=== PATIENT | female | born 1990 | race Caucasian/White ===

== ENCOUNTER 2024-02-17 19:01 | Outpatient (REF) | payer BC, SELFPAY ==
[2024-02-24 13:08] LABS: Age Gdln ACOG Testing Note (.); HPV Aptima Negative (Negative); IGP, Aptima HPV, rfx 16/18,45 Note (.)
== END 2024-02-17 19:02 | disposition home or self-care (01) ==
LOC: LAB 19:01
PROVIDERS: Visit Provider Physician Assistant
DX: Z01.419 Encounter for gynecological examination (general) (routine) without abnormal findings (principal)
CPT/HCPCS: 87624; 88175

== ENCOUNTER 2025-05-14 21:44 | Outpatient (REF) | payer BC, SELFPAY ==
--- OUTSIDE RECORDS SUMMARY | 2025-05-02 11:30 | XMS_ITS | Encounter Summary ---
Author Organization [facility] Address [address] [place] [address] Care Team Providers Care Graves Registration Specialist Name Role Phone Perico Pope Primary Care Provider [phone] Encounter Details DateTypeDepartmentCare Team (Latest Contact Info)Ujudpboldvy51/17/2025 11:30 AM ESTClinical Support [facility] [address] [facility] [address] [place] [address] Lesli Cain, [facility] [address] [facility] [address] [place] [address] ESTEFANY (generalized anxiety disorder) ; Moderate episode of recurrent major depressive disorder (HCC) Social History Tobacco UseTypesPacks/DayYears UsedDateSmoking Tobacco: Some DaysCigarettes0.310 Smokeless Tobacco: NeverAlcohol UseStandard Drinks/WeekCommentsNever0 (1 standard drink = 0.6 oz pure alcohol)B1300 Health LiteracyAnswerDate RecordedHow often do you need to have someone help you when you read instructions, pamphlets, or other written material from your doctor or pharmacy?Never 02/02/2024Social Connection and Isolation PanelAnswerDate RecordedIn a typical week, how many times do you talk on the phone with family, friends, or neighbors?Once a week02/02/2024How often do you get together with friends or relatives?Once a week02/02/2024How often do you attend caodaism or pentecostal services?Never4Do you belong to any clubs or organizations such as caodaism groups, unions, fraternal or athletic groups, or school groups?No 02/02/2024How often do you attend meetings of the clubs or organizations you belong to?Never02/02/2024re you , , , , never , or living with a partner?Jdlepwm3702/02/2024UDIT-CAnswerDate RecordedQ1: How often do you have a drink containing alcohol?Monthly or less02/02/2024Q2: How many drinks containing alcohol do you have on a typical day when you are drinking?1 or Q3: How often do you have six or more drinks on one occasion?Never02/02/2024Overall Financial Resource Strain (CARDIA)AnswerDate RecordedHow hard is it for you to pay for the very basics like food, housing, medical care, and heating?Somewhat hard02/02/2024HQ-2AnswerDate RecordedPatient Health Questionnaire-2 Eiiyb990[facility] [place] of [facility] - Occupational Stress QuestionnaireAnswerDate RecordedDo you feel stress - tense, restless, nervous, or anxious, or unable to sleep at night because your mind is troubled all the time - these days?Not at all02/02/2024Exercise Vital SignAnswerDate RecordedOn average, how many days per week do you engage in moderate to strenuous exercise (like a brisk walk)?7 days02/02/2024On average, how many minutes do you engage in exercise at this level?60 min02/02/2024Hunger Vital SignAnswerDate RecordedWithin the past 12 months, you worried that your food would run out before you got the money to buymore.Never true02/02/2024 Within the past 12 months, the food you bought just didn't last and you didn't have money to get more.Never true02/02/2024RAPARE - TransportationAnswerDate RecordedIn the past 12 months, has lack of transportation kept you from medical appointments or from getting medications?No02/02/2024In the past 12 months, has lack of transportation kept you from meetings, work, or from getting things needed for daily living?No02/02/2024Housing Stability Vital SignAnswerDate RecordedIn the last 12 months, was there a time when you were not able to pay the mortgage or rent on time?No02/02/2024In the past 12 months, how many times have you moved where you were living?t any time in the past 12 months, were you homeless or living in a chcf (including now)?No02/02/2024 CommentsUnknownSex and Gender InformationValueDate RecordedSex Assigned at UhrpgGkcduz17/18/2024 9:56 AM EDTLegal AauMyotpm67/15/2023 8:27 PM EDTGender TpwlivzuUllkur37/18/2024 9:56 AM EDTSexual OrientationNot on filedocumented as of this encounter Plan of Treatment DateTypeDepartmentCare Team (Latest Contact Info)Gtldpxgoihc98/07/2026 11:30 AM ESTClinical Support [facility] [place] [facility] [address] [place] [phone] Lesli Cain [facility] [address] [place] [address] 05/29/2025 9:30 AM ESTAncillary Procedure [facility] [address] [place] [address] [place] [phone] 05/30/2025 9:30 AM ESTClinical Support [facility] [place] [facility] [address] [place] [address] Lesli Cain [facility] [address] [place] [address] 06/06/2025 12:30 PM ESTClinical Support [facility] [place] [facility] [address] [place] [address] Lesli Cain [facility] [address] [place] [address] 06/11/2025 8:30 AM ESTOffice Visit [facility] [place] [facility] [address] [place] [phone] Sonya Valencia PA [address] [facility] [place] [address] 07/18/2025 10:20 AM ESTOffice Visit [facility] [place] [facility] [address] [facility] [address] [place] [address] Perico Pope DO [address] [facility] [address] [place] [address] documented as of this encounter Visit Diagnoses Diagnosis ESTEFANY (generalized anxiety disorder) Generalized anxiety disorder Moderate episode of recurrent major depressive disorder (HCC) documented in this encounter Care Teams Team MemberRelationshipSpecialtyStart DateEnd Date Perico Pope DO [address] [facility] [address] [place] [address] PCP - General02/02/24documented as of this encounter
--- OUTSIDE RECORDS SUMMARY | 2025-05-14 11:00 | XMS_ITS | Encounter Summary ---
Author Organization [facility] Address [address] [place] [address] Care Team Providers Care Prosthetic Aides Teacher Name Role Phone Perico Pope Primary Care Provider + [phone] Reason for Visit * ReasonCommentsWell Women Visit Encounter Details DateTypeDepartmentCare Team (Latest Contact Info)Dfarklrnugw68/29/2025 11:00 AM ESTProcedure Visit [facility] [place] [facility] [address] [facility] [place] [address] Radha Linder, ABI [address] [facility] [place] [address] PCOS (polycystic ovarian syndrome) (Primary Dx); Well woman exam with routine gynecological exam; Acne, unspecified acne type Social History Tobacco UseTypesPacks/DayYears UsedDateSmoking Tobacco: Some [...] relatives?Once a week02/02/2024How often do you attend evangelical or restoration services?Never02/02/2024o you belong to any clubs or organizations such as evangelical groups, unions, fraternal or athletic groups, or school groups?No 02/02/2024How often do you attend meetings of the clubs or organizations you belong to?Never02/02/2024re you , , , , never , or living with a partner?Aiojzox9502/02/2024UDIT-CAnswerDate RecordedQ1: How often do you have a [...] care, and heating?Somewhat hard02/02/2024HQ-2AnswerDate RecordedPatient Health Questionnaire-2 Fviww071[facility] [place] of Occupational Health - Occupational Stress QuestionnaireAnswerDate [...] or from getting things needed for daily living?02/02/2024Housing Stability Vital SignAnswerDate RecordedIn the last 12 months, was there a time when you were not able to pay the mortgage or rent on time?02/02/2024In the past 12 months, how many times have you moved where you were living?t any time in the past 12 months, were you homeless or living in a fpc (including now)?02/02/2024 CommentsUnknownSex and Gender InformationValueDate RecordedSex Assigned at CnskpRcvtbq11/18/2024 9:56 AM EDTLegal NrdKpfcfl32/15/2023 8:27 PM EDTGender NbwgifoyPkdwkj48/18/2024 9:56 AM EDTSexual OrientationNot on filedocumented as of this encounter Last Filed Vital Signs Vital SignReadingTime TakenCommentsBlood Lctjtbbn889/6405/14/2025 11:13 AM EST Pulse--Temperature--Respiratory Rate--Oxygen Saturation--Inhaled Oxygen Concentration--Xnhzkr737 kg (241 lb 12.8 oz)05/14/2025 11:13 AM ESTHeight--Body Mass Index39.0309 10:44 AM EDTdocumented in this encounter Progress Notes * Radha Linder NP - 05/14/2025 11:00 AM EST Reason for Appointment: Patient ID: Karly Andrade is a 35 y.o. female who presents for Well Women Visit Patient presents today for Annual Exam. MEDICATIONS Current Outpatient Medications Medication Instructions Adapalene-Benzoyl Peroxide 0.1-2.5 % gel Apply pea-size amount to T-zone, chin and problem areas nightly. buPROPion SR (WELLBUTRIN SR) 150 mg, Oral, 2 times daily, Do not crush, chew, or split. metFORMIN XR (GLUCOPHAGE-XR) 500 mg, Oral, Daily with evening meal, Do not crush, chew, or split. naltrexone (DEPADE) 50 mg, Oral, Daily ALLERGIES No Known Allergies PROBLEMS Active Ambulatory Problems Diagnosis Date Noted Class 3 severe obesity without serious comorbidity with body mass index (BMI) of 40.0 to 44.9 in adult ([facility]) 05/12/2021 Hidradenitis suppurativa 05/12/2021 Tobacco use 05/12/2021 Nicotine dependence 07/17/2024 Mixed urge and stress incontinence 07/17/2024 Gastroesophageal reflux disease 07/17/2024 Social anxiety disorder 07/17/2024 Migraine 07/17/2024 Dysthymia 07/17/2024 ESTEFANY (generalized anxiety disorder) 07/31/2024 Moderate episode of recurrent major depressive disorder (HCC) 07/31/2024 Resolved Ambulatory Problems Diagnosis Date Noted Chronic tonsillitis 04/28/2017 Stress incontinence of urine 02/09/2024 Past Medical History: Diagnosis Date Headache History of transfusion 12/26/2017 Obesity Ovarian cyst Panic attack HISTORY PAST MEDICAL HISTORY SOCIAL HISTORY Past Medical History: Diagnosis Date Chronic tonsillitis 04/28/2017 Headache History of transfusion 12/26/2017 Obesity Ovarian cyst Panic attack Stress incontinence of urine 02/09/2024 Social History Tobacco Use Smoking status: Some Days Current packs/day: 0.25 Average packs/day: 0.3 packs/day for 10.0 years (2.5 ttl pk-yrs) Types: Cigarettes Smokeless tobacco: Never Substance Use Topics Alcohol use: Never Drug use: Never FAMILY HISTORY Family History Problem Relation Name Age of Onset Cancer Mother Jana boat dispatcher Diabetes Mother Jana boat dispatcher 40 Ovarian cancer Mother Jana boat dispatcher Parkinsonism Mother Jana boat dispatcher Cancer Maternal Grandmother Carlota sánchez lymphoma, lung cancer Diabetes Maternal Grandfather Osmar mallory Parkinsonism Maternal Grandfather Osmar mallory ADD / ADHD Other Sincere Maya (Son) ADD / ADHD Other Sincere Maya (Son) ADD / ADHD Other Sincere Maya (Son) ADD / ADHD Other Sincere Maya (Son) SURGICAL HISTORY Past Surgical History: Procedure Laterality Date TUBAL LIGATION REVIEW OF SYSTEMS Review of Systems: Review of Systems Constitutional: Negative. HENT: Negative. Eyes: Negative. Respiratory: Negative. Cardiovascular: Negative. Gastrointestinal: Negative. Genitourinary: Positive for menstrual problem. Musculoskeletal: Negative. Skin: Negative. Facial acne, hirsutism and history of hidradenitis suppurativa. Neurological: Negative. All other systems reviewed and are negative. Hematological: Negative. Endocrine: Negative. Allergic/Immunologic: Negative. OBJECTIVE Objective: Physical Exam Constitutional: Appearance: Normal appearance. She is well-developed. Genitourinary: Vulva normal. Breasts: Breasts are soft. Right: Normal. Left: Normal. Cardiovascular: Rate and Rhythm: Normal rate and regular rhythm. Pulmonary: Effort: Pulmonary effort is normal. Breath sounds: Normal breath sounds. Abdominal: General: Bowel sounds are normal. There is no distension. Palpations: Abdomen is soft. Tenderness: There is no abdominal tenderness. There is no guarding or rebound. Musculoskeletal: General: No swelling. Normal range of motion. Right lower leg: No edema. Left lower leg: No edema. Neurological: Mental Status: She is alert and oriented to person, place, and time. Skin: General: Skin is warm and dry. Psychiatric: Mood and Affect: Mood normal. Behavior: Behavior normal. Vitals and nursing note reviewed. Exam conducted with a visual display associate present. Vitals: Estimated body mass index is 39.03 kg/m?? as calculated from the following: Height as of 01/18/25: 5' 6 . Weight as of this encounter: 241 lb 12.8 oz. BP: 110/64 Patient's last menstrual period was 03/29/2025. Assessment/Plan ICD-10-CM 1. PCOS (polycystic ovarian syndrome) E28.2 hCG, quantitative, TSH T4, free CBC and differential Follicle stimulating hormone Luteinizing hormone Hemoglobin A1c DHEA-sulfate DHEA US Pelvis w/ TV DHEA metFORMIN XR (Glucophage-XR) 500 MG 24 hr tablet 2. Well woman exam with routine gynecological exam Z01.419 Pap Smear HPV DNA probe, amplified 3. Acne, unspecified acne type L70.9 Adapalene-Benzoyl Peroxide 0.1-2.5 % gel Assessment/Plan Annual Exam: Patient presents today for an annual exam. Patient states she is doing well and has complaints of acne break out over the last several months. She reports a 20 lb weight gain in the last 4 months after she discontinued the use of Adipex that was prescribed by her PCP. She also reports dysfunctionaluterine bleeding. With a heavy cycle this month and really light shortened cycle the previous month. She reports a history of ovarian cysts and surgical history of a tubal ligation. Prescription for Epiduo was sent to her pharmacy for cystic acne and will trial metformin. PCOS labs to be obtained as well as a pelvic ultrasound and patient will follow up after diagnostic testing in approximately four weeks. Pap was obtained without difficulty. Follow Up: Patient is to return in one year for annual unless needed otherwise. Documented by Yelitza Dias LPN on behalf of: Radha Linder NP documented in this encounter Plan of Treatment DateTypeDepartmentCare Team (Latest Contact Info)Hlwpamzymjw53/07/2026 11:30 AM ESTClinical Support [facility] [place] [facility] [address] [place] [address] Lesli Cain, [facility] [address] [place] [address] 05/29/2025 9:30 AM ESTAncillary Procedure [facility] [address] [facility] [place] [id number] 05/30/2025 9:30 AM ESTClinical Support [facility] [place] [facility] [address] [place] [address] Lesli Cain, [facility] [address] [place] [address] 06/06/2025 12:30 PM ESTClinical Support [facility] [place] [facility] [address] [place] [address] Lesli Cain, [facility] [address] [place] [address] 06/11/2025 8:30 AM ESTOffice Visit [facility] [address] [facility] [place] [phone] Sonya Valencia PA [address] [facility] [place] [address] 07/18/2025 10:20 AM ESTOffice Visit [facility] [address] [place] [address] Perico Pope DO [address] [facility] [address] [place] [address] NameTypePriorityAssociated DiagnosesOrder SchedulePap SmearPathology and CytologyRoutine Well woman exam with routine gynecological exam Ordered: 05/14/2025HPV DNA probe, amplifiedMicrobiologyRoutine Well woman exam with routine gynecological exam Ordered: 05/14/2025hCG, quantitative, pregnancyLabRoutine PCOS (polycystic ovarian syndrome) Ordered: 05/14/2025TSHLabRoutine PCOS (polycystic ovarian syndrome) Ordered: 05/14/2025T4, freeLabRoutine PCOS (polycystic ovarian syndrome) Ordered: 05/14/2025BC and differentialLabRoutine PCOS (polycystic ovarian syndrome) Ordered: 05/14/2025Follicle stimulating hormoneLabRoutine PCOS (polycystic ovarian syndrome) Ordered: 05/14/2025Luteinizing hormoneLabRoutine PCOS (polycystic ovarian syndrome) Ordered: 05/14/2025Hemoglobin V6fZoxSnxouna PCOS (polycystic ovarian syndrome) Ordered: 05/14/2025DHEA-sulfateLabRoutine PCOS (polycystic ovarian syndrome) Ordered: 05/14/2025DHEALabRoutine PCOS (polycystic ovarian syndrome) Expected: 05/14/2025 (Approximate), Expires: 05/14/2026US Pelvis w/ TVImaging Routine PCOS (polycystic ovarian syndrome) Expected: 05/14/2025, Expires: 05/14/2026documented as of this encounter Visit Diagnoses Diagnosis PCOS (polycystic ovarian syndrome)- Primary Polycystic ovaries Well woman exam with routine gynecological exam Routine gynecological examination Acne, unspecified acne type documented in this encounter Care Teams Team MemberRelationshipSpecialtyStart DateEnd Date Perico Pope DO [address] [facility] [address] [place] [address] PCP - General02/02/24documented as of this encounter
--- OUTSIDE RECORDS SUMMARY | 2025-05-14 21:49 | XMS_ITS | CCD ---
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 Name Role Phone PARSONS, VIOLET Unavailable Unavailable MYERHOLTZ, JANA Unavailable Unavailable PARSONS, VIOLET Unavailable Unavailable PARSONS, VIOLET Unavailable Unavailable MYERHOLTZ, JANA Unavailable Unavailable PARSONS, VIOLET Unavailable Unavailable MYERHOLTZ, JANA Unavailable Unavailable PARSONS, VIOLET Unavailable Unavailable MYERHOLTZ, JANA Unavailable Unavailable PARAM SUBRAMANIAN Attending Unavailable Daphnie Andrade Unavailable ARMEN Aleman Attending Provider Liliam Lim Unavailable Dottie Aleman Unavailable MARKER ., DR CHRISTIANSON Admitting Unavailable MARKER ., DR CHRISTIANSON Attending Unavailable [facility] Primary Care Unava ilable MARKER ., DR CHRISTIANSON Consulting Unavailable KRYS PENALOZA Consulting Unavailable NITA DONALD Consulting Unavailable ARMEN Aleman Attending Provider NON STAFF Primary Care Provider UnavailALEX Campos Attending Provider NO FAMILY, PHYSICIAN Primary Care Unavailable Liliam Lim Admitting Unavailable Liliam Lim Attending Unavailable NON STAFF Primary Care Unavailable Dottie Aleman Admitting Unavailable Dottie Aleman Attending Unavailable Lynn Pope DO Primary Care Provider Lynn Pope DO Unavailable LYNN POPE Attending Unavailable LESLI CAIN Attending UnavailLYNN Alvarez Referring Unavailable LESLI CAIN Attending UnavailLESLI Chan Attending UnavailLESLI Chan Attending LESLI Ramos Attending UnavailLYNN Alvarez Attending Unavailable ANT, LESLI Xavier Attending Unavailabl yuliana CAIN, LESLI Xavier Attending Unavailabl yuliana CAIN, LESLI Xavier Attending Unavailabl yuliana CAIN, LESLI Xavier Attending UnavailLYNN Alvarez Attending Unavailable ANT, LESLI Xavier Attending Unavailtiffanie CAIN, LESLI Xavier Attending Unavailtiffanie CAIN, LESLI Xavier Attending Unavailabl yuliana CAIN, LESLI Xavier Attending Unavailabl yuliana FRITZANT, LESLI Xavier Attending Unavailtiffanie CAIN, LESLI Xavier Attending Unavailtiffanie POPE, LYNN Walker Attending Unavailable Medications Current Medications MedicationDrug Class(es)DatesSig (Normalized)Sig (Original)12 hr buPROPion hydrochloride 150 mg extended release oral tablet (16 sources)AminoketoneStart: 72-86-2309fahl 1 tablet by mouth every twelve hours in the morningbuPROPion SR (Wellbutrin SR) 150 MG 12 hr tablet Indications: Class 2 obesity due to excess calories without serious comorbidity with body mass index (BMI) of 35.0 to 35.9 in adult Take 1 tablet (150mg) by mouth in the morning and 1 tablet (150 mg) before bedtime. Do not crush, chew, or split. 60 tablet 5 01/18/2025 ActiveStart: 01-18-2025 End: 25-09-9187wqco 2 tablets by mouth in the morningbuPROPion (Wellbutrin) 75 MG tablet Indications: Class 2 obesity due to excess calories without serious comorbidity with body mass index (BMI) of 35.0 to 35.9 in adult Take 2 tablets (150 mg) by mouth in the morning and 2 tablets (150 mg) before bedtime. 120 tablet 5 01/18/2025 01/18/2025 Discontinuedcholecalciferol 0.05 mg oral tablet (20 sources)Vitamin DStart: 85-05-1174wckd 1 tablet by mouth once daily cholecalciferol (Vitamin D-3) 50 MCG (1999) tablet Indications: Vitamin D insufficiency Take 1 tablet (50 mcg) by mouth Daily 90 tablet 3 02/16/2024 Activecyclobenzaprine hydrochloride 10 mg oral tablet (2 sources)Muscle RelaxantStart: 03-01-0262tgpv 1 tablet by mouth every eight hoursCyclobenzaprine HCl 10 MG 1 tablet as needed Orally Three times a day for 10 days Apr, ActivemethylPREDNISolone 4 mg oral tablet (4 sources)CorticosteroidStart: 74-22-3457lsjfryFBYZTERtnsjy 4 MG as directed Orally for daily dose take half with breakfast, half with dinner for 6 days Jul, ActiveStart: 02-70-5008wwksxrCJCTKCXkcrvg 4 MG start tomorrow as directed Orally Once a day for 6 days Apr, Activemupirocin 0.02 mg/mg topical ointment (1 source)RNA Synthetase Inhibitor AntibacterialStart: 06-21-3887Mnoznpcoe 2 % 1 application Externally Three times a day for 7 days Aug, Active naltrexone hydrochloride 50 mg oral tablet (15 sources)Opioid AntagonistStart: 01-18-2025 End: 18-56-0348bogl 35-35.9 tablets by mouth once dailynaltrexone (Depade) 50 MG tablet Indications: Class 2 obesity due to excess calories without serious comorbidity with body mass index (BMI) of 35.0 to 35.9 in adult Take 1 tablet (50 mg) by mouth Daily 30 tablet 5 01/18/2025 01/18/2026 ActiveNo Name (No Known Home Meds) (1 source)Start: 92-85-6871Vd Name (No Known Home Meds) Active December 04, 2023 12:00ampredniSONE 20 mg oral tablet (1 source)Start: 09-94-8022jeln 1 tablet by mouth every eight hourspredniSONE 20 MG 1 tablet Orally Three times a day for 5 days Aug, Active Completed/Discontinued Medications MedicationDrug Class(es)DatesSig (Normalized)Sig (Original)amoxicillin 80 mg/ml / clavulanate 11.4 mg/ml oral suspension (1 source)Penicillin-class AntibacterialStart: 07-16-2023 End: 00-76-4366fihg 1 mL by mouth twice dailyAmoxicillin-Pot Clavulanate Discontinued 11 ML PO Twice daily 220 July 16, 2023 1:00am December 04, 2023 11:54amphentermine hydrochloride 37.5 mg oral tablet (20 sources)Sympathomimetic Amine AnorecticStart: 02-16-2024 End: 90-34-0033toid 1 tablet by mouth before mealtimephentermine (Adipex-P) 37.5 MG tablet Indications: Abnormal weight gain Take 1 tablet (37.5 mg) by mouth in the morning. Take before meals. 30 tablet 11/27/2024 01/18/2025 Discontinued topiramate 25 mg oral tablet (20 sources)Start: 04-21-2024 End: 26-27-0265vwxt 1 tablet by mouth in the morningtopiramate (Topamax) 25 MG tablet Indications: Abnormal weight gain Take 1 tablet (25 mg) by mouth in the morning and 1 tablet (25 mg) before bedtime. 60 tablet 11 10/17/2024 01/18/2025 DiscontinuedToradol 30 mg/ml (4 sources)Start: 95-63-1709Zcpxkzc 30 mg/ml Apr, 30 mgtriamcinolone acetonide 40 mg/ml injectable suspension (4 sources)CorticosteroidStart: 05-12-3551Gsvpypw-40 Apr, 40 mg Problems Active Problems Problem ClassificationProblemDateDocumented DateEpisodic/ChronicAbdominal pain (2 sources)Acute abdominal pain; Translations: [Left lower quadrant pain] 16-57-0216WacuweueOrqwz and chronic tonsillitis (20 sources)Chronic tonsillitis; Translations: [Chronic tonsillitis]Onset: 04-28-2017 Resolved: 163521-53-0971BfrzjzmOhyfguyhos disorders (5 sources)Adjustment disorder; Translations: [Adjustment disorder, unspecified] 94-56-7185MteteisTcettwh disorders (20 sources)Generalized anxiety disorder; Translations: [Generalized anxiety disorder]Onset: 628629-60-1471DtkqajwLafydlpvv of lipid metabolism (2 sources)Dyslipidemia; Translations: [Hyperlipidemia, unspecified]02-16-2024 ChronicE Codes: Fall (1 source)Fall (on) (from) unspecified stairs and steps, initial encounter; Translations: [FALL ON FROM UNS STAIRS STEPS INIT]Onset: 24-78-0101Cghnllzc Esophageal disorders (20 sources)Gastroesophageal reflux disease; Translations: [Gastro-esophageal reflux disease without esophagitis]Onset: 482533-06-2303Dhtixfx Genitourinary symptoms and ill-defined conditions (20 sources)Genuine stress incontinence; Translations: [Stress incontinence (female) (male)]Onset: 02-09-2024 Resolved: 822252-87-8801KtnmjeyGglowvvlwrvhf symptoms and ill-defined conditions (5 sources)Dysuria; Translations: [Dysuria]EpisodicHeadache; including migraine (20 sources)Migraine; Translations: [Migraine, unspecified, not intractable, without status migrainosus]Onset: 076065-01-4150BmmazrvSerigwc and fatigue (2 sources)Fatigue; Translations: [Chronic fatigue, unspecified]02-09-2024 ChronicMood disorders (20 sources)Moderate recurrent major depression; Translations: [Major depressive disorder, recurrent, moderate]Onset: 832563-04-3012NpwtwdyKzadan and/or delivery (3 sources)Encounter for full-term uncomplicated delivery; Translations: [Encounter for supervision of normal , unspecified, unspecified trimester]Onset: 00-61-3812LajujslzGoylaqwtnya deficiencies (2 sources)Vitamin D deficiency; Translations: [Vitamin D deficiency, unspecified]19-75-7299TqnrhrpNwrmf female genital disorders (2 sources)History of gynecological disorder; Translations: [Personal history of other diseases of the female genital tract]80-42-1335XgasyximBicky injuries and conditions due to external causes (1 source)Unspecified injury of lower back, initial encounterEpisodicOther nutritional; endocrine; and metabolic disorders (20 sources)Severe obesity; Translations: [Class 3 severe obesity without serious comorbidity with body mass index (BMI) of 40.0 to 44.9 in adult]Onset: 695231-99-1699XztwblmWeieh nutritional; endocrine; and metabolic disorders (2 sources)Insulin resistance; Translations: [Insulin resistance]02-09-2024 ChronicOther nutritional; endocrine; and metabolic disorders (3 sources)Obesity caused by energy imbalance; Translations: [Class 2 obesity due to excess calories without serious comorbidity with body mass index (BMI) of 35.0 to 35.9 in adult]76-61-0436PwvavtwCgvsw nutritional; endocrine; and metabolic disorders (17 sources)Abnormal weight gain; Translations: [Abnormal weight gain]02-16-2024 EpisodicOther screening for suspected conditions (not mental disorders or infectious disease) (4 sources)Patient encounter status; Translations: [Encounter for screening for cardiovascular disorders]66-73-8596ZqpgxsbxIrvzb upper respiratory infections (3 sources)Acute pharyngitis, unspecified; Translations: [Streptococcal tonsillitis ]Onset: 90-72-1888RlrdrzalDpejmbvdtyb; intervertebral disc disorders; other back problems (5 sources)Bilateral inflammation of sacroiliac joint; Translations: [Sacroiliitis, not elsewhere classified]ChronicSubstance-related disorders (20 sources)Nicotine dependence, cigarettes, uncomplicated; Translations: [Nicotine dependence]Onset: 139889-51-1873AcccijzGcppokqpfvk injury; contusion (1 source)Contusion of lower back and pelvis, initial encounter; Translations: [CONTUSION LOWER BACK PELVIS INITIAL]Onset: 20-07-9256GhpyqvsyQhnncworjbxg (1 source)iup / iup()Onset: 57-14-8605Vjkcgrmkcpqq (2 sources)LOW BACK PAIN, UNSPECIFIED; Translations: [LOW BACK PAIN, UNSPECIFIED]Onset: 70-54-1409Imcibovnewec (1 source)Unspecified injury of lower back, initial encounter; Translations: [Unspecified injury of lower back, initial encounter]Onset: 05-12-2022 Past or Other Problems Problem ClassificationProblemDateDocumented DateEpisodic/ChronicOther connective tissue disease (1 source)Other specified soft tissue disordersOnset: 09-12-2021 Resolved: 03-98-9428XpwgdbicOiehr skin disorders (20 sources)Hidradenitis suppurativa; Translations: [Hidradenitis suppurativa] Onset: 447851-17-3755VsasyohgXqogxnsq codes; unclassified (20 sources)Tobacco use and exposure - finding; Translations: [Tobacco use] Onset: 745687-03-9619ZybccbahJjqjrhvsxwbf (1 source)iup; Translations: [iup]Onset: 59-87-5612Aknattekalsz (1 source)LOW BACK PAIN, UNSPECIFIED; Translations: [LOW BACK PAIN, UNSPECIFIED] Onset: 05-10-2022 Results Test NameValueInterpretationReference RangeFacilityIGP,APTIMA HPV,AGE GDLNon 38-14-9639DJU [facility] AC TESTINGNote.NOMS HealthcareComment on above:TESTS RESULT FLAG UNITS REF RANGE LAB Clinician Provided Cytology Information Source.............Cervix;Endocervix Other.............. No. of containers..01 ThinPrep Vial Age Walter ROMERO Barbie... FLAG LEGEND: L-Low Normal,H-High Normal,LL-Alert Low,HH-Alert High <-Panic Low,>-Panic High,A-Abnormal,AA-Critical Abnormal Performed at: 01 =[address] [place] [address] Amrita John MD, HPV APTIMANegativeNegativeNOMS HealthcareComment on above:This nucleic acid amplification test detects fourteen high- risk HPV types (16,18,31,33,35,39,45,51,52,56,58,59,66,68) without differentiation. Performed at: =[address] [id number] Pleater: Amrita John MD, Phone: [phone] Performed at: WB - [facility] [address], [place] [id number] Pleater: Amrita John MD, Phone: [phone] IGP, APTIMA HPV, RFX 16/18,45Note.NOMS HealthcareComment on above:TESTS RESULT FLAG UNITS REF RANGE LAB DIAGNOSIS: 02 NEGATIVE FOR INTRAEPITHELIAL LESION OR MALIGNANCY. Specimen adequacy: 02 Satisfactory for evaluation. Endocervical and/or squamous metaplastic cells (endocervical component) are present. Performed by: 02 Albino Landaverde, Structural Steel Erector ([facility]) . 02 Note: Note 02 The Pap smear is a screening test designed to aid in the detection of premalignant and malignant conditions of the uterine cervix. It is not a diagnostic procedure and should not be used as the sole means of detecting cervical cancer. Both false-positive and false-negative reports do occur. Test Methodology: Note 02 This liquid based ThinPrep(R) pap test was screened with the use of an image guided system. HPV Genotype Reflex Note 02 Criteria not met, HPV Genotype not performed. FLAG LEGEND: L-Low Normal,H-High Normal,LL-Alert Low,HH-Alert High <-Panic Low,>-Panic High,A-Abnormal,AA-Critical Abnormal Performed at: 02 WB [facility] [address] [place] [address] Amrita John MD, BRUSH-SPATULA CERVIX ENDOCERVIX CLINISYNCNOMS HealthcareThroat Cultureon 09-66-4987Layqlq cultureModerate Normal Respiratory Marilyn 2 Days PERFORMED BY: [facility] [address] [id number] PATHOLOGIST NEUROSURGICAL NURSE PRACTITIONER RENA ORNELAS M.D.[facility] SystemComment on above: Performed By: #### CUT #### [facility] [address] [id number] USAXR sacrum coccyx min 2Von 93-92-0709VV sacrum coccyx min 2VSt. [facility] [employer] Other XR sacrum coccyx min 2VDallas [facility] [employer] Other XR sacrum coccyx min [id number] [place] [address] [employer] Other XR sacrum coccyx min 2[place]SE[place], [place] [address]Om[address] [employer] Other XR sacrum coccyx min 2VXRCoral Gables Hospital [employer] Other XR sacrum coccyx min 2VSBates County Memorial Hospital [employer] Other XR sacrum coccyx min 2VPatient: Isaac Thao MR#: [id number] [employer] Other XR sacrum coccyx min [id number] [employer] Other XR sacrum coccyx min 2VDOB: 1990 Acct:[id number] [employer] Other XR sacrum coccyx min 2VAge/Sex: 32 / F ADM Date: 05/12/22[place] [employer] Other XR sacrum coccyx min 2VLoc: XDUCLY Room: Type: [facility] [employer] Other XR sacrum coccyx min 2VAttending Dr: Dottie Aleman 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 Space Other XR sacrum coccyx min 2VCopies to: ASHJACI SHOOKHANIE [facility] CENTERVDI Space Other xr sacrum coccyx min 2VOrdering Provider: DOTTIE ALEMAN [facility] CENTERVDI Space Other XR sacrum coccyx min 2VDate of Service: 05/12/22[facility] HospitalI-DISPO Other XR sacrum coccyx min 2VAccession #: ([id number]) XR/XR sacrum coccyx min 2V: PAIN AFTER [employer] Other XR sacrum coccyx min 2V([id number]) XR/XR hip RT min 2V(w/wo pelvis)*: PAIN AFTER [employer] Other XR sacrum coccyx min 2VRIGHT HIP - 2 views: 1 view pelvis, sacrum/coccyx 6 viewsBarton County Memorial HospitalI-DISPO Other XR sacrum coccyx min 2VCLINICAL HISTORY: Fell 3 days ago on ice. Pain in tailbone area and right hip.[employer] Other xr sacrum coccyx min 2VCOMPARISON: NoneQuividi [employer] Other xr sacrum coccyx min 2VFINDINGS: Right hip/pelvis: No focal soft tissue abnormality. No acute bony process is seen. [employer] Other XR sacrum coccyx min 2Vspaces of the hips appear maintained. Tubal ligation clips.[employer] Other xr sacrum coccyx min 2VSacrum/coccyx: Mild sclerosis involving the SI joints. Sacral foramina appear intact. No acute bonyRedbeacon Other XR sacrum coccyx min 2Vprocess is seen.[employer] Other XR sacrum coccyx min 2VORDER #: [id number] XR/XR hip RT min 2V(w/wo pelvis)*[employer] Other XR sacrum coccyx min 2VIMPRESSION:[employer] Other XR sacrum coccyx min 2VNO ACUTE BONY PROCESS.[employer] Other XR sacrum coccyx min 2VBILATERAL SACROILIITIS..[employer] Other XR sacrum coccyx min 2VImpression dictated by: Baldo Pandya Jr., D.OBirdie05/12/2022 10:34 [facility] [employer] Other xr sacrum coccyx min 2VDictation Location: [place] [address] [employer] Other xr sacrum coccyx min 2VTranscribed By: [facility] 05/12/22 [facility] Other xr sacrum coccyx min 2VDictated By: Baldo Pandya Jr, DO 05/12/22 [facility] Other xr sacrum coccyx min 2VSigned By:[employer] Other xr sacrum coccyx min 2V107/13/21 [facility] Other xr sacrum coccyx min 2VBAR[facility] [place] [address] [place] [address] XRay Report Signed Patient: Isaac Thao MR#: [id number] : 1990 Acct:[id number] Age/Sex: 32 / F ADM Date: 05/12/22 Loc: XDUCLY Room: Type: [facility] Attending Dr: Dottie AYERS Copies to: DOTTIE ALEMAN Ordering Provider: DOTTIE ALEMAN Date of Service: 05/12/22 XR/XR sacrum coccyx min 2V: PAIN AFTER FALL ([id number]) XR/XR hip RT min 2V(w/wo pelvis)*: PAIN AFTER FALL RIGHT HIP - 2 views: 1 view pelvis, sacrum/coccyx 6 views CLINICAL HISTORY: Fell 3 days ago on ice. Pain in tailbone area and right hip. COMPARISON: None FINDINGS: Right hip/pelvis: No focal soft tissue abnormality. No acute bony process is seen. Joint spaces of the hips appear maintained. Tubal ligation clips. Sacrum/coccyx: Mild sclerosis involving the SI joints. Sacral foramina appear intact. No acute bony process is seen. XR/XR hip RT min 2V(w/wo pelvis)* IMPRESSION: NO ACUTE BONY PROCESS. BILATERAL SACROILIITIS.. Impression dictated by: Baldo Pandya Jr., DBirdieOBirdie05/12/2022 10:34 AM Dictation Location: [place] [address] Transcribed By: [facility] 05/12/22 1034 Dictated By: Baldo Pandya Jr, DO 05/12/22 1032 Signed By: 05/12/22 1034[facility] SystemCT LSPINE WO CONon 36-25-1428WI LSPINE WO CONCT LSPINE WO CON INDICATION: 32 years old; Female.DORSALGIA, UNSPECIFIED Symptom/Location/Duration: Fall one day ago. Fell down 4 steps onto tailbone . Pain with movement. TECHNIQUE: CT of the lumbar spine.Contrast None. Sagittal and coronal images as well as axial reconstructions through the disc spaces were produced. 3-D reformats were created and reviewed for better evaluation of the lumbar spine alignment. Ionizing radiation dose reduced via iterative reconstruction/FBP blend and body size kV/mA adjustment. COMPARISON: None. The study includes the sacrum and does not include the distal coccyx. FINDINGS: POSTOPERATIVE CHANGES: None ALIGNMENT AND LORDOSIS: Normal lumbar lordosis. Mild S-shaped scoliosis in the lumbar spine. The upper curve is concave to the left with the lower curve concave to the right. VERTEBRAE: No fracture or vertebral body collapse is noted. As described above, the sacrum is included, however a distal coccygeal fracture cannot be excluded. No lytic or blastic lesions. DISC LEVELS: L1-L2: No disc herniation. No spinal canal or foraminal narrowing. L2-L3: No disc herniation. No spinal canal or foraminal narrowing. L3-L4: No disc herniation. No spinal canal or foraminal narrowing. L4-L5: No disc herniation. No spinal canal or foraminal narrowing. L5-S1: No disc herniation. No spinal canal or foraminal narrowing. LOWER THORACIC DISCS: At T12-L1, no focal disc herniation or bulging is seen. The central canal and neural foramina are patent. The study does not visualize the distal conus. OTHER: Posterior paraspinal muscles and psoas muscles are intact. IMPRESSION: 1. No fracture or vertebral body collapse is seen. The distal coccyx is not included. 2. No focal disc herniation, bulging, or bony stenosis. Electronically authenticated by: KRYS PENALOZA Date: 2022-05-11 00:02[facility] HospitalXR SACRUM_COCCYXon [id number] SACRUM_COCCYXEXAM: XR SACRUM_COCCYX HISTORY: DORSALGIA, UNSPECIFIED. Fall COMPARISON: None. TECHNIQUE: . FINDINGS: 2 views of the sacrum. The bones are intact. The alignment is anatomic. The joints are maintained. The soft tissues are grossly unremarkable. IMPRESSION: No evidence of sacral fracture or dislocation. Electronically authenticated by: NITA DONALD Date: 2022-05-11 01:47[facility] W Auto Differentialon 34-22-6308Smo at specimen collection= [facility] HospitalComment on above:Performed By: #### CBC Auto Diff #### [address] [address] Performed By: #### HCG,QUAL SERUM #### [address] [address] Abs Neut #6.2 10 X 3/mmNormal1.8 - 7.7[facility] Comment on above:Performed By: #### CBC Auto Diff #### [address] [address] Basophils/100 WBC (Bld)1 %Normal0 - 1[facility] Comment on above:Performed By: #### CBC Auto Diff #### [address] [place] [address] Eosinophils (Bld) [#/Vol]0.2 10 X 3/mmNormal0.0 - 0.5[facility] HospitalComment on above:Performed By: #### CBC Auto Diff #### [address] [address] Eosinophils/100 WBC (Bld)2 %Normal0 - 5[facility] Comment on above:Performed By: #### CBC Auto Diff #### [address] [address] Erythrocyte distribution width (RBC) [Ratio]14.9 %High11.5 - 14.[address] [facility] HospitalComment on above:Performed By: #### CBC Auto Diff #### [address] [address] Hematocrit (Bld) [Volume fraction]43.9 %Uddszh57.0 - 47.0WParkview Health Montpelier HospitalComment on above:Performed By: #### CBC Auto Diff #### [address] [address] Hemoglobin (Bld) [Mass/Vol]14.4 g/zFHcugjj16.0 - 16.0[facility] HospitalComment on above:Performed By: #### CBC Auto Diff #### [address] [address] Lymphocytes (Bld) [#/Vol]2.7 10 X 3/mmNormal1.0 - 4.0WParkview Health Montpelier HospitalComment on above:Performed By: #### CBC Auto Diff #### [address] [place] [address] Lymphocytes/100 WBC (Bld)28 %Hrdteg62 - 40[facility] Comment on above:Performed By: #### CBC Auto Diff #### [address] [place] [address] MCH (RBC) [Entitic mass]27.3 kvYkwhlx58.0 - 35.0[facility] HospitalComment on above:Performed By: #### CBC Auto Diff #### [address] [address] MCHC (RBC) [Mass/Vol]32.9 g/cDLumnkk49.0 - 36.0[facility] Anne HospitalComment on above:Performed By: #### CBC Auto Diff #### [address] [address] MCV (RBC) [Entitic vol]83.2 cZMlroau18.0 - 100.0[facility] HospitalComment on above:Performed By: #### CBC Auto Diff #### [address] [address] Monocytes/100 WBC (Bld)6 %Normal1 - 15[facility] Comment on above:Performed By: #### CBC Auto Diff #### [address] [address] Neutrophils/100 WBC (Bld)63 %Hvhhjp26 - 70[facility] Comment on above:Performed By: #### CBC Auto Diff #### [address] [address] Platelet mean volume (Bld) [Entitic vol]10.4 fLNormal7.5 - 11.[address] Anne HospitalComment on above:Performed By: #### CBC Auto Diff #### [address] [address] Platelets (Bld) [#/Vol]234 zOp27Tiaufo705 - 450WParkview Health Montpelier HospitalComment on above:Performed By: #### CBC Auto Diff #### [address] [address] RBC (Bld) [#/Vol]5.28 10 X 6/mmNormal4.20 - 5.40WParkview Health Montpelier HospitalComment on above:Performed By: #### CBC Auto Diff #### [address] [address] WBC (Bld) [#/Vol]9.7 10 X 3/mmNormal3.7 - 11.0WParkview Health Montpelier HospitalComment on above:Performed By: #### CBC Auto Diff #### [address] [address] hCG, Qualitative-Serumon 49-99-1525rTZ, Qualitative-SerumNegative NormalNEGATIVEMercy Health St. Anne HospitalComment on above:Performed By: #### HCG,QUAL SERUM #### [address] [address] Internal ControlACCEPTABLENormalMercy Health St. Anne HospitalComment on above:Performed By: #### HCG,QUAL SERUM #### [address] [address] Gynecology Office/Clinic Noteon [id number] Office/Clinic NoteChief Complaint 28 y/o new patient consult for prolapse, referred by Dr Parsons. Spoke to patient. History of Present Illness Contraception Type: control pill : 4 Para: 4 Last Menstrual Period: 07/13/18 Frequency of Menstruation: 28 days Abnormal vaginal discharge: No Breast lumps/pain: No Clotting with periods: No Heavy periods: Yes Hot flashes: No Irregular periods: No Night sweats: No Painful periods: Yes Painful sex: Yes Pelvic pain: No Spotting: No Vaginal dryness: No Vaginal itch/burning/odor: No Additional HPI details: States periods are very heavy and painful. Has pain with intercourse. Had ultrasound at about 3 months PP and endo BX Had uterine inversion after last delivery which was reduced under general anesthesia, has had issues with vaginal fullness and pain with intercourse since then. History of 4 vaginal deliveries, largest baby was 7 lbs 9 oz. patient does have some urinary incontinence mainly with urgency but does not wear a pad daily. Once she has the urge it just tricklesout referred for Possible robotic surgery Review of Systems Head Migraines: Yes Headaches: No Eyes Corrective lenses: Yes Blurred vision: Yes Ears, Nose, Throat Congestion: No Vertigo: No Sore throat: No Nasal drainage: No Cardio Respiratory Peripheral edema: No Heart Irregularity: No Chest Pain: No Shortness of Breath: No Gastrointestinal Bloating: Yes Reflux/heartburn: Yes Abdominal Pain: No Change in bowel habits: Yes Urinary Urinary Incontinence: Yes Urinary frequency: No Nocturia: No Urgency: No Painful urination: No Musculoskeletal Backpain: Yes Muscle aches: No Joint pain: No Integumentary Lesions: No Moles: No Acne: No Hair changes: No PsychoSocial Sleep Problems: No Anxiety: No Suicidal Ideation: No Homicidal Ideation: No Depression: No Endocrine Abnormal weight gain: Yes Abnormal weight loss: No Fatigue: No Additional Details Additional Details: Occasional migraines. Wears glasses to drive. Avoids triggers for reflux. C/o problems with BM's since last delivery/uterine inversion. C/o mixed stress and urge incontinence. Hasgained weight since last child was born. Pain Present Physical Exam Vitals & Measurements BP: 128/80 HT: 165.5 cm WT: 104.6 kg BMI: 38.19 General: [Alert and oriented, well nourished, no acute distress]. Eye: [PERRL, EOMI, normal conjuctiva]. HEENT: [Normocephalic,, normal hearing, moist oral mucosa, no scleral icterus,]. Neck: [Supple, non-tender, , no lymphadenopathy]. Lungs: [Clear to auscultation non-labored respiration]. Heart: [Normal rate, regular rhythm, no murmur, gallop or edema]. Abdomen: [Soft, non-tender, non-distended,, no masses]. Musculoskeletal: [Normal range of motion and strength, no tenderness or swelling]. Skin: [Skin is warm, dry and pink, no rashes or lesions]. Neurologic: [Awake, alert, and oriented X3, CN II-XII intact grossly]. Psychiatric: [Cooperative, appropriate mood and affect]. External Genitalia: [Normal urethral meatus, no lesions, vulvar skin intact]. Genitourinary: [Normal vaginal mucosa, no lesions or abnormal discharge, cervix intact without lesions or bleeding. POP stage 1 cystocele, rectocele and uterine prolapse. mild rotational decent of the UV seb with neg cough stress test. paravaginal weakness on left Bimanual exam: [Normal sized, non-tender, mobile uterus. No adnexal tenderness or masses]. Additional Vitals No qualifying data available. Assessment/Plan 1. History of uterine inversion 2. Mixed urge and stress incontinence 3. Female dyspareunia 4. Menorrhagia 5. Dysmenorrhea 6. Difficult bowel movements Physician Comments Plan repeat ultrasound since exam for POP not consistent for patients degree of pain then will discuss options including surgical options. Problem List/Past Medical History Ongoing No chronic problems Historical Procedure/Surgical History Uterine inversion repositioning-under general anesthesia Medications No active medications Allergies No Known Allergies Social History Alcohol Substance Abuse Denies All Tobacco 5-9 cigarettes (between 1/4 to 1/2 pack)/day in last 30 days Use:. Cigarettes, 5 per day. Cigarettes Family History Cancer of ovary: Mother. Cervical cancer: Mother. Hysterectomy: Mother. Uterine cancer: Mother. Diagnostic Results No qualifying data available. No qualifying data available. No qualifying data available. No qualifying data available. Electronically signed by Param Subramanian MD 08/12/18 09:[address] [facility] Ambulatory Patient Educationon [id number] Patient EducationPatient Education Materials Name: Isaac Boyle Current Date: 08/10/2018 11:31:15 [place] : 1990 The following sheet(s) are the Patient Education Leaflets for Isaac Boyle Urology Anatomy of the Female Urinary Tract Your urinary tract helps get rid of urine (your body's liquid waste). The kidneys collect chemicalsand water your body doesn't need. This is turned into urine. Urine travels out of the kidneys through the ureters to the bladder. The bladder holds urine until you're ready to release it. The urethracarries urine from the bladder out of the body. The main sphincter muscle circles the mid-urethra. Front view of female urinary tract. ? [id number] [employer]. [address] [place] [address]. All rights reserved. This information is not intended as a substitute for professional medical care. Always follow your healthcare professional's instructions.[facility] SystemDischarge Summaryon 12-28-2017 HIM IP Note OR TranscriptionNormalMercy Hat Creek HospitalProgress Noteon [id number] IP Note OR TranscriptionNormalMercy Hat Creek HospitalCBCon 38-27-8067Nkgvrhkkysu distribution width Auto Ratio (RBC)14.5 %High11.8-14.4 [facility] HospitalComment on above:Performed By: #### PRTYS ####[address] [place] [phone] Auto Volume Fraction (Bld)23.9 %Low36.3-47.1MUniversity Hospitals Parma Medical CenterComment on above:Performed By: #### PRTYS ####[address] [place] [address] Hemoglobin mass conc (Bld)8.2 g/dLLow11.9-15.1MercHartford HospitalComment on above:Performed By: #### PRTYS ####[address] [place] [address] MCH Auto Entitic mass (RBC)30.4 pg Xkteca10.2-33.5[facility] HospitalComment on above:Performed By: #### PRTYS ####[address] , [facility]83 MCHC Auto mass conc (RBC)34.3 g/hSDtztfo50.4-34.8[facility] HospitalComment on above:Performed By: #### PRTYS ####[address] , [place] [address] MCV Auto Entitic volume (RBC)88.5 fLNormal 82.6-102.9[facility] HospitalComment on above:Performed By: #### PRTYS ####[address] , [place] [address] NRBC Automated0.0 per 100 WBCNormal0.0[facility] HospitalComment on above:Performed By: #### PRTYS ####[address] , [place] [address] Platelet mean volume Auto Entitic volume (Bld)12.6 fLNormal 8.1-13.5[facility] HospitalComment on above:Performed By: #### PRTYS ####[address] [place] [id number] Platelets Auto #/vol (Bld)122 10*3/wHTzb240-417Moqyy Tiffin HospitalComment on above:Performed By: #### PRTYS ####[address] , [place] [address] RBC Auto #/vol (Bld)2.70 10*6/uLLow3.95-5.11[facility] HospitalComment on above:Performed By: #### PRTYS ####[address] , [facility]83 WBC Auto #/vol (Bld)10.0 10*3/uL Normal3.5-11.3MUniversity Hospitals Parma Medical CenterComment on above:Performed By: #### PRTYS ####[address] , [facility]83 Erythrocyte distribution width Auto Ratio (RBC)14.0 %Biefnc42.8-14.4[facility] HospitalComment on above:Performed By: #### PRTYS ####[address] [place] [id number] Hematocrit Auto Volume Fraction (Bld)23.5 %Low36.3-47.1MMercy Health St. Anne Hospital HospitalComment on above:Performed By: #### PRTYS ####[address] [place] [address] Hemoglobin mass conc (Bld)8.3 g/dLLow11.9-15.1MMercy Health St. Anne Hospital HospitalComment on above:Performed By: #### PRTYS ####[address] [place] [address] MCH Auto Entitic mass (RBC)30.4 pgNormal 25.2-33.5[facility] HospitalComment on above:Performed By: #### PRTYS ####[address] [place] [address] MCHC Auto mass conc (RBC)35.3 g/mENmpw07.4-34.8[facility] HospitalComment on above: Performed By: #### PRTYS ####[address] [place] [address] MCV Auto Entitic volume (RBC)86.1 fWBzrkcn38.6-102.9[facility] HospitalComment on above:Performed By: #### PRTYS ####[address] [place] [phone] NRBC Automated0.0 per 100 WBCNormal0.0[facility] HospitalComment on above:Performed By: #### PRTYS ####[address] [place] [address] Platelet mean volume Auto Entitic volume (Bld)12.6 fLNormal8.1-13.5[facility] HospitalComment on above:Performed By: #### PRTYS ####[address] [place] [address] Platelets Auto #/vol (Bld)115 10*3/nQVcm997-709Nemry Tiffin HospitalComment on above:Performed By: #### PRTYS ####[address] [place] [address] RBC Auto #/vol (Bld)2.73 10*6/uLLow3.95-5.11[facility] HospitalComment on above: Performed By: #### PRTYS ####[address] [place] [address] WBC Auto #/vol (Bld)11.3 10*3/uLNormal3.5-11.3[facility] HospitalComment on above:Performed By: #### PRTYS ####[address] [place] [address] Hgb/Hcton 83-96-7900Sdbyhfcjby Auto Volume Fraction (Bld)26.0 %Low36.3-47.1MercHolzer Health System HospitalComment on above: Performed By: #### HH ####[address] [place] [address] Hemoglobin mass conc (Bld)8.8 g/dLLow11.9-15.1[facility] HospitalComment on above:Performed By: #### HH ####[address] [place] [phone] Plan of Careon 18-91-9715ZSB IP Note OR TranscriptionNormalMercer County Community HospitalHI IP Note OR TranscriptionNormalMercy Hat Creek HospitalProgress Noteon 81-29-7156CNP IP Note OR TranscriptionNormalMercy Hat Creek HospitalHIM IP Note OR TranscriptionNormalMercy Hat Creek HospitalHIM IP Note OR TranscriptionNormalMercy Hat Creek HospitalHIM IP Note OR Technology Methodology Consultant NormalMercy Hat Creek HospitalHIM IP Note OR TranscriptionNormalMercy Hat Creek HospitalHIM IP Note OR TranscriptionNormalMercy Hat Creek HospitalHIM IP Note OR TranscriptionNormalMercy Hat Creek HospitalCBCon 60-41-2555Phmmcfqwznp distribution width Auto Ratio (RBC)13.7 %Kxphgo96.8-14.4[facility] HospitalComment on above:Performed By: #### FT4, TSH ####[address] [place] [address] #### PRENAT ####[address] [phone] [place], [place] [phone] Auto Volume Fraction (Bld)27.2 %Low36.3-47.1 [facility] HospitalComment on above:Performed By: #### FT4, TSH ####[address] [place] [address] #### PRENAT ####[address] [phone] [address] [place], [place] [phone] mass conc (Bld)9.3 g/dLLow11.9-15.1MUniversity Hospitals Parma Medical CenterComment on above:Performed By: #### FT4, TSH ####[address] [place] [phone] #### PRENAT ####[address] [phone] [place] [address] MCH Auto Entitic mass (RBC)29.9 cjJpppec93.2-33.5[facility] HospitalComment on above:Performed By: #### FT4, TSH ####[address] [place] [address] #### PRENAT ####[address] [phone] [place] [address] MC Auto mass conc (RBC)34.2 g/dL Glfhnq31.4-34.8[facility] HospitalComment on above:Performed By: #### FT4, TSH ####[address] [place] [address] #### PRENAT ####[address] [phone] [place] [address] MCV Auto Entitic volume (RBC)87.5 xYMvyvxn01.6-102.9[facility] HospitalComment on above: Performed By: #### FT4, TSH ####[address] [place] [address] #### PRENAT ####[address] [phone] [place] [address] NRBC Automated0.0 per 100 WBCNormal0.0[facility] Comment on above:Performed By: #### FT4, TSH ####[address] [place] [address] #### PRENAT ####[address] [phone] [place] [address] Platelets Auto #/vol (Bld)See Reflexed IPF YuxvjeNfmufa015-489Vyaym Tiffin HospitalComment on above:Performed By: #### FT4, TSH ####[address] [place] [phone]#### PRENAT ####[address] [phone] [place] [address] RBC Auto #/vol (Bld)3.11 10*6/uLLow3.95-5.11[facility] HospitalComment on above: Performed By: #### FT4, TSH ####[address] [place] [address] #### PRENAT ####[address] [phone] [place] [address] WBC Auto #/vol (Bld)16.7 10*3/uLHigh3.5-11.3[facility] Backus HospitalComment on above:Performed By: #### FT4, TSH ####[address] [place] [address] #### PRENAT ####[address] [phone] [place] [address] Platelet mean volume Auto Entitic volume (Bld)NOT REPORTEDNormal8.1-13.5[facility] HospitalComment on above: Performed By: #### FT4, TSH ####[address] [place] [address] #### PRENAT ####[address] [place] [phone] , [facility]83 CBC with Diffon 91-10-3231Bsm. Basophil0.05 k/uLNormal 0.00-0.20MerMar[facility] Hospital HospitalComment on above:Performed By: #### CDP ####[address] [place] [address] Abs.Imm.Granulocyte0.06 k/uLNormal0.00-0.30MerMar[facility] Hospital HospitalComment on above:Performed By: #### CDP ####[address] [place] [address] Abs.Neutrophil (Seg)10.15 k/uLHigh1.50-8.10Mer[facility] HospitalComment on above:Performed By: #### CDP ####[address] [place] [address] Basophils/100 WBC Auto (Bld)0 %Normal 0-2MercHolzer Health System HospitalComment on above:Performed By: #### CDP ####[address] , [place] [address] Eosinophils Auto #/vol (Bld)0.11 10*3/uLNormal0.00-0.44[facility] HospitalComment on above:Performed By: #### CDP ####[address] [place] [address] Eosinophils/100 WBC Auto (Bld)1 %Normal1-4MerMar[facility] Hospital HospitalComment on above:Performed By: #### CDP ####[address] [place] [address] Erythrocyte distribution width Auto Ratio (RBC)14.0 %Ajdkqy50.8-14.4[facility] HospitalComment on above:Performed By: #### CDP ####[address] , [facility]83 Hematocrit Auto Volume Fraction (Bld)38.3 %Fehvmx24.3-47.1 [facility] HospitalComment on above:Performed By: #### CDP ####[address] , [facility]83 Hemoglobin mass conc (Bld)12.7 g/uWWengeo84.9-15.1MercHol[facility] System HospitalComment on above:Performed By: #### CDP ####[address] [place] [address] Immature granulocytes #/vol (Bld)0 %Osjkpw3Dfdeu [facility]iffin HospitalComment on above:Performed By: #### CDP ####[address] [place] [address] Lymphocytes Auto #/vol (Bld)2.91 10*3/uLNormal1.10-3.70[facility] HospitalComment on above:Performed By: #### CDP ####[address] [place] [address] Lymphocytes/100 WBC Auto (Bld)20 %Vqk61-82Mnjhf [facility] HospitalComment on above: Performed By: #### CDP ####[address] [place] [phone] MCH Auto Entitic mass (RBC)29.3 zjQlpdjm29.2-33.5[facility] HospitalComment on above:Performed By: #### CDP ####[address] [place] [phone] MCHC Auto mass conc (RBC)33.2 g/dL Ubguak14.4-34.8[facility] HospitalComment on above:Performed By: #### CDP ####[address] [place] [address] MCV Auto Entitic volume (RBC)88.2 jKSmnviz71.6-102.9[facility] HospitalComment on above:Performed By: #### CDP ####[address] [place] [address] Monocytes Auto #/vol (Bld)1.01 10*3/uLNormal0.10-1.20[facility] HospitalComment on above:Performed By: #### CDP ####[address] [place] [address] Monocytes/100 WBC Auto (Bld)7 %Normal3-12[facility] HospitalComment on above:Performed By: #### CDP ####[address] [place] [address] Neutrophil (Seg)71 %Eepp53-81FrrghMercer County Community HospitalComment on above:Performed By: #### CDP ####[address] [place] [address] NRBC Automated0.0 per 100 WBCNormal0.0[facility] Comment on above:Performed By: #### CDP ####[address] [place] [address] Platelet mean volume Auto Entitic volume (Bld) 12.9 fLNormal8.1-13.5[facility] HospitalComment on above:Performed By: #### CDP ####[address] [place] [address] Platelets Auto #/vol (Bld)159 10*3/aIQsvmsj978-224JuifsMercer County Community HospitalComment on above:Performed By: #### CDP ####[address] [place] [address] RBC Auto #/vol (Bld)4.34 10*6/uLNormal3.95-5.11 [facility] HospitalComment on above:Performed By: #### CDP ####[address] [place] [phone] Auto #/vol (Bld)14.3 10*3/uLHigh3.5-11.3[facility] HospitalComment on above:Performed By: #### CDP ####[address] [place] [phone] Diff PerformedNOT REPORTEDNormalMercy Hat Creek HospitalComment on above:Performed By: #### CDP ####[address] [place], [place] [phone] Auto #/vol (Bld)NOT REPORTEDNormalMercy Hat Creek HospitalComment on above:Performed By: #### CDP ####[address] [place], [place] [phone] morphology finding Nom (Bld)NOT REPORTEDNormalMercy Hat Creek HospitalComment on above:Performed By: #### CDP ####[address] [place], [place] [phone] MorphologyNOT REPORTEDNormalMercy Hat Creek HospitalComment on above:Performed By: #### CDP ####[address] [place] [phone] Scr, Abuse, Uron 71-94-7461Czrtohixrvf(s),UrNegative NormalNEGMercy Hat Creek HospitalComment on above:Performed By: #### ISAIAS ####[address] [place] [address] Barbiturate(s),Ur NegativeNormalNEGMercy Hat Creek HospitalComment on above:Performed By: #### ISAIAS ####[address] [place] [phone] excess Calculated molar conc (Bld)NegativeNormalNEGMercy Hat Creek HospitalComment on above:Performed By: #### ISAIAS ####[address] [place] [address] Benzodiazepine(s)NegativeNormalNEGMercy Hat Creek HospitalComment on above:Performed By: #### ISAIAS ####[address] [place] [address] Buprenorphrine, UrNegativeNormalNEG [facility] HospitalComment on above:Performed By: #### ISAIAS ####[address] [place] [address] Cannabinoid(s),Ur NegativeNormalNEGMercy Hat Creek HospitalComment on above:Performed By: #### ISAIAS ####[address] [place] [address] Methadone Ql (U)NegativeNormalNEGMercy Hat Creek HospitalComment on above:Performed By: #### ISAIAS ####[address] [place] [address] Methamphetamine, UrNegativeNormalNEGMercy Hat Creek Hospital Comment on above:Performed By: #### ISAIAS ####[address] [place] [address] Opiate(s), UrNegativeNormalNEGMercy Hat Creek HospitalComment on above:Performed By: #### ISAIAS ####[address] [place] [address] Oxycodone, UrineNegativeNormalNEGMercy Hat Creek HospitalComment on above:Performed By: #### ISAIAS ####[address] [place] [address] Phencyclidine, Ur NegativeNormalNEGMercy Hat Creek HospitalComment on above:Performed By: #### ISAIAS ####[address] [place] [address] Propoxyphene,UrineNegativeNormalNEGMercy Hat Creek HospitalComment on above: Performed By: #### ISAIAS ####[address] [place] [phone] antidepressants Screen Ql (U)NegativeNormalNEGMerMarion Hospital HospitalComment on above:Result Comment: Drug screen results are to be used for medical purposes only. All positive results are unconfirmed. Testing for employment or legal uses should be sent to a reference laboratory for co nfirmation.Performed By: #### ISAIAS ####[address] [place] [address] Interpretive InfoNOT REPORTEDNormalMercy Hat Creek HospitalComment on above:Performed By: #### ISAIAS ####[address] [place] [address] MDMA, UrineNOT REPORTEDNormalNEGMerMarion Hospital HospitalComment on above:Performed By: #### ISAIAS ####[address] [place] [address] FFP, Transfuseon 84-93-4156HKO, TransfuseArm Band Number [id number] Unit Number [id number] Blood Component Type FRESH PLASMA Unit Division 00 Status of Unit TRANSFUSED Transfusion Status OK TO TRANSFUSE Unit Number [id number] Blood Component Type FRESH PLASMA Unit Division 00 Status of Unit TRANSFUSED Transfusion Status OK TO TRANSFUSE Unit Number [id number] Blood Component Type FRESH PLASMA Unit Division 00 Status of Unit TRANSFUSED Transfusion Status OK TO TRANSFUSENormal [facility] HospitalComment on above:Performed By: #### PRTYS ####[address] , [place] [phone], TransfuseArm Band Number [id number] Unit Number [id number] Blood Component Type FFP Unit Division 00 Status ofUnit TRANSFUSED Transfusion Status OK TO TRANSFUSENormalMercer County Community HospitalComment on above:Performed By: #### PRTYS ####[address] [place] [address] History and Physicalon 12-26-2017 HIM IP Note OR TranscriptionNormalMercy Hat Creek HospitalPLT, Immature Fract.on 55-44-3321Jbnwnksz, Fluoresc.99 k/oDJfx626-457CwjvcMercer County Community HospitalComment on above:Performed By: #### FT4, TSH ####[address] [place] [address] #### PRENAT ####[place] [address] [place] [phone] [place] [address] PLT, Immature Fract.16.7 %High1.1-10.3MUniversity Hospitals Parma Medical Center Comment on above:Performed By: #### FT4, TSH ####[address] [place] [address] #### PRENAT ####[place] [address] [place] [phone] [place] [address] Plan of Careon 47-25-3331MVY IP Note OR TranscriptionNormalMerMarion Hospital HospitalPlatelets,Transfuseon 12-26-2017 Platelets,TransfuseArm Band Number [id number] Unit Number [id number] Blood Component Type Leukocyte Reduced Irradiated Plateletpheresis Unit Division 00 Status of Unit TRANSFUSED Transfusion Status OK TO TRANSFUSENormalMercer County Community HospitalComment on above:Performed By: #### PRTYS ####[address] [place], [place] [address] Progress Noteon 80-35-3999AFR IP Note OR TranscriptionNormalMercy Hat Creek HospitalHIM IP Note OR Technology Methodology Consultant NormalMercy Hat Creek HospitalHIM IP Note OR TranscriptionNormalMercy Hat Creek HospitalHIM IP Note OR TranscriptionNormalMercy Hat Creek HospitalHIM IP Note OR TranscriptionNormalMercy Hat Creek HospitalHIM IP Note OR TranscriptionNormalMercy Hat Creek HospitalHIM IP Note OR TranscriptionNormalMercy Hat Creek HospitalHIM IP Note OR TranscriptionNormalMercy Hat Creek HospitalHIM IP Note OR Technology Methodology Consultant NormalMercy Hat Creek HospitalHIM IP Note OR TranscriptionNormalMercy Hat Creek HospitalHIM IP Note OR TranscriptionNormalMercy Hat Creek HospitalHIM IP Note OR TranscriptionNormalMercy Hat Creek HospitalHIM IP Note OR TranscriptionNormalMercy Hat Creek HospitalHIM IP Note OR TranscriptionNormalMercy Hat Creek HospitalHIM IP Note OR TranscriptionNormalMercy Hat Creek HospitalHIM IP Note OR Technology Methodology Consultant NormalMercy Hat Creek HospitalHIM IP Note OR TranscriptionNormalMercy Hat Creek HospitalHIM IP Note OR TranscriptionNormalMercy Hat Creek HospitalHIM IP Note OR TranscriptionNormalMercy Hat Creek HospitalSurgical Pathologyon 83-65-3331Pounfjmi Pathology(NOTE)[id number] LABORATORIESCONSULTING PATHOLOGISTS CHRISTIANACAREANATOMIC [id number] [place], [place] [address] Fax: SURGICAL PATHOLOGY CONSULTATIONPatient Name: ISAAC BOYLEKind[facility] Rec: [id number] Number: [id number]: 12/26/2017Received: 12/27/2017Reported: 12/28/2017 13:33-- Diagnosis --Placenta, third trimester: Umbilical cord and membranes, free of inflammation.Plate, no histologic abnormality. Leo CorleyElectronically Signed Out rdd/12/28/2017Clinical InformationPre-op Diagnosis: POST- HEMORRHAGE Operative Findings: PLACENTASource of Specimen1: PLACENTAGross Description ISAAC BOYLE, UNDESIGNATED Placenta with attached membranes andumbilical cord.UMBILICAL CORD Length: 32.0 cm Diameter: 1.0 cmTrue knots: NoN umber of vessels: 3Spiraling: NormalInsertion into surface: ParacentralMEMBRANESColor: [place]-robles, mostly translucent, with a circummarginateinsertionMeconium staining: NoFETAL SURFACEColor: Purple-radford, with a normal array of surface vesselsSubchorionic fibrin: Patchy and marginal and involvesapproximately 50% of the discMATERNAL SURFACECotyledons: - Fragmented/torn: Yes, approximately 15%, and completenesscannot be determined- Focal lesions: NoPlacental size: 16.5 x 15.5 x 3.0 cmShape: OvoidWeight: 402 gramsNumber of cassettes: 4cs as Microscopic Description Umbilical cord: Unremarkable Membranes: UnremarkableMeconium staining: NoInfarcts: NoIntervillous thrombi: NoSubchorionic fibrin: Not significantly increasedVillous maturation: AppropriateNucleated erythrocytes in villous capillaries: Not increasedOther: Few microcalcificationsNoMemorial HospitalComment on above:Performed By: #### PPPVS ####[address] [id number] Type + Crossmatchon [id number] + CrossmatchSample Expiration 12/29/2017 Arm Band Number [id number] ABO/Rh(D) A POSITIVE Antibody Screen NEGATIVE Unit Number [id number] Blood Component Type Leukocyte Reduced Red Cell Unit Division 00 Status of Unit TRANSFUSED Transfusion Status OK TO TRANSFUSE Crossmatch Result COMPATIBLE Unit Number [id number] Blood Component Type Leukocyte Reduced Red Cell Unit Division 00 Status of Unit TRANSFUSED Transfusion Status OK TO TRANSFUSE Crossmatch Result COMPATIBLE Unit Number [id number] Blood Component Type Leukocyte Reduced Red Cell Unit Division 00 Status of Unit TRANSFUSED Transfusion Status OK TO TRANSFUSE Crossmatch Result COMPATIBLE Unit Number [id number] Blood Component Type Leukocyte Reduced Red Cell Unit Division 00 Status of Unit TRANSFUSED Transfusion Status OK TO TRANSFUSE Crossmatch Result COMPATIBLENoMemorial HospitalComment on above:Performed By: #### PRTYS ####[address] [place] [address] US OB DETAIL ANATOMY SINGLE OR FIRST GESTATIONon [id number] OB DETAIL ANATOMY SINGLE OR FIRST GESTATIONREPORT: Ultrasound anatomyTECHNIQUE: High-resolution sonographic evaluation of the fetus performed transabdominally.INDICATION: Supervision of normal pregnancyCLINICAL HISTORY: Patient is a 27-year-old 19 weeks 1 day gestational age clinically. Clinical due date is 01/10/2018.FINDINGS: Single living intrauterine gestation identified. There is active movement and cardiac activity seen. Heart rate is 150 beats per minute. Fetus is in a breech presentation. There is a grade 2 posterior placenta. Cervix is normal in length. The internal cervical os is closed. No endocervical fluid. Amniotic fluid is within normal limits. ANATOMY:Head: Normocephalic, no hydrocephalus, cerebellumand cisterna magna are normalHeart: Four-chamber, normal situsStomach: Fluid-filled, on the leftKidneys: Present bilaterally, no hydronephrosisBladder: Fluid filled and midline Abdomen: Normal bowel echogenicitySpine: No evidence of spinal dysraphismExtremities: Normal k7Agpbzkyfn cord: 3 vessel, normal insertionBIOMETRY:BPD: 4.24 cm (normal)HC: 15.37 cm (normal) OFD: 5.50 cmAC: 14.50 cm (normal) FL: 2.80 cm(normal) EFW: 276 g (10 ounces)EFW percentile: 45%CI: 77.18 cm (normal)FL./BPD: 65.90 cm (normal)HC/AC: 1.06 cm (low)FL/AC: 19.28 cm (normal)FL/HC: 18.20 cm (normal)AUA: 18 weeks 6 daysEDD ultrasound: 01/12/20181. Normal single living intrauterine gestation2. anatomy within normal limits3. biometry as above.Final report electronically signed by Nini Conklin on 08/17/2017 1:28 PMInterpreted by:LITO Degrootigned by:Nini Conklin MD18Final resultNormalMercy Backus HospitalUS OB 14 PLUS WEEKS SINGLE OR FIRST GESTATIONon [id number] OB 14 PLUS WEEKS SINGLE OR FIRST GESTATION REPORT: Ultrasound fetus greater than 14 weeks TECHNIQUE: High-resolution sonographic evaluation ofthe fetus performed transabdominally.INDICATION: Intrauterine , incidentalCLINICAL HISTORY: Patient is a 27-year-old at 15 weeks 4 days gestational age clinically. Clinical due date is 01/10/2018.FINDINGS: Single living intrauterine gestation identified. There is active movementand cardiac activity seen. Heart rate is 156 beats per minute. Fetus is in a cephalic presentation.There is a grade 1 posterior placenta. Cervix is normal in length. The internal cervical os is closed. No endocervical fluid. Amniotic fluid is within normal limits. The nasal bone is well-visualizedon the profile view. No discrete abnormality of the upper spine or skull base. BIOMETRY:BPD: 3.23 cm (normal) HC: 11.96 cm (normal) OFD: 4.12 cm AC: 10.04 cm (normal) FL: 1.67 cm (normal) EFW: 128 g (5 ounces) EFW percentile: 39% CI: 78.20 cm (normal)FL./BPD: 51.77 cm (normal)HC/AC: 1.19 cm (normal)FL/AC: 16.63 cm (normal)FL/HC: 13.96 cm (normal)AUA: 15 weeks 6 days KATLIN ultrasound: 01/08/2018 1. Normal single living intrauterine gestation2. biometry within normal limits.3. The nasal bone is identified and the skull base/upper cervical spine is grossly normalFinal report electronically signed by Nini Conklin on 07/23/2017 5:33 PMInterpreted by:LITO Degrootigned by:Leo Degroot /inal resultNormPomerene HospitalPrenatal Profileon [id number] B Surf AgNONREACTIVENormalNRMercer County Community HospitalComment on above:Result Comment: [place] [address] Performed By: #### FT4, TSH ####[address] [place], [facility]83 #### PRENAT ####[place] [phone] [place] [id number] Rubella Ab, DnF125.1 IU/mLNormalMercer County Community HospitalComment on above:Result Comment: REFERENCE RANGE:<5.0 NON-REACTIVE (non-immune)5.0 TO 9.9 EQUIVOCAL>=10.0 REACTIVE (immune)Performed at [address] [address] ([phone] By: #### FT4, TSH ####[address] [place] [address] #### PRENAT ####[address] [place] [address] T.pallidum Ab ScreenNONREACTIVE NormalNRMercer County Community HospitalComment on above:Result Comment: T. pallidum antibodies are not detected.There is no serological evidence of infection with T. pallidum (early primary syphilis cannot be excluded). Retest in 2-4 weeks if syphilis is clinically suspect.Performed at [address] [address] Performed By: #### FT4, TSH ####[address] [place] [address] #### PRENAT ####[address] [phone] [place] [address] Abs. Basophil0.10 k/uLNormal0.0-0.2 [facility] County Community HospitalComment on above:Result Comment: Performed at [address] [place] [address] Performed By: #### FT4, TSH ####[address] [place] [address] #### PRENAT ####[address] [phone] [place] [address] Abs.Neutrophil (Seg)6.20 k/uLNormal1.8-7.7Mercer County Community HospitalComment on above:Result Comment: Performed at [address] [place] [address] Performed By: #### FT4, TSH ####[address] [place] [address] #### PRENAT ####[address] [phone] [place] [address] Basophils/100 WBC Auto (Bld)1 %Normal0-2MUniversity Hospitals Parma Medical Center Comment on above:Result Comment: Performed at [address] [place] [id number] Performed By: #### FT4, TSH ####[address] [place] [address] #### PRENAT ####[address] [phone] [address] , [place] [address] Eosinophils Auto #/vol (Bld)0.30 10*3/uLNormal0.0-0.4Mercer County Community HospitalComment on above:Result Comment: Performed at [address] [place] [address] Performed By: #### FT4, TSH ####[address] [place] [address] #### PRENAT ####[address] [phone] [place] [address] Eosinophils/100 WBC Auto (Bld)3 % Normal0-8Mer[facility] County Community HospitalComment on above:Result Comment: Performed at [address] [place] [address] Performed By: #### FT4, TSH ####[address] [place] [address] #### PRENAT ####[address] [phone] [place] [address] Erythrocyte distribution width Auto Ratio (RBC)14.9 %Normal 12.1-15.2MUniversity Hospitals Parma Medical CenterComment on above:Result Comment: Performed at [address] [place] [address] Performed By: #### FT4, TSH ####[address] [place] [address] #### PRENAT ####[address] [phone] [address] , [place] [address] Hematocrit Auto Volume Fraction (Bld)43.7 %Jsyxsy63-57VlbjoMercer County Community HospitalComment on above:Result Comment: Performed at [address] [place] [id number] Performed By: #### FT4, TSH ####[address] [place] [address] #### PRENAT ####[address] [phone] [place] [address] Hemoglobin mass conc (Bld)14.1 g/jEDgwogi68.0-16.0Mercer County Community HospitalComment on above:Result Comment: Performed at [address] [place] [address] Performed By: #### FT4, TSH ####[address] [place] [address] #### PRENAT ####[address] [place] [phone] [place] [address] Lymphocytes Auto #/vol (Bld)2.80 10*3/uLNormal1.0-4.8Mer[facility] County Community HospitalComment on above:Result Comment: Performed at [address] [place] [address] Performed By: #### FT4, TSH ####[address] [place] [address] #### PRENAT ####[address] [phone] [place] [address] Lymphocytes/100 WBC Auto (Bld)28 %Ygqeve70-85MieuoMercer County Community HospitalComment on above:Result Comment: Performed at [address] [place] [address] Performed By: #### FT4, TSH ####[address] [place] [address] #### PRENAT ####[address] [phone] [place] [address] MCH Auto Entitic mass (RBC)26.9 fbElhbzo19-35McguuMercer County Community HospitalComment on above:Result Comment: Performed at [address] [place] [address] Performed By: #### FT4, TSH ####[address] [place] [address] #### PRENAT ####[address] [phone] [place] [address] MCHC Auto mass conc (RBC)32.3 g/fIRweytl61-55TscnyMercer County Community HospitalComment on above:Result Comment: Performed at [address] [place] [address] Performed By: #### FT4, TSH ####[address] , [facility]83 #### PRENAT ####[address] [phone] [address] , [place] [address] MCV Auto Entitic volume (RBC)83.3 dNEzpopz52-158SgovlMercer County Community HospitalComment on above:Result Comment: Performed at [address] [place] [address] Performed By: #### FT4, TSH ####[address] [place] [address] #### PRENAT ####[address] [phone] [place] [address] Monocytes Auto #/vol (Bld)0.60 10*3/uLNormal0.0-1.0Mercer County Community HospitalComment on above:Result Comment: Performed at [address] [place] [id number] Performed By: #### FT4, TSH ####[address] [place] [address] #### PRENAT ####[address] [phone] [place] [address] Monocytes/100 WBC Auto (Bld)6 %Normal0-12[facility] Comment on above:Result Comment: Performed at [address] [place] [address] Performed By: #### FT4, TSH ####[address] [place] [address] #### PRENAT ####[address] [phone] [address] , [facility]83 Neutrophil (Seg) 62 %Fdanwk46-39YlksmMercer County Community HospitalComment on above:Result Comment: Performed at [address] [place] [address] Performed By: #### FT4, TSH ####[address] [place] [address] #### PRENAT ####[address] [phone] [place] [address] Platelet mean volume Auto Entitic volume (Bld)11.1 fLNormal 6.0-12.0Mercer County Community HospitalComment on above:Result Comment: Performed at [address] [place] [address] Performed By: #### FT4, TSH ####[address] [place] [address] #### PRENAT ####[place] [address] [place] [phone] [place] [address] Platelets Auto #/vol (Bld)216 10*3/tSMxrvac712-442SszdhMercer County Community HospitalComment on above:Result Comment: Performed at [address] [place] [address] Performed By: #### FT4, TSH ####[address] [place] [address] #### PRENAT ####[address] [phone] [address] , [facility]83 RBC Auto #/vol (Bld)5.25 10*6/uLHigh4.0-5.2MUniversity Hospitals Parma Medical CenterComment on above:Result Comment: Performed at [address] [place] [address] Performed By: #### FT4, TSH ####[address] [place] [address] #### PRENAT ####[address] , [place] [address] WBC Auto #/vol (Bld)10.0 10*3/uLNormal3.5-11.0Mercer County Community HospitalComment on above:Result Comment: Performed at [address] [place] [address] Performed By: #### FT4, TSH ####[address] [place] [address] #### PRENAT ####[address] [phone] [place] [address] Abs.Imm.GranulocyteNOT REPORTEDNormal0.00-0.30Mer[facility] County Community HospitalComment on above:Performed By: #### FT4, TSH ####[address] [place] [address] #### PRENAT ####[address] [phone] [place] [address] Auto Diff PerformedNOT REPORTED NormalKindred Healthcare HospitalComment on above:Performed By: #### FT4, TSH ####[address] [place] [address] #### PRENAT ####[address] [phone] [place] [address] Immature granulocytes #/vol (Bld)NOT NJCAEZLMXxhyqm2Kvqce [place] HospitalComment on above:Performed By: #### FT4, TSH ####[address] [place] [address] #### PRENAT ####[address] [phone] [place] [address] Platelets Auto #/vol (Bld)NOT REPORTEDNormalKindred Healthcare HospitalComment on above:Performed By: #### FT4, TSH ####[address] [place] [address] #### PRENAT ####[address] [phone] [place] [address] RBC morphology finding Nom (Bld)NOT REPORTEDNormalMercer County Community HospitalComment on above:Performed By: #### FT4, TSH ####[address] [place] [address] #### PRENAT ####[place] [address] [place] [phone] [place] [address] WBC MorphologyNOT REPORTEDNoMemorial HospitalComment on above:Performed By: #### FT4, TSH ####[address] [place] [address] #### PRENAT ####[address] [phone] [place] [address] Prenatal Type + Scrnon 77-96-3964Qmiobstn Type + ScrnABO/Rh(D) A POSITIVE Antibody Screen NEGATIVE Performed at [address] [place] [address] NormalKindred Healthcare HospitalComment on above:Performed By: #### PRTYS ####[address] [facility]83 Thyroid Stim. Horm.on 44-90-2353Agvwpjaeftx Qn3.26 m[IU]/LNormal0.30-5.00Mer[facility] County Community HospitalComment on above:Result Comment: Performed at [address] [place] [address] Performed By: #### FT4, TSH ####[address] [place] [address] #### PRENAT ####[address] [phone] [address] [place] [phone], Freeon 29-71-6015Awrbxofiw, Free1.23 ng/dLNormal 0.93-1.70Mer[facility] County Community HospitalComment on above:Result Comment: Performed at [address] [place] [address] [phone] Performed By: #### FT4, TSH ####[address] , [place] 4903859(134 #### PRENAT ####[place] [address] [place] [phone] [place] [phone] Vital Signs Date TimeVital SignValuePerforming ZvpkvpcwvEjscopem88-22-3451 10:44-0400Body chelms498.6 cmTimothy Lebanon DO Work Phone: [phone] [place], [place] [address]Ywxhpjpjlv43-42-8318 10:44-0400Body mass index (BMI) [Ratio]35.67 kg/y3Ryhvmau Lebanon DO Work Phone: 1(419)[address] [place], [place] 4614009-04-2025 10:44-0400Body temperature 98.4 [degF]Lynn Lebanon DO Work Phone: 1(419)[facility] [place], [place] [address]Ddcpzrlacw76-43-6381 10:44-0400Body .25 kgTimothy Lebanon DO Work Phone: [phone])[address] [place], [place] 4614009-04-2025 10:44-0400Diastolic blood hphcareu42 mm[Hg]Lynn Lebanon DO Work Phone: 1(419)[address] [place], [place] 4614009-04-2025 10:44-0400Heart rate90 /min Lynn Lebanon DO Work Phone: 1(419)[address] [place], [place] 4614009-04-2025 10:44-9736FmI9% (BldA) [Mass fraction]100 %Lynn Lebanon DO Work Phone: 1419)[address] [place], [place] 4614009-04-2025 10:44-0400Systolic blood zmsrsapm897 mm[Hg]Lynn Lebanon DO Work Phone: 1(419)788-[address] [place], [place] [address]Zzismjirsx88-13-4864 08:50-0400Body rtelln550.6 cmTimothy Lebanon DO Work Phone: [phone] [place], [place] [address]Wyakxbfzud91-51-1540 08:50-0400Body mass index (BMI) [Ratio]34.7 kg/o6Czqxslb Lebanon DO Work Phone: [facility] CenterSqmrugbdqp76-54-9413 08:50-0400Body temperature 98.4 [degF]Lynn Lebanon DO Work Phone: [facility] CenterHmgalzrunh80-55-7146 08:50-0400Body ffeibg15.52 kgTimothy Lebanon DO Work Phone: [facility] CenterVzpaoeuatc59-85-7775 08:50-0400Diastolic blood lhigzfla14 mm[Hg]Lynn Lebanon DO Work Phone: 1(419)650-[address] [place], [place] [address]Qfoxgfkvbj13-95-3911 08:50-0400Heart rate90 /min Lynn Lebanon DO Work Phone: 1(419)[facility] [place], [place] [address]Lbvfgdccgq93-51-4316 08:50-9518IeN2% (BldA) [Mass fraction]100 %Lynn Lebanon DO Work Phone: [facility] CenterPiwbgkulip27-87-8251 08:50-0400Systolic blood pumzeatv170 mm[Hg]Lynn Lebanon DO Work Phone: 1(419)276-[address] [place], [place] [address]Nyalzhzirj27-00-5562 08:06-0500Body cslbwy797.6 cmTimothy Lebanon DO Work Phone: 1(419)099-[address] [place], [place] [address]Jojmhksrnk20-58-1444 08:06-0500Body mass index (BMI) [Ratio]35.83 kg/c3Qyyfpyz Lebanon DO Work Phone: 1(419)764-[address] [place], [place] [address]Elajfrbrps78-45-2688 08:06-0500Body temperature 98.2 [degF]Lynn Lebanon DO Work Phone: 1([phone] [place], [place] [address]Gyjeekkvmo29-39-8146 08:06-0500Body jatvaj145.7 kgTimothy Lebanon DO Work Phone: 1(419)994-[address] [place], [place] [address]Atkmbeskzg68-42-6992 08:06-0500Diastolic blood ejoqrpof60 mm[Hg]Lynn Lebanon DO Work Phone: 1(419)108-[address] [place], [place] [address]Lbbivanfoc41-82-5968 08:06-0500Heart rate82 /min Lynn Lebanon DO Work Phone: 1(419)[facility] [place], [place] [address]Esmncteynm16-28-8897 08:06-6760XnQ1% (BldA) [Mass fraction]99 %Lynn Lebanon DO Work Phone: 1(419)314-[address] [place], [place] [address]Ipzqpisgvy25-19-7147 08:06-0500Systolic blood mm[Hg]Lynn Lebanon DO Work Phone: [facility] CenterTrmjphnuok43-47-0899 08:20-0500Body .6 cmTimothy Lebanon DO Work Phone: 1(419)854-[address] [place], [place] [address]Puyumcscpp14-50-3864 08:20-0500Body mass index (BMI) [Ratio]37.77 kg/y7Zyfzzwx Lebanon DO Work Phone: 1(419)620-[address] [place], [place] [address]Yvnhjlmxbd61-67-5186 08:20-0500Body temperature 98.1 [degF]Lynn Lebanon DO Work Phone: 1(419)[facility] [place], [place] [address]Vcwkatjbil97-35-2924 08:20-0500Body .14 kgTimothy Lebanon DO Work Phone: 1(419)[facility] [place], [place] [address]Wmtzqhlimw43-03-5974 08:20-0500Diastolic blood uagazkdp39 mm[Hg]Lynn Lebanon DO Work Phone: [facility] CenterIirgjhedky49-26-7917 08:20-0500Heart rate94 /min Lynn Lebanon DO Work Phone: [facility] CenterXkgfnfkamr98-26-3042 08:20-3378FgE7% (BldA) [Mass fraction]98 %Lynn Lebanon DO Work Phone: 1(419)335-[address] [place], [place] [address]Gwhowrbokg82-47-8457 08:20-0500Systolic blood rphnfiyr624 mm[Hg]Lynn Lebanon DO Work Phone: 1(419)341-[address] [place], [place] [address]Dgyzsqgorm33-19-6261 08:24-0400Body .6 cmTimothy Lebanon DO Work Phone: 1(419)604-[address] [place], [place] [address]Htntypdnhd22-20-6804 08:24-0400Body mass index (BMI) [Ratio]38.67 kg/w0Upbuyqh Lebanon DO Work Phone: 1(419)492-[address] [place], [place] [address]Isbybjuizx39-26-8751 08:24-0400Body temperature 97.11 [degF]Lynn Lebanon DO Work Phone: 1(419)625-[address] [place], [place] [address]Qnlijqnojp33-16-6495 08:24-0400Body kejush897.68 kgTimothy Lebanon DO Work Phone: [facility] CenterEzqprqvvdq33-36-1652 08:24-0400Diastolic blood mm[Hg]Lynn Lebanon DO Work Phone: [facility] CenterBrpftugfjk96-65-1300 08:24-0400Heart rate96 /min Lynn Lebanon DO Work Phone: 1(419)461-[address] [place] [address]-01-2024 08:24-0943UtH0% (BldA) [Mass fraction]99 %Lynn Lebanon DO Work Phone: [place] [address]Qamvjvooap02-03-5134 08:24-0400Systolic blood lopsilhq984 mm[Hg]Lynn Lebanon DO Work Phone: [facility] CenterMujpknsabz09-01-2105 10:06-0400Body mass index (BMI) [Ratio]40.21 kg/m2Sonya PEREZ Work Phone: [facility] CenterFggxvvjaud71-99-5573 10:06-0400Body ssugul912 kg Sonya PEREZ Work Phone: [facility] CenterXnezynfobs39-20-2876 10:06-0400Diastolic blood wsysqgaq45 mm[Hg]Sonya PEREZ Work Phone: [facility] CenterHhyqjfwsob24-72-1481 10:06-0400Systolic blood ndcyoago316 mm[Hg]Sonya PEREZ Work Phone: [facility] CenterQjkrnxmjuk04-88-8207 08:03-0400Body .6 cmTimothy Lebanon DO Work Phone: [facility] CenterVjhmhbvtgj56-89-5951 08:03-0400Body mass index (BMI) [Ratio]40.22 kg/l9Rabppgv Lebanon DO Work Phone: [place] [address]Oblalpmpes96-64-7955 08:03-0400Body temperature 96.8 [degF]Lynn Lebanon DO Work Phone: [place] [address]Cfpoxtyzig54-93-8084 08:03-0400Body opwfjl860.04 kgTimothy Lebanon DO Work Phone: [facility] CenterZkzbnafufn15-77-5843 08:03-0400Diastolic blood mm[Hg]Lynn Lebanon DO Work Phone: 1(419)808-[address] [place], [place] [address]Nqjdspjkvz63-14-7278 08:03-0400Heart rate90 /min Lynn Lebanon DO Work Phone: 1(419)[facility] [place], [place] [address]Jeehdaxfdh69-14-7876 08:03-8295OnL5% (BldA) [Mass fraction]98 %Lynn Lebanon DO Work Phone: 1(419)043-[address] [place], [place] [address]Nnkeovprco02-53-7827 08:03-0400Systolic blood qobdogvn745 mm[Hg]Lynn Lebanon DO Work Phone: 1(419)[facility] [place], [place] [address]Ughzhoodas19-35-1312 08:45-0400Body lobhhe601.6 cmTimothy Lebanon DO Work Phone: 1(419)[address] [place], [place] 4614009-25-2024 08:45-0400Body mass index (BMI) [Ratio]40.67 kg/z7Sftcfzx Lebanon DO Work Phone: 1(419)572-[address] [place], [place] [address]Jxfqqhnuxp72-69-0326 08:45-0400Body temperature 98.6 [degF]Lynn Lebanon DO Work Phone: 1(419)[facility] [place], [place] [address]Scqnvdvsip93-13-1779 08:45-0400Body enqzxr334.31 kgTimothy Lebanon DO Work Phone: 1(419)799-[address] [place], [place] [address]Wwefhemhqd54-31-7956 08:45-0400Diastolic blood rjasnckf41 mm[Hg]Lynn Lebanon DO Work Phone: 1(419)848-[address] [place], [place] [address]Uqgcwetvko69-57-9558 08:45-0400Heart vqzq632 /min Lynn Lebanon DO Work Phone: 1(419)407-[address] [place], [place] [address]Zifhshgmrm75-41-7562 08:45-9932WdJ1% (BldA) [Mass fraction]100 %Lynn Lebanon DO Work Phone: 1(419)[facility] [place], [place] [address]Ztemaqqwbt42-00-8354 08:45-0400Systolic blood mm[Hg]Lynn Lebanon DO Work Phone: 1(419)[address] [place], [place] 4614007-20-2024 12:00-0400Body faersv047.64 cm[facility] 12:00-0400Body mass index (BMI) [Ratio]39.9 kg/w0YhgpqazkqMansfield Hospital07-20-2024 12:00-0400Body mcxhetclawb76.8 [degF][facility]07-20-2024 12:00-0400Body alebsg225.03 kgMansfield Hospital07-20-2024 12:00-0400Heart rate 88 /[facility]07-20-2024 12:00-0400Respiratory rate18 /[facility]07-20-2024 12:00-3201IkG2% (BldA) [Mass fraction]98 %[facility]03-23-2023 16:15-0400Body height 167.64 cmAscar Lim Other [facility] Other 03-23-2023 16:15-0400Body mass index (BMI) [Ratio]37.6 kg/o8LxqpsLiliam Lim Other [employer] Other 03-23-2023 16:15-0400Body taufoetgsqc61.5 [degF]Liliam Lim Other [facility] Other 03-23-2023 16:15-0400Body kcexmq465.69 kgLiliam Lim Other [employer] Other 03-23-2023 16:15-0400Diastolic blood ofoeawyg01 mm[Hg] Liliam Lim Other [employer] Other 03-23-2023 16:15-6569MsF4% (BldA) [Mass fraction]98 % Liliam Lim Other [employer] Other 03-23-2023 16:15-0400Systolic blood vypnsinx049 mm[Hg] Liliam Lim Other [facility] Other 12-27-2022 10:35-0500Body .64 cmSanne Aleman Other [facility] Other 12-27-2022 10:35-0500Body mass index (BMI) [Ratio] 35.51 kg/d7Vpwgcowutdilip Aleman Other [facility] Other 12-27-2022 10:35-0500Body bdxyvesaqjy58.4 [degF] Dottie Aleman Other [facility] Other 12-27-2022 10:35-0500Body yzuryi79.79 kgStoz Aleman Other [facility] Other 12-27-2022 10:35-0500Diastolic blood pqhmxfua60 mm[Hg] Dottie Aleman Other [facility] Other 12-27-2022 10:35-0500Respiratory rate18 /minSanne Aleman Other [employer] Other 12-27-2022 10:35-1403NvA9% (BldA) [Mass fraction]99 % Dottie Aleman Other [employer] Other 12-27-2022 10:35-0500Systolic blood rawjjmhb094 mm[Hg] Dottie Aleman Other [employer] Other 04-29-2022 16:45-0400Body iirhjk297.64 cmPeggy Andrade Other noRedbeacon Other 04-29-2022 16:45-0400Body mass index (BMI) [Ratio] 39.86 kg/u7Rpvvk Andrade Other [employer] Other 04-29-2022 16:45-0400Body vcmynwcdgvf63.1 [degF]Daphnie Andrade Other [employer] Other 04-29-2022 16:45-0400Body bynmkn428.04 kgPeggy Andrade Other [employer] Other 04-29-2022 16:45-0400Diastolic blood oyottkqf49 mm[Hg] Daphnie Andrade Other [employer] Other 04-29-2022 16:45-0400Respiratory rate18 /minPeggy Andrade Other [employer] Other 04-29-2022 16:45-6069KmF7% (BldA) [Mass fraction]99 % Daphnie Andrade Other [employer] Other 04-29-2022 16:45-0400Systolic blood uxzwyros659 mm[Hg] Daphnie Andrade Other [employer] Other Encounters Encounter DateEncounter TypeCare ProviderFacilityStart: 03-22-2025 End: 49-51-9654Gdgouj Fred Cain [facility] Work Phone: NO [place] [facility] HealthStart: 03-22-2025 End: 79-85-0227Gdnoob Fred Cain LPCC Work Phone: noms [facility] HealthStart: 03-22-2025 End: 73-13-2604Bylscptb SupportJacqueline Duc Ant LPCC Work Phone: noms [place] [facility] HealthComment on above:ESTEFANY (generalized anxiety disorder) ; Moderate episode of recurrent major depressive disorder (HCC)Start: 03-07-2025 End: 88-04-8154Rjeare flowsheetJacqueline K Ant LPCC Work Phone: noms [facility] [facility] HealthStart: 03-07-2025 End: 86-67-8341Zdrbnk flowsheetJacqueline K Ant LPCC Work Phone: noms [place] [facility] HealthStart: 03-07-2025 End: 98-53-6576Ejdgqvfu SupportJacqueline K Ant LPCC Work Phone: noms [place] [facility] HealthComment on above:ESTEFANY (generalized anxiety disorder) ; Moderate episode of recurrent major depressive disorder (HCC)Start: 02-28-2025 End: 39-33-1975Nghczr flowsheetJacqueline K Ant LPCC Work Phone: noms [facility] [facility] HealthStart: 02-28-2025 End: 78-93-5460Iudmlt flowsheetJacqueline K Ant LPCC Work Phone: noms [place] [facility] HealthStart: 02-28-2025 End: 84-65-0299Yvmdoekn SupportJacqueline K Ant LPCC Work Phone: noms [place] [facility] HealthComment on above:ESTEFANY (generalized anxiety disorder) ; Moderate episode of recurrent major depressive disorder (HCC)Start: 02-21-2025 End: 95-00-7146Fefpjx flowsheetJacqueline K Ant LPCC Work Phone: noms [place] [facility] HealthStart: 02-21-2025 End: 02-64-3537Bloubh flowsheetJacqueline K Ant LPCC Work Phone: noms [place] [facility] HealthStart: 02-21-2025 End: 48-65-1327Mgbetglq SupportJacqueline K Ant LPCC Work Phone: noms [place] [facility] HealthComment on above:ESTEFANY (generalized anxiety disorder) ; Moderate episode of recurrent major depressive disorder (HCC)Start: 02-07-2025 End: 70-38-8238Lecwvg flowsheetJacqueline Duc Ant [facility] Work Phone: noms [place] [facility] HealthStart: 02-07-2025 End: 71-76-7847Uqbzrk flowsheetJacqueline Duc Ant LPCC Work Phone: noms [facility] [facility] HealthStart: 02-07-2025 End: 79-48-3680Uroaaotq SupportJacqueline Duc Ant [facility] Work Phone: noms [place] [facility] HealthComment on above:ESTEFANY (generalized anxiety disorder) ; Moderate episode of recurrent major depressive disorder (HCC)Start: 01-31-2025 End: 72-45-9509Fpvfdo flowsheetJacqueline Duc Ant [facility] Work Phone: noms [place] [facility] HealthStart: 01-31-2025 End: 76-22-8624Quvkbp flowsheetJacqueline Duc Ant LPCC Work Phone: noms [place] [facility] HealthStart: 01-31-2025 End: 71-76-1674Iqnuiwra SupportJacqueline Duc Ant LPCC Work Phone: noms [place] [facility] HealthComment on above:ESTEFANY (generalized anxiety disorder) ; Moderate episode of recurrent major depressive disorder (HCC)Start: 01-18-2025 End: 83-95-8983Ylirts outpatient visit 15 minutesLynn Ppoe DO Work Phone: noms [facility] 230Comment on above: Class 2 obesity due to excess calories without serious comorbidity with body mass index (BMI) of 35.0 to 35.9 in adult (Primary Dx)Start: 01-18-2025 End: 19-25-7493IwyncxWwzmzve L Cutler Work Phone: noms [facility] [facility] 230Comment on above: Class 2 obesity due to excess calories without serious comorbidity with body mass index (BMI) of 35.0 to 35.9 in adultStart: 01-17-2025 End: 39-05-5313Xlnbxp flowsheetJacqueline K Ant LPCC Work Phone: noms [facility] [facility] HealthStart: 01-17-2025 End: 00-75-2552Fmnsnj flowsheetJacqueline K Ant LPCC Work Phone: noms [place] [facility] HealthStart: 01-17-2025 End: 37-66-5220Yjecyfwr SupportJacqueline K Ant LPCC Work Phone: noms [place] [facility] HealthComment on above:ESTEFANY (generalized anxiety disorder) ; Moderate episode of recurrent major depressive disorder (HCC)Start: 01-10-2025 End: 15-82-7525Tlwhde flowsheetJacqueline K Ant LPCC Work Phone: noms [facility] HealthStart: 01-10-2025 End: 93-35-5214Ofjwzh flowsheetJacqueline K Ant LPCC Work Phone: noms [facility] HealthStart: 01-10-2025 End: 19-39-2467Edxotvyd SupportJacqueline K Ant LPCC Work Phone: noms [place] [facility] HealthComment on above:ESTEFANY (generalized anxiety disorder) ; Moderate episode of recurrent major depressive disorder (HCC)Start: 12-14-2024 End: 52-79-3338Wsmwgx flowsheetJacqueline K Ant LPCC Work Phone: noms [facility] HealthStart: 12-14-2024 End: 86-99-9276Laxxtn flowsheetJacqueline Duc Ramírezro [facility] Work Phone: noms [facility] HealthStart: 12-14-2024 End: 50-50-0251Bkeiexfo SupportWashington County Hospitalsharyn Cain [facility] Work Phone: noms [place] [facility] HealthComment on above:ESTEFANY (generalized anxiety disorder) ; Moderate episode of recurrent major depressive disorder (HCC)Start: 11-27-2024 End: 46-66-6563YngzmgBufonxs L Lebanon DO Work Phone: [facility] 230Comment on above:Abnormal weight gain Start: 11-09-2024 End: 50-36-4853Pycxjx Level 5 Networkscqueline [employer] Ant [facility] Work Phone: noms SWS BHStart: 11-09-2024 End: 43-54-7556Uwnbbp Level 5 [email or web address] Ant [facility] Work Phone: noms SWS BHStart: 11-09-2024 End: 51-46-8312Nnxrszyu SupportNorfolk State HospitalCustomer BOOM (formerly [employer]) Ant [facility] Work Phone: noms SWS BHComment on above:ESTEFANY (generalized anxiety disorder) ; Moderate episode of recurrent major depressive disorder (HCC)Start: 10-17-2024 End: 02-79-0122Bfutih flowsheetTimothy L Lebanon DO Work Phone: [facility] 230Start: 10-17-2024 End: 97-89-9963Xgfoze flowsheetTimothy L Lebanon DO Work Phone: [facility] 230Start: 10-17-2024 End: 97-03-7594Wremwx outpatient visit 15 minutesTimothy L Lebanon DO Work Phone: [facility] 230Comment on above:Abnormal weight gain Start: 10-17-2024 End: 38-86-1075yrgswbyjxuIBXYOHD L CUTLERNot AvailableStart: 09-19-2024 End: 19-01-1610VaeclsXijllnc L Lebanon DO Work Phone: [facility] 230Comment on above:Abnormal weight gain Start: 09-14-2024 End: 90-85-2116Drgjxq flowsheetJacqueline K Ant LPCC Work Phone: [facility] BHStart: 09-14-2024 End: 58-25-2148Uaxvai flowsheetJacqueline K Ant LPCC Work Phone: [facility] SWS BHStart: 09-14-2024 End: 28-17-6635Jktzdakp SupportJacqueline K Ant LPCC Work Phone: [facility] SWS BHComment on above:ESTEFANY (generalized anxiety disorder) (CMS/HCC); Moderate episode of recurrent major depressive disorder (CMS/HCC)Start: 08-31-2024 End: 55-59-1402Zpxqnt flowsheetJacqueline K Ant LPCC Work Phone: NOM[facility] SWS BHStart: 08-31-2024 End: 34-11-0817Zdghwk flowsheetJacqueline K Ant LPCC Work Phone: NOM[facility] SWS BHStart: 08-31-2024 End: 05-64-2259Urcbmnuw SupportJacqueline K Ant LPCC Work Phone: [facility] SWS BHComment on above:ESTEFANY (generalized anxiety disorder) (CMS/HCC); Moderate episode of recurrent major depressive disorder (CMS/HCC)Start: 08-24-2024 End: 54-15-0835Fjacwm flowsheetJacqueline K Ant LPCC Work Phone: [facility]OM[facility] SWS BHStart: 08-24-2024 End: 65-78-3025Wnuydk flowsheetJacqueline K Ant LPCC Work Phone: [facility] S[facility] BHStart: 08-24-2024 End: 15-92-6243Nkzgpbkr SupportJacqueline K Ant LPCC Work Phone: [facility] SWS BHComment on above:ESTEFANY (generalized anxiety disorder) (CMS/HCC); Moderate episode of recurrent major depressive disorder (CMS/HCC)Start: 08-15-2024 End: 06-15-5729BrvdlrHfnimer L Lebanon DO Work Phone: [phone] 230Comment on above:Abnormal weight gain Start: 08-10-2024 End: 98-13-4615hihwwcmvvuQJYSMXTBTL K SPADARONot AvailableStart: 07-31-2024 End: 67-51-2149Plxuxntw SupportJacqueline K Ant LPCC Work Phone: [facility] SWS BHComment on above:Adjustment disorder, unspecified type (CMS/HCC); ESTEFANY (generalized anxiety disorder) (CMS/HCC); Moderate episode of recurrent major depressive disorder (CMS/HCC)Start: 07-17-2024 End: 98-87-9513Njiszd flowsheetTimothy L Lebanon DO Work Phone: [phone] 230Start: 07-17-2024 End: 41-24-5687Llchpo flowsheetTimothy L Lebanon DO Work Phone: [phone] 230Start: 07-17-2024 End: 42-26-5336Hwvjtw outpatient visit 15 minutesTimothy L Lebanon DO Work Phone: [phone] 230Comment on above:Adjustment disorder, unspecified type (CMS/HCC) (Primary Dx); Abnormal weight gainStart: 07-17-2024 End: 76-69-0318uuolqolrvoXRKUEQT L CUTLERNot AvailableStart: 06-14-2024 End: 10-21-0014TnvcclPdcrdjx L Lebanon DO Work Phone: [phone] 230Comment on above:Abnormal weight gain Start: 05-16-2024 End: 61-77-4341EumbxgNpibwvb L Lebanon DO Work Phone: [phone] 230Comment on above:Abnormal weight gain Start: 04-17-2024 End: 56-26-6882Jjgvir flowsheetTimothy L Lebanon DO Work Phone: [phone] 230Start: 04-17-2024 End: 32-13-0165Phsoik flowsheetTimothy L Lebanon DO Work Phone: [facility] 230Start: 04-17-2024 End: 62-77-0416Langun outpatient visit 15 minutesTimothy L Lebanon DO Work Phone: [facility] 230Comment on above:Abnormal weight gain Start: 04-17-2024 End: 49-80-0730asfzmkunzjUGPROBX L CUTLERNot AvailableStart: 03-17-2024 End: 62-38-2715Vdkpym flowsheetTimothy L Lebanon DO Work Phone: [facility] 230Start: 03-17-2024 End: 59-48-4039Xaugga flowsheetTimothy L Lebanon DO Work Phone: [facility] 230Start: 03-17-2024 End: 81-11-0183Igejgu outpatient visit 15 minutesTimothy L Lebanon DO Work Phone: [facility] 230Comment on above:Abnormal weight gain Start: 02-17-2024 End: 96-23-5732Rzidef flowsMi PEREZ Work Phone: noms BCP OBStart: 02-17-2024 End: 58-68-2747Gaasuv flowsMi PEREZ Work Phone: NOYC BCP OBStart: 02-17-2024 End: 54-36-9809Czgcifiyq Result EncounterSonya PEREZ Work Phone: NOYE External Department UnsolicitedStart: 02-17-2024 End: 07-00-9204Yjnkojz encounter procedureSonya PEREZ Work Phone: [facility] Work Phone: Start: 02-17-2024 End: 12-11-0146Lktbhemh preventive med est patient 18-39 yrsSonya PEREZ Work Phone: NOFV BCP OBComment on above:Well woman exam with routine gynecological exam; Hx of ovarian cyst; Acute left lower quadrant painStart: 02-16-2024 End: 91-83-9984Wgifnj flowsheetTimothy L Lebanon DO Work Phone: [facility] 230Start: 02-16-2024 End: 48-13-8523Ethuum flowsheetTimothy L Lebanon DO Work Phone: [facility] 230Start: 02-16-2024 End: 12-44-7083Pbofiw outpatient visit 25 minutesTimothy L Lebanon DO Work Phone: [facility] 230Comment on above:Abnormal weight gain (Primary Dx); Vitamin D insufficiency; Dyslipidemia (high LDL; low HDL) (CMS/HCC)Start: 02-09-2024 End: 04-36-0389Sqbwnt flowsheetTimothy L Lebanon DO Work Phone: [facility] 230Start: 02-09-2024 End: 84-69-0190Slrtet flowsheetTimothy L Lebanon DO Work Phone: [facility] 230Start: 02-09-2024 End: 48-05-3656Rcucxnu preventive medicine new pt age 18-39yrsTimothy L Lebanon DO Work Phone: [facility] 230Comment on above:Wellness examination (Primary Dx); Screening for heart disease; Abnormal weight gain; Encounter for vitamin deficiency screening; Chronic fatigue; Insulin resistanceStart: 02-09-2024 End: 54-90-2763Esjychx encounter statusTimothy L Lebanon DO Work Phone: [facility] Work Phone: Start: 12-04-2023 End: 50-95-3251sefhptpuuhCkzgykkmxVan [facility]ert [facility] Hospital Work Phone: Start: 12-04-2023 End: 37-43-6893Svbucox encounter procedureAt[facility] Work Phone: Start: 08-09-2022 End: 65-61-3350oeasebfhnmVbynz Keller Other [employer] Other Start: 52-23-0643Rkvzijmtc encounterAmber KellerFPG [facility]gent [facility] Millington RoadStart: 08-06-2022 End: 24-00-4644cntlojirpbQKDCLONGD NO FAMILYFacility:[facility] Hospitaltart: 08-06-2022 End: 56-92-4240Vawvemaz ReferredFNP-C Dottie Aleman Work Phone: [facility] [place] Work Phone: Start: 08-06-2022 End: 78-42-3130aklzykuvcqOFF [facility] Work Phone: Start: 40-34-8329Nfqcpl outpatient visit 25 minutes Liliam KellerFPG [facility]gent Care ClydeStart: 70-39-3266Kpslnn outpatient visit 15 minutesStepdilip AlemanFPG [facility] Care ClydeStart: 05-12-2022 End: 73-70-7042zpatkmzuwgPBX STAFFFacility:[facility] Start: 05-12-2022 End: 57-35-3847rrilxpzdltOBC-C Dottie Aleman Work Phone: [facility] Work Phone: Start: 05-12-2022 End: 95-61-2596Wmmimul encounter procedureFNP-C Dottie Aleman Work Phone: [facility] [place] Work Phone: Start: 05-10-2022 End: 07-18-7064hrctnuctqrSD SAMMY MARKER .Facility:K4Incky: 09-12-2021 End: 65-22-4772jkecrdraqnQbvca Andrade Other [employer] Other Start: 27-82-8439Wfhnpn outpatient visit 15 minutes Daphnie HartFPG Ur[facility] Care ClydeStart: 05-05-2021 End: 53-40-6450uwxlwofobwRefqc Keller Other [employer] Other Start: 72-43-6957Mtkudqjxo encounterAmblynette Mathur [facility] [address]illing[address] RoadStart: 08-12-2018 End: 89-79-8196Llmcynd encounter procedureMIBARBRAALOD SUBRAMANIANFacility:[facility] - ClarkStart: 12-26-2017 End: 40-21-3398Xpvojtslhj and management of inpatientABNER [facility] HospitalStart: 08-17-2017 End: 88-83-7956Gqlwxnx encounterABNER [facility] HospitalStart: 07-23-2017 End: 93-52-1169Ixkzwek encounterABNER [facility] HospitalStart: 05-18-2017 End: 50-32-9672Lmlwqle encounterABNER [facility] Procedures DateProcedureProcedure DetailPerforming ClinicianStart: 90-21-2978ASP,APTIMA HPV,AGE GDLNAmy Annie PEREZ Work Phone: Start: 82-69-8891Nlbleggexbf observation [Identifier] in Cervix by Cyto stainLynn Pope DO Work Phone: Start: 61-75-2495Sllzz X-ray of right hipFNP-C Dottie Aleman Work Phone: Start: 99-19-9606Wlfazwkzedh of sacrococcygeal spine RESTAURANT AND BAR MANAGER-C Dottie Aleman Work Phone: Start: 45-80-5176MPJGGDZCW PATIENTABNER CORDEROStart: 95-70-1525TLBUMQPTDS AND HEMATOCRIT, BLOODABNER CORDEROStart: 90-92-0560WHJMSXOC PATIENTABNER CORDEROStart: 12-68-5021Sxpdz count complete automatedABNER CORDEROStart: 62-53-5832Japgt count complete automatedABNER CORDEROStart: 75-24-9442AOZS GENERALABNER CORDEROStart: 93-24-4218REJEYVYRD PLATELETSABNER CORDEROStart: 01-47-9469VNUVIQCUM FRESH FROZEN PLASMAABNER CORDEROStart: 69-22-3788Xioca count complete automatedABNER CORDEROStart: 67-04-8818ISIQHOFX PLATELET FRACTIONABNER CORDDIAMOND CHILDREN'[facility] MEDICAL CENTERStart: 12-92-3363VEKWYQCTX FRESH FROZEN PLASMA VIOLET CORDEROStart: 67-37-2206CWIOVPJRQPV CORDEROStart: 69-90-1595GZFBGY PHYSICIAN (SPECIFY)VIOLET CORDDIAMOND CHILDREN[facility]S MEDICAL CENTERStart: 52-36-7315XIIJMAH COMMUNICATIONABENCOM[facility] CORDDIAMOND CHILDREN'S MEDICAL CENTERStart: 02-10-1834FZFTF INTERMITTENT PNEUMATIC COMPRESSION DEVICEABNER CORDDIAMOND CHILDREN[facility]S MEDICAL CENTERStart: 91-19-6465LKTTHYPX TO PATHOLOGYABENCOMPASS [facility] CORDDIAMOND CHILDREN'S MEDICAL CENTERStart: 46-92-0536VEPUC SIGNSABENCOMPASS [facility] CORDDIAMOND CHILDREN'S MEDICAL CENTERStart: 08-69-4703WAAK CODEABNER CORDDIAMOND CHILDREN'S MEDICAL CENTERStart: 12-26-2017 TRANSFUSE RED BLOOD CELLSABENCOMPASS [facility] CORDDIAMOND CHILDREN'S MEDICAL CENTERStart: 31-70-7722FIYRLYOLR FRESH FROZEN PLASMAABENCOMPASS HE[facility] CORDDIAMOND CHILDREN'S MEDICAL CENTERStart: 37-56-4590IIPSAEM FRESH FROZEN PLASMAABENCOMPASS [facility] PARSONS Start: 13-45-6595PRIVJGSR PATIENTABENCOMPASS [facility] CORDDIAMOND CHILDREN'S MEDICAL CENTERStart: 31-02-2987IJEHNHG STATUS (DIRECT)VIOLET CORDDIAMOND CHILDREN[facility] MEDICAL CENTERStart: 46-90-0722VHTYYYCJ PATHOLOGYABENCOMPASS [facility] CORDDIAMOND CHILDREN'S MEDICAL CENTERStart: 92-97-8668IIQWCUEPP RED BLOOD CELLSABENCOMPASS [facility] CORDDIAMOND CHILDREN'S MEDICAL CENTERStart: 91-85-1766YBVLSRN FRESH FROZEN PLASMAABENCOMPASS HE[facility] CORDDIAMOND CHILDREN'S MEDICAL CENTERStart: 65-44-6573BRBAEMR PLATELETS (CROSSMATCH)VIOLET CORDDIAMOND CHILDREN'S MEDICAL CENTERStart: 86-20-3768KLZV AND CROSSMATCHABNER CORDDIAMOND CHILDREN'S MEDICAL CENTERStart: 88-24-3989Nicwx count complete auto&auto difrntl wbcABNER CORDDIAMOND CHILDREN'S MEDICAL CENTERStart: 94-71-1278HAKZB DRUG SCREENABNER CORDDIAMOND CHILDREN'S MEDICAL CENTERStart: 76-96-2417ZPCT OUT GRP.B STREPABNER CORDEROStart: 88-09-8433Sq preg uterus w/detail alejandra 1st gestationABNER CORDEROStart: 59-65-4176Vc preg uterus after 1st trimest 1/ gestationABNER CORDEROStart: 24-24-4698Gbzolsacm cultureABNER CORDEROStart: 15-88-5915ISS SCREENABNER [place]SONS Start: 05-27-2017N. GONORRHOEAE CULTUREABENCOMPASS [facility] CORDEROStart: 42-85-4351RFPVVWVZ PROFILE IABNER CORDEROStart: 64-44-3978ZYWMDJIL TYPE AND SCREENABNER [place] Start: 67-63-1115V4, FREEABNER CORDEROStart: 63-19-8381VKQ WITHOUT REFLEXABNER CORDEROThroat Ladonna Lim Other Plan of Treatment DateCare ActivityDetailAuthorStart: 41-80-5733Qhssbapek for malignant neoplasm of cervixNOMS HealthcareStart: 07-18-2025 End: 58-92-1591Cahkoap encounter mmlclqzmu60/04/2026 10:20 AM EST [facility] [address] [place] [address] Lynn Pope DO [address] [place] [address] Critical access hospital 230 Start: 04-11-2025 End: 13-28-0529Axkimejp Haupqvu3504/11/2025 10:30 AM EST Clinical Support [facility] [address] [place] [phone] Lesli Cain, [facility] [address] [place], [place] [address] [facility]ITALDemetrius [facility]al HealthStart: 03-28-2025 End: 28-01-6160Aiwyydpm Hcnywin8503/28/2025 12:30 PM EST Clinical Support [facility] [address] [place] [address] Lesli Cain, [facility] [address] [place], [place] [address] [facility]PITALDemetrius [facility] HealthStart: 03-22-2025 End: 23-51-2705Gfldakcm Xutmvqn7303/22/2025 7:30 AM EST Clinical Support [facility] [address] [place] [phone] Lesli Cain, LPCC [address] [place], [place] [address] [facility]OMDem[facility]al HealthStart: 03-14-2025 End: 35-80-3131Xhcteboe Onovpsp2903/14/2025 10:30 AM EDT Clinical Support [facility] [address] [place] [address] Lesli Cain, [facility] [address] [place], [place] [address] [facility]OMDem[facility]al HealthStart: 03-07-2025 End: 79-01-9308Bzjwpkoi SupportNOMS [place] Behavioral HealthComment on above: ArrivedStart: 02-28-2025 End: 09-74-6316Xdhvlzha SupportNOMS [facility] Behavioral HealthComment on above: ArrivedStart: 02-21-2025 End: 96-40-7948Hexttvyh SupportNOMS [place] Behavioral HealthComment on above: ESTEFANY (generalized anxiety disorder) ; Moderate episode of recurrent major depressive disorder (HCC)Start: 02-19-2025 End: 60-25-5320Sziekps encounter procedureNOMS BCP OBStart: 02-07-2025 End: 79-01-9264Jmggdlnt SupportNOMS [place] Behavioral HealthComment on above: ArrivedStart: 01-31-2025 End: 05-70-4819Cdxkrgfr Wbvoxfd4401/31/2025 9:30 AM EDT Clinical Support [facility] [address] [place] [phone] Lesli Cain, [facility] [address] [place], [place] [address] NOMDem[facility]rius [facility]al HealthStart: 01-24-2025 End: 95-63-1280Wlggfecc Fhuuizq6801/24/2025 10:30 AM EDT Clinical Support [facility] [address] [place] [address] Lesli Cain, [facility] [address] [place], [place] [address] NOMDem[facility]rius [facility]al HealthStart: 01-18-2025 End: 28-04-8764Ssolthp encounter procedureNOMS [facility] 230Start: 01-17-2025 End: 78-14-1204Uykgekre SupportNOCA [place] Behavioral HealthComment on above: ArrivedStart: 01-39-7241VCJYK-19 Vaccine ( season)COVID-19 Vaccine ()NOM HealthcareStart: 99-08-9748Hezyqvgqs vaccinationNOCA HealthcareStart: 01-10-2025 End: 58-36-0011Ppmeygtr SupportNOMS [place] Behavioral HealthComment on above: ArrivedStart: 12-21-2024 End: 70-45-4729Frqqwkqt SupportNOSOUTHEAST MISSOURI COMMUNITY TREATMENT CENTERStart: 12-14-2024 End: 47-36-5880Aqsmbnsy Ppwalas1712/14/2024 8:00 AM EDT Clinical Support NOMS [facility] [address] [place] [phone] Lesli Cain, [facility] [address] [place] [address] (Wo rk) NOMUNIVERSITY OF MISSOURI HEALTH CAREStart: 11-09-2024 End: 39-23-1537Orgzkvfq Ahocoyo8711/09/2024 10:00 AM EDT Clinical Support N[facility] [address] [place] [address] Lesli Cain, [facility] [address] [place] [address] (W ork) ArrivedNOSOUTHEAST MISSOURI COMMUNITY TREATMENT CENTERComment on above:ArrivedStart: 10-26-2024 End: 22-18-7009Pmkwlltr Ykenslz9610/26/2024 12:00 PM EDT Clinical Support NOM[facility] [address] [place] [address] Lesli Cain, [facility] [address] [place] [address] (W ork) NOMS [facility] BHStart: 10-17-2024 End: 98-22-2267Dupoayj encounter procedureNOMS [facility] FM 230Comment on above: ArrivedStart: 10-05-2024 End: 69-38-0673Ehqauafv Qzqgwmh3510/05/2024 1:00 PM EDT Clinical Support N[facility] [address] [place] [phone] Lesli Cain, [facility] [address] [place] [address] (Wo rk) NOMUNIVERSITY OF MISSOURI HEALTH CAREStart: 09-26-2024 End: 44-77-3618Sfmorsby Enijkjw7209/26/2024 8:00 AM EDT Clinical Support NOM[facility] [address] [place] [phone] Lesli Cain, [facility] [address] [place] [address] (Wo rk) [facility] BHStart: 09-14-2024 End: 46-14-6303Qucobtkf SupportNOFAIRCHILD MED[facility] BHComment on above:ArrivedStart: 08-31-2024 End: 33-85-4175Qcgccapi SupportNOFAIRCHILD MEDICAL [facility] BHComment on above:ArrivedStart: 08-24-2024 End: 28-72-0703Xuvameia SupportNOFAIRCHILD MEDICAL [facility]ENTER BHComment on above:ArrivedStart: 08-10-2024 End: 04-59-0519Jsgbzyui Kskxlzu8908/10/2024 8:00 AM EDT Clinical Support [facility] [address] [place] [phone] Lesli Cain, [facility] [address] [place] [address] (Wo rk) N[facility] BHStart: 07-17-2024 End: 09-74-4627Ieczona encounter procedureNOMS [facility] 230Comment on above: ArrivedStart: 04-17-2024 End: 85-97-9011Ymybhvv encounter zhagszabt27/02/2024 8:20 AM EST Office Visit [facility] [address] [place] [phone] [place] Lynn L, DO [address] [place] [address] ArrivedNOMS [facility] 230Comment on above:ArrivedStart: 03-17-2024 End: 33-33-4724Dcjmfus encounter yrucgkiru69/01/2024 8:20 AM EDT Office Visit [facility] [address] [address] [place] [phone] Lebanon, Lynn L, DO [address] [place] [address] [facility] 230Start: 02-29-2024 End: 31-01-3714Igniigyiqwnr / ancillary services jbykaoojjc15/15/2024 11:00 AM EDT Ancillary Procedure [facility] [address] [place] [address] [address] [place], [place] [phone] LJZZ BCP OBStart: 02-23-2024 End: 09-32-6123Gjgesap encounter dkvxonvai53/09/2024 5:20 PM EDT Office Visit [facility] [address] [place] [phone] Lebanon Lynn L, DO [address] [place] [address] [facility] 230Start: 02-17-2024 End: 02-73-1489LR for pregnancyUS PELVIS-TRANSVAG IF INDICATED Imaging Routine Hx of ovarian cyst Acute left lower quadrant pain Expected: 02/17/2024 (Approximate), Expires: 02/16/2025[facility] HealthcareComment on above:Expected: 02/17/2024 (Approximate), Expires: 02/16/2025Start: 02-17-2024 End: 02-83-8796Cresram encounter procedureNOMS BCP OBComment on above:Arrived Start: 02-16-2024 End: 81-23-5645Qznloam encounter kptlnbgub80/02/2024 8:20 AM EDT Office Visit [facility] [address] [place] [phone] Lynn Pope DO [address] [place] [address] ArrivedN[facility]S [facility] 230Comment on above:ArrivedStart: 02-09-2024 End: 419940-vanzclrkfwyqpk D3 [Mass/volume] in Serum or PlasmaVitamin D 25 hydroxy Total Lab Routine Wellness examination Encounter for vitamin deficiency screening Chronic fatigue Expected: 02/09/2024 (Approximate), Expires: 02/08/2025 Healthcare Work Phone: Comment on above:Expected: 02/09/2024 (Approximate), Expires: 02/08/2025Start: 02-09-2024 End: 97-00-3359ONB W Auto Differential panel - BloodCBC and differential Lab Routine Wellness examination Screening for heart disease Expected: 02/09/2024 (Approximate), Expires: 02/08/2025N[facility] HealthcareComment on above:Expected: 02/09/2024 (Approximate), Expires: 02/08/2025Start: 02-09-2024 End: 71-47-2377Htvzwtmeb (Vitamin B12) [Mass/volume] in Serum or PlasmaVitamin B12 Lab Routine Wellness examination Encounter for vitamin deficiency screening Chronic fatigue Expected: 02/09/2024 (Approximate), Expires: 02/08/2025N[facility]S HealthcareComment on above:Expected: 02/09/2024 (Approximate), Expires: 02/08/2025Start: 02-09-2024 End: 70-29-7975Nomersqzjpwvb metabolic 2000 panel - Serum or PlasmaComprehensive metabolic panel Lab Routine Wellness examination Screening for heart disease Expected: 02/09/2024 (Approximate), Expires: 02/08/2025[facility] HealthcareComment on above:Expected: 02/09/2024 (Approximate), Expires: 02/08/2025Start: 02-09-2024 End: 43-79-9140Thdscrbqel A1c/Hemoglobin.total in BloodHemoglobin A1c Lab Routine Insulin resistance Expected: 02/09/2024 (Approximate), Expires: 02/08/2025N[facility] HealthcareComment on above:Expected: 02/09/2024 (Approximate), Expires: 02/08/2025Start: 02-09-2024 End: 75-13-4552Dewsi 1996 panel - Serum or PlasmaLipid panel Lab Routine Wellness examination Screening for heart disease Expected: 02/09/2024 (Appro ximate), Expires: 02/08/2025[facility] HealthcareComment on above:Expected: 02/09/2024 (Approximate), Expires: 02/08/2025Start: 02-09-2024 End: 57-49-7769Kfravusjfpw [Units/volume] in Serum or PlasmaTSH Lab Routine Wellness examination Abnormal weight gain Chronic fatigue Expected: 02/09/2024 (Approximate), Expires: 02/08/2025[facility] HealthcareComment on above:Expected: 02/09/2024 (Approximate), Expires: 02/08/2025Start: 02-09-2024 End: 18-08-0832Ftvsgrt encounter nfrlrebxo23/25/2024 9:00 AM EDT Office Visit [facility] [address] [place] [phone] Lynn Pope DO [address] [place] [address] ArrivedN[facility] 230Comment on above:ArrivedStart: 88-37-2727Rkbtukiix vaccinationInfluenza Vaccine (#1)[facility] HealthcareStart: 92-91-9655Itasnq cultureThroat CultureKnox Community Hospitaltart: 54-01-3056Wwodnyuah for malignant neoplasm of cervixNOCA HealthcareStart: 53-76-1216Ogkctcqhk for malignant neoplasm of cervixPap SmearNOSaint Mary's Hospital of [facility] Start: 73-38-8683Gjlchzvginns Vaccine: Pediatrics (0 to 5 Years) and At-Risk Patients (6 to 64 Years) (1 of 2 - PCV)Pneumococcal Vaccine: Pediatrics (0 to 5 Years) and At-Risk Patients (6 to 64 Years) (1 of 2 - PCV)[facility] Bacteria identified in Throat by [facility] Cytology Cervical or vaginal smear or scraping studyPap Smear Pathology and Cytology Routine Well woman exam with routine gynecological exam Ordered: [facility] Work Phone: comment on above:Ordered: 02/17/2024[place] papilloma virus DNA [Presence] in Unspecified specimen by Probe with amplificationHPV DNA probe, amplified Microbiology Routine Well woman exam with routine gynecological exam Ordered: 02/17/2024[facility] CenterComment on above:Ordered: 02/17/2024 Payers DatePayer CategoryPayerPolicy [id number] [id number] 05-96-4115Njcy-[id number] [id number] 2.16.840.1.103957.3.579.[id number] 2.16.840.1.567974.3.579.[id number] 2.16.840.1.535794.3.579.[id number] 2.16.840.1.265970.3.579.[id number] 2..840.1.774046.3.579.[id number] 2.16.840.1.697162.3.579.2.[id number] 2..840.1.879845.3.579.2.300210-01-4575Yyzmbhq08551555 2..840.1.211980.3.579.2.736952-55-5736Cooeulk35054937 2.16.840.1.637038.3.579.2.788458-33-3478Hcnzhmm40523130 2.16.840.1.244181.3.579.2.919036-35-8575Gespmzk38606642 2.16.840.1.305588.3.579.2.[id number] 2.16.840.1.009536.3.579.[id number] 2.16.840.1.300931.3.579.2.579232-76-8643Cknjyvw1147360 2.16.840.1.252295.3.579.2.588925-67-7989Eazkdbu2502302 2.16.840.1.242138.3.579.2.815716-54-0391Hykdogo7009994 2.16.840.1.728819.3.579.2.[id number] 2.16.840.1.383018.3.579.2.370278-90-6217Ppsxvgx3027380 2..840.1.443256.3.579.2.075738-78-9078Juwsnse1306526 2..840.1.389442.3.579.2.335271-11-4835Vcdadkg6133308 2.16.840.1.257538.3.579.2.572288-33-6189Curmlzh1889951 2..0.1.821828.3.579.2.455259-99-6304Tdwz Cross Blue [id number] 2.16.840.1.609546.5[id number] 2.16.840.1.726328.3.579.2.196Zmryqlb05625362 2..840.1.230379.3.579.2.531 UnknownAnthem /[id number]-[id number] Social History DateTypeDetailFacilityUnknown if ever smokedNort Scarecrow Project Other Start: 02-02-2024 End: 88-93-5740Odv Assigned At [facility] [place] operated by [facility] HealthStart: 72-39-1465Xnl Assigned At [facility] Hospitaltart: 39-49-5145Xyumkkx smoking status NHISSmoker (finding)[facility] Hospitaltart: 02-09-2024 End: 21-68-3257Grfdgsi smoking status NHISOccasional tobacco smokerNOCA HealthcareHistory of tobacco useCigarette SmokerNOCA HealthcareStart: 02-02-2024 End: 54-63-1831Ptkqqadvny smoked current (pack per day) - Reported0.3N[facility] HealthcareStart: 02-09-2024 End: 22-46-7719Zyudspd use and exposureSmokeless tobacco non-userNOCA Healthcare Start: 02-09-2024 End: 71-46-7465Cwrddmrpu beverage intakeLifetime non-drinker (finding)[facility] HealthcareStart: 02-68-1919Wsw often do you need to have someone help you when you read instructions, pamphlets, or other written material from your doctor or pharmacy [SILS]NeverNOMS HealthcareDo you belong to any clubs or organizations such as taoist groups, unions, fraVeodin or athletic groups, or school groups?No [facility] HealthcareAre you now , , , , never or living with a partner?MarriedNOMS HealthcareHow often to you have a drink containing alcohol?Monthly or lessNOMS HealthcareHow many standard drinks containing alcohol do you have on a typical day?1 or 2NOMS HealthcareHow often do you have 6 or more drinks on 1 occasion?NeverNOMS HealthcareHow hard is it for you to pay for the very basics like food, housing, medical care, and heating Somewhat hardNOMS HealthcareDo you feel stress - tense, restless, nervous, or anxious, or unable to sleep at night because yourmind is troubled all the time - these days [OSQ]Not at allNOMS Healthcare(I/We) worried whether (my/our) food would run out before (I/we) got money to buy more.Never trueNOCA Healthcare Start: 13-79-3965Qjlzqz identityIdentifies as female gender (finding)[facility] HealthcareTobacco smoking status NHISTobacco smoking consumption unknownNOMS Healthcare Functional Status LvrjOuzhndsrvjDhoihhQkznfkio83-00-7503Kmrvddc Health Questionnaire 2 item (PHQ- 2) [Reported][facility] Qplnfwiqcs36-25-1144Nsocgqc Health Questionnaire 2 item (PHQ- 2) [Reported][facility] Clinical Notes 05-12-2021 to 09-04-2025 Note Date & PxouMjjsGofvnqjt53-91-6109 Telephone encounter Note* Telephone Encounter - Lynn Pope DO - 01/18/2025 12:41 PM EDT Let patient know I had to send a different form of wellbutrin due to coverage, she will now take a max of 1 tablet BID rather than 2. Still increase dose after 1 week at starting dose. [facility] CenterYyoncrwlhy64-94-0066 Miscellaneous Notes* Telephone Encounter - Lynn Pope DO - 01/18/2025 12:41 PM EDT Let patient know I had to send a different form of wellbutrin due to coverage, she will now take a max of 1 tablet BID rather than 2. Still increase dose after 1 week at starting dose. documented in this encounterAudrain Medical CenterSifnvjtfqf47-51-8178 History of Present illness Narrative* Lynn Pope DO - 01/18/2025 11:00 AM EDT Images from the original note were not included. [facility] DIEGO Bojorquez SUBJECTIVE: HPI: Isaac Andrade is a 34 y.o. female who presents with chief complaint of Weight Check Pt presents for her 3 month follow up from Adipex. Pt notes that she has gained some weight and feels that the medication is not helping any longer. Pt would like to discuss other options at this time as she is not where she would like to be at with her weight. No other concerns at this time. I have reviewed and reconciled the history and medication list with the patient today. History of Present Illness The patient presents for weight management. She reports that her current medication, Adipex, has not been effective in recent times. Despite this, she has managed to maintain a stable weight and has lost over 30 pounds from her maximum weight of 252 pounds. She expresses a desire to lose an additional 20 pounds to reach a comfortable weight.She is interested in exploring other treatment options as she feels she has not yet achieved her desired weight loss goal. She has successfully established healthy habits over the past few months butnotes that the effects of Adipex have diminished. She reports no history of seizures. She also mentions that she does not experience stress, anxiety, or depression. She is currently taking Topamax and is curious about its compatibility with other medications. SOCIAL HISTORY She has quit smoking. MEDICATIONS - Topamax Depression: Not at risk (01/18/2025) PHQ-2 PHQ-2 Score: 0 reports that she has been smoking cigarettes. She has a 2.5 pack-year smoking history. She has never used smokeless tobacco. She reports that she does not drink alcohol and does not use drugs. OBJECTIVE: 02/16/2024 8:03 AM 02/17/2024 10:06 AM 03/17/2024 8:24 AM 04/17/2024 8:20 AM 07/17/2024 8:06 AM 10/17/2024 8:50 AM 01/18/2025 10:44 AM Vitals BMI 40.22 kg/m2 40.21 kg/m2 38.67 kg/m2 37.77 kg/m2 35.83 kg/m2 34.7 kg/m2 35.67 kg/m2 BSA (m2) 2.29 m2 2.29 m2 2.25 m2 2.22 m2 2.17 m2 2.13 m2 2.16 m2 Systolic 118 118 118 124 128 122 126 Diastolic 64 70 86 72 80 70 74 Heart Rate 90 96 94 82 90 90 SpO2 98 % 99 % 98 % 99 % 100 % 100 % Temp 96.8 F 97.1 F 98.1 F 98.2 F 98.4 F 98.4 F Height (in) 5' 6 5' 6 5' 6 5' 6 5' 6 5' 6 Weight (lb) 249.2 249.12 239.6 234 222 215 221 Visit Report Report Report Report Report Report Report Report Physical Exam Physical Exam General Appearance: Alert, no distress. Respiratory: No respiratory distress, normal work of breathing. CTA bilat without wheezes or ronchi. Cardiovascular: RRR, no murmurs. Skin: Warm and dry, no rash. Neurological: Normal. Psychiatric: normal affect, normal thought content. Results No results found for this or any previous visit (from the past 4 weeks). ASSESSMENT AND PLAN: Assessment/Plan Diagnoses and all orders for this visit: Class 2 obesity due to excess calories without serious comorbidity with body mass index (BMI) of 35.0 to 35.9 in adult - naltrexone (Depade) 50 MG tablet; Take 1 tablet (50 mg) by mouth Daily Assessment & Plan 1. Weight management: Stable. - Temporary discontinuation of Adipex to prevent tolerance development. - Initiate trial of Contrave (bupropion and naltrexone). - Prescriptions for Wellbutrin and naltrexone provided with a 6-month supply and refills sent to [facility]. - Gradual increase of Wellbutrin dosage over 4 weeks: 1 pill in the morning for the first week, 1 pill in the morning and 1 pill in the evening for the second week, 2 pills in the morning and 1 pill in the evening for the third week, and 2 pills in the morning and 2 pills in the evening for the fourth week. - Naltrexone to be taken once daily. - Informed about potential side effects and advised to discontinue use if adverse reactions occur. - Medications may assist with smoking cessation cravings. Follow-up - Follow-up in 6 months to reassess weight management and potential resumption of Adipex. Lynn Pope DO Patient Active Problem List Diagnosis Class 3 severe obesity without serious comorbidity with body mass index (BMI) of 40.0 to 44.9 in adult ([facility]) Hidradenitis suppurativa Tobacco use Nicotine dependence Mixed urge and stress incontinence Gastroesophageal reflux disease Social anxiety disorder Migraine Dysthymia ESTEFANY (generalized anxiety disorder) Moderate episode of recurrent major depressive disorder (HCC) Past Medical History: Diagnosis Date Chronic tonsillitis 04/28/2017 Headache History of transfusion 12/26/2017 Obesity Ovarian cyst Panic attack Stress incontinence of urine 02/09/2024 documented in this encounterAudrain Medical CenterXbniqbwugq81-68-1673 History of Present illness Narrative* Lynn Pope DO - 10/17/2024 8:40 AM EDT Images from the original note were not included. [facility] DIEGO Bojorquez SUBJECTIVE: HPI: Isaac Andrade is a 34 y.o. female who presents with chief complaint of Adipex follow up. Pt presents for her 3 month follow up for Adipex. Pt states that things are going well but has noticed that the effects of this have seem to wear off. She states that the Topamax is helping with her headaches. Pt is requesting a refill of Adipex. No other concerns at this time. I have reviewed and reconciled the history and medication list with the patient today. Depression: Not at risk (10/17/2024) PHQ-2 PHQ-2 Score: 0 reports that she has been smoking cigarettes. She has a 2.5 pack-year smoking history. She has never used smokeless tobacco. She reports that she does not drink alcohol and does not use drugs. OBJECTIVE: 02/09/2024 8:45 AM 02/16/2024 8:03 AM 02/17/2024 10:06 AM 03/17/2024 8:24 AM 04/17/2024 8:20 AM 07/17/2024 8:06 AM 10/17/2024 8:50 AM Vitals BMI 40.67 kg/m2 40.22 kg/m2 40.21 kg/m2 38.67 kg/m2 37.77 kg/m2 35.83 kg/m2 34.7 kg/m2 BSA (m2) 2.3 m2 2.29 m2 2.29 m2 2.25 m2 2.22 m2 2.17 m2 2.13 m2 Systolic 118 118 118 118 124 128 122 Diastolic 62 64 70 86 72 80 70 Heart Rate 115 90 96 94 82 90 SpO2 100 % 98 % 99 % 98 % 99 % 100 % Temp 98.6 F 96.8 F 97.1 F 98.1 F 98.2 F 98.4 F Height (in) 5' 6 5' 6 5' 6 5' 6 5' 6 5' 6 Weight (lb) 252 249.2 249.12 239.6 234 222 215 Visit Report Report Report Report Report Report Report Report Physical Exam Constitutional: General: She is not in acute distress. Appearance: She is not ill-appearing. HENT: Head: Normocephalic. Cardiovascular: Rate and Rhythm: Normal rate and regular rhythm. Heart sounds: No murmur heard. Pulmonary: Effort: Pulmonary effort is normal. Breath sounds: Normal breath sounds. No wheezing. Abdominal: General: Abdomen is flat. There is no distension. Tenderness: There is no abdominal tenderness. Musculoskeletal: General: No deformity. Normal range of motion. Cervical back: Normal range of motion. Skin: General: Skin is warm and dry. Neurological: General: No focal deficit present. Mental Status: She is alert and oriented to person, place, and time. Psychiatric: Mood and Affect: Mood normal. Behavior: Behavior normal. Thought Content: Thought content normal. Judgment: Judgment normal. No results found for this or any previous visit (from the past 4 weeks). ASSESSMENT AND PLAN: Assessment/Plan Diagnoses and all orders for this visit: Abnormal weight gain - topiramate (Topamax) 25 MG tablet; Take 1 tablet (25 mg) by mouth in the morning and 1 tablet (25mg) before bedtime. - phentermine (Adipex-P) 37.5 MG tablet; Take 1 tablet (37.5 mg) by mouth in the morning. Take before meals. After review of vitals including weight trend and discussion of board of pharmacy regulations, the patient is making satisfactory progress in weight loss on adipex. she will continue on the current tx. No intolerable side effects noted. Discussed continued lifestyle modifications to ensure she continues to lose weight. Lynn Pope DO Patient Active Problem List Diagnosis Class 3 severe obesity without serious comorbidity with body mass index (BMI) of 40.0 to 44.9 in adult Hidradenitis suppurativa Tobacco use Nicotine dependence Mixed urge and stress incontinence Gastroesophageal reflux disease Social anxiety disorder (CMS/HCC) Migraine Dysthymia (CMS/HCC) ESTEFANY (generalized anxiety disorder) (CMS/HCC) Moderate episode of recurrent major depressive disorder (CMS/HCC) Past Medical History: Diagnosis Date Chronic tonsillitis 04/28/2017 Headache History of transfusion 12/26/2017 Obesity Ovarian cyst Panic attack (CMS/HCC) Stress incontinence of urine 02/09/2024 documented in this encounterAudrain Medical CenterNukqcddoad15-71-7176 History of Present illness Narrative* Lynn Pope DO - 07/17/2024 8:00 AM EST Images from the original note were not included. [facility] DIEGO Bojorquez SUBJECTIVE: HPI: Isaac Andrade is a 34 y.o. female who presents with chief complaint of No chief complaint on file. Pt states that she has no concern or complaints she states that she is starting to get hungry earlier in the day. She is also asking for a referral to I have reviewed and reconciled the history and medication list with the patient today. Depression: Not at risk (07/17/2024) PHQ-2 PHQ-2 Score: 0 reports that she has been smoking cigarettes. She has a 2.5 pack-year smoking history. She has never used smokeless tobacco. She reports that she does not drink alcohol and does not use drugs. OBJECTIVE: 03/16/2018 12:00 PM 02/09/2024 8:45 AM 02/16/2024 8:03 AM 02/17/2024 10:06 AM 03/17/2024 8:24 AM 04/17/2024 8:20 AM 07/17/2024 8:06 AM Vitals BMI 35.02 kg/m2 40.67 kg/m2 40.22 kg/m2 40.21 kg/m2 38.67 kg/m2 37.77 kg/m2 35.83 kg/m2 BSA (m2) 2.14 m2 2.3 m2 2.29 m2 2.29 m2 2.25 m2 2.22 m2 2.17 m2 Systolic 103 118 118 118 118 124 128 Diastolic 59 62 64 70 86 72 80 Heart Rate 115 90 96 94 82 SpO2 100 % 98 % 99 % 98 % 99 % Temp 98.6 F 96.8 F 97.1 F 98.1 F 98.2 F Height (in) 5' 6 5' 6 5' 6 5' 6 5' 6 5' 6 Weight (lb) 217 252 249.2 249.12 239.6 234 222 Visit Report Report Report Report Report Report Report Physical Exam Constitutional: General: She is not in acute distress. Appearance: She is not ill-appearing. HENT: Head: Normocephalic. Cardiovascular: Rate and Rhythm: Normal rate and regular rhythm. Heart sounds: No murmur heard. Pulmonary: Effort: Pulmonary effort is normal. Breath sounds: Normal breath sounds. No wheezing. Abdominal: General: Abdomen is flat. There is no distension. Tenderness: There is no abdominal tenderness. Musculoskeletal: General: No deformity. Normal range of motion. Cervical back: Normal range of motion. Skin: General: Skin is warm and dry. Neurological: General: No focal deficit present. Mental Status: She is alert and oriented to person, place, and time. Psychiatric: Mood and Affect: Mood normal. Behavior: Behavior normal. Thought Content: Thought content normal. Judgment: Judgment normal. No results found for this or any previous visit (from the past 4 weeks). ASSESSMENT AND PLAN: Assessment/Plan Diagnoses and all orders for this visit: Adjustment disorder, unspecified type (CMS/HCC) - Ambulatory referral to Behavioral Health; Future Abnormal weight gain - topiramate (Topamax) 25 MG tablet; Take 1 tablet (25 mg) by mouth in the morning and 1 tablet (25mg) before bedtime. After review of vitals including weight trend and discussion of board of pharmacy regulations, the patient is making satisfactory progress in weight loss on adipex. @GENDER@ will continue on the current tx. No intolerable side effects noted. Discussed continued lifestyle modifications to ensure she continues to lose weight. Lynn Pope DO Patient Active Problem List Diagnosis Class 3 severe obesity without serious comorbidity with body mass index (BMI) of 40.0 to 44.9 in adult Hidradenitis suppurativa Tobacco use Nicotine dependence Mixed urge and stress incontinence Gastroesophageal reflux disease Social anxiety disorder (CMS/HCC) Migraine Dysthymia (CMS/HCC) ESTEFANY (generalized anxiety disorder) (CMS/HCC) Moderate episode of recurrent major depressive disorder (CMS/HCC) Past Medical History: Diagnosis Date Chronic tonsillitis 04/28/2017 Headache History of transfusion 12/26/2017 Obesity Ovarian cyst Stress incontinence of urine 02/09/2024 documented in this encounterAudrain Medical CenterWsheifgfcf68-00-5195 History of Present illness Narrative* Lynn Pope DO - 04/17/2024 8:20 AM EST Images from the original note were not included. [facility] DIEGO Bojorquez SUBJECTIVE: HPI: Isaac Andrade is a 34 y.o. female who presents with chief complaint of No chief complaint on file. Pt presents for her 1 month Adipex follow up. Pt notes that she is doing well at this time. She hascontinued with diet and exercise. No other concerns at this time. I have reviewed and reconciled the history and medication list with the patient today. Depression: Not at risk (03/17/2024) PHQ-2 PHQ-2 Score: 0 reports that she has been smoking cigarettes. She has a 2.5 pack-year smoking history. She has never used smokeless tobacco. She reports that she does not drink alcohol and does not use drugs. OBJECTIVE: 03/16/2018 12:00 PM 02/09/2024 8:45 AM 02/16/2024 8:03 AM 02/17/2024 10:06 AM 03/17/2024 8:24 AM 04/17/2024 8:20 AM Vitals BMI 35.02 kg/m2 40.67 kg/m2 40.22 kg/m2 40.21 kg/m2 38.67 kg/m2 37.77 kg/m2 BSA (m2) 2.14 m2 2.3 m2 2.29 m2 2.29 m2 2.25 m2 2.22 m2 Systolic 103 118 118 118 118 124 Diastolic 59 62 64 70 86 72 Heart Rate 115 90 96 94 SpO2 100 % 98 % 99 % 98 % Temp 98.6 F 96.8 F 97.1 F 98.1 F Height (in) 5' 6 5' 6 5' 6 5' 6 5' 6 Weight (lb) 217 252 249.2 249.12 239.6 234 Visit Report Report Report Report Report Report Physical Exam Constitutional: General: She is not in acute distress. Appearance: She is not ill-appearing. HENT: Head: Normocephalic. Cardiovascular: Rate and Rhythm: Normal rate and regular rhythm. Heart sounds: No murmur heard. Pulmonary: Effort: Pulmonary effort is normal. Breath sounds: Normal breath sounds. No wheezing. Abdominal: General: Abdomen is flat. There is no distension. Tenderness: There is no abdominal tenderness. Musculoskeletal: General: No deformity. Normal range of motion. Cervical back: Normal range of motion. Skin: General: Skin is warm and dry. Neurological: General: No focal deficit present. Mental Status: She is alert and oriented to person, place, and time. Psychiatric: Mood and Affect: Mood normal. Behavior: Behavior normal. Thought Content: Thought content normal. Judgment: Judgment normal. No results found for this or any previous visit (from the past 4 weeks). ASSESSMENT AND PLAN: Assessment/Plan Diagnoses and all orders for this visit: Abnormal weight gain - phentermine (Adipex-P) 37.5 MG tablet; Take 1 tablet (37.5 mg) by mouth in the morning. Take before meals. After review of vitals including weight trend and discussion of board of pharmacy regulations, the patient is making satisfactory progress in weight loss on adipex. @GENDER@ will continue on the current tx. No intolerable side effects noted. Discussed continued lifestyle modifications to ensure she continues to lose weight. Lynn Pope DO Patient Active Problem List Diagnosis Class 3 severe obesity without serious comorbidity with body mass index (BMI) of 40.0 to 44.9 in adult ([facility]) Hidradenitis suppurativa Tobacco use Past Medical History: Diagnosis Date Chronic tonsillitis 04/28/2017 Headache History of transfusion 12/26/2017 Obesity Ovarian cyst Stress incontinence of urine 02/09/2024 documented in this encounterAudrain Medical [id number] History of Present illness Narrative* Lynn Pope DO - 03/17/2024 8:20 AM EDT Images from the original note were not included. [facility] DIEGO Bojorquez SUBJECTIVE: HPI: Isaac Andrade is a 33 y.o. female who presents with chief complaint of Follow-up Pt states she is here for a 1 month follow up on adipex. Pt states she has no concerns at this time. I have reviewed and reconciled the history and medication list with the patient today. Depression: Not at risk (03/17/2024) PHQ-2 PHQ-2 Score: 0 reports that she has been smoking cigarettes. She has a 2.5 pack-year smoking history. She has never used smokeless tobacco. She reports that she does not drink alcohol and does not use drugs. OBJECTIVE: 03/16/2018 12:00 PM 02/09/2024 8:45 AM 02/16/2024 8:03 AM 02/17/2024 10:06 AM 03/17/2024 8:24 AM Vitals BMI 35.02 kg/m2 40.67 kg/m2 40.22 kg/m2 40.21 kg/m2 38.67 kg/m2 BSA (m2) 2.14 m2 2.3 m2 2.29 m2 2.29 m2 2.25 m2 Systolic 103 118 118 118 118 Diastolic 59 62 64 70 86 Heart Rate 115 90 96 SpO2 100 % 98 % 99 % Temp 98.6 F 96.8 F 97.1 F Height (in) 5' 6 5' 6 5' 6 5' 6 Weight (lb) 217 252 249.2 249.12 239.6 Visit Report Report Report Report Report Physical Exam Constitutional: General: She is not in acute distress. Appearance: She is not ill-appearing. HENT: Head: Normocephalic. Cardiovascular: Rate and Rhythm: Normal rate and regular rhythm. Heart sounds: No murmur heard. Pulmonary: Effort: Pulmonary effort is normal. Breath sounds: Normal breath sounds. No wheezing. Abdominal: General: Abdomen is flat. There is no distension. Tenderness: There is no abdominal tenderness. Musculoskeletal: General: No deformity. Normal range of motion. Cervical back: Normal range of motion. Skin: General: Skin is warm and dry. Neurological: General: No focal deficit present. Mental Status: She is alert and oriented to person, place, and time. Psychiatric: Mood and Affect: Mood normal. Behavior: Behavior normal. Thought Content: Thought content normal. Judgment: Judgment normal. No results found for this or any previous visit (from the past 4 weeks). ASSESSMENT AND PLAN: Assessment/Plan Diagnoses and all orders for this visit: Abnormal weight gain - phentermine (Adipex-P) 37.5 MG tablet; Take 1 tablet (37.5 mg) by mouth in the morning. Take before meals. After review of vitals including weight trend and discussion of board of pharmacy regulations, the patient is making satisfactory progress in weight loss on adipex. @GENDER@ will continue on the current tx. No intolerable side effects noted. Discussed continued lifestyle modifications to ensure she continues to lose weight. Lynn Pope DO Patient Active Problem List Diagnosis Class 3 severe obesity without serious comorbidity with body mass index (BMI) of 40.0 to 44.9 in adult ([facility]) Hidradenitis suppurativa Tobacco use Past Medical History: Diagnosis Date Chronic tonsillitis 04/28/2017 Headache History of transfusion 12/26/2017 Obesity Ovarian cyst Stress incontinence of urine 02/09/2024 documented in this encounterAudrain Medical [id number] History of Present illness Narrative* ANA Dempsey - 02/17/2024 10:00 AM EDT Reason for Appointment: Patient ID: Isaac Andrade is a 33 y.o. female who presents for Well Women Visit Patient presents today for Annual Exam. MEDICATIONS Current Outpatient Medications Medication Instructions cholecalciferol (VITAMIN D-3) 50 mcg, Oral, Daily phentermine (ADIPEX-P) 37.5 mg, Oral, Daily before breakfast ALLERGIES No Known Allergies PROBLEMS Active Ambulatory Problems Diagnosis Date Noted Class 3 severe obesity without serious comorbidity with body mass index (BMI) of 40.0 to 44.9 in adult ([facility]) 05/12/2021 Hidradenitis suppurativa 05/12/2021 Tobacco use 05/12/2021 Resolved Ambulatory Problems Diagnosis Date Noted Chronic tonsillitis 04/28/2017 Stress incontinence of urine 02/09/2024 Past Medical History: Diagnosis Date Headache History of transfusion 12/26/2017 Obesity Ovarian cyst HISTORY PAST MEDICAL HISTORY SOCIAL HISTORY Past Medical History: Diagnosis Date Chronic tonsillitis 04/28/2017 Headache History of transfusion 12/26/2017 Obesity Ovarian cyst Stress incontinence of urine 02/09/2024 Social History Tobacco Use Smoking status: Some Days Current packs/day: 0.25 Average packs/day: 0.3 packs/day for 10.0 years (2.5 ttl pk-yrs) Types: Cigarettes Smokeless tobacco: Never Substance Use Topics Alcohol use: Never Drug use: Never FAMILY HISTORY Family History Problem Relation Name Age of Onset Cancer Mother Jana web software engineer Diabetes Mother Jana web software engineer Ovarian cancer Mother Jana web software engineer Parkinsonism Mother Jana web software engineer Cancer Maternal Grandmother Carlota sánchez lymphoma, lung cancer Diabetes Maternal Grandfather Osmar boyle Parkinsonism Maternal Grandfather Osmar boyle SURGICAL HISTORY Past Surgical History: Procedure Laterality Date TUBAL LIGATION REVIEW OF SYSTEMS Review of Systems: Review of Systems Constitutional: Negative. HENT: Negative. Eyes: Negative. Respiratory: Negative. Cardiovascular: Negative. Gastrointestinal: Negative. Genitourinary: Negative. Musculoskeletal: Negative. Skin: Negative. Neurological: Negative. All other systems reviewed and are negative. Hematological: Negative. Endocrine: Negative. Allergic/Immunologic: Negative. OBJECTIVE Objective: Physical Exam Constitutional: Appearance: Normal appearance. She is well-developed. Genitourinary: Vulva normal. Right Adnexa: not tender and no mass present. Left Adnexa: not tender and no mass present. No cervical discharge. Breasts: Breasts are soft. Right: Normal. Left: Normal. HENT: Head: Normocephalic. Nose: Nose normal. Mouth/Throat: Mouth: Mucous membranes are moist. Cardiovascular: Rate and Rhythm: Normal rate and regular rhythm. Pulmonary: Effort: Pulmonary effort is normal. Breath sounds: Normal breath sounds. Abdominal: General: Bowel sounds are normal. There is no distension. Palpations: Abdomen is soft. Tenderness: There is no abdominal tenderness. There is no guarding or rebound. Musculoskeletal: General: No swelling. Normal range of motion. Cervical back: Normal range of motion. Right lower leg: No edema. Left lower leg: No edema. Neurological: General: No focal deficit present. Mental Status: She is alert and oriented to person, place, and time. Skin: General: Skin is warm and dry. Psychiatric: Mood and Affect: Mood normal. Behavior: Behavior normal. Vitals and nursing note reviewed. Exam conducted with a observer helper present. Vitals: Estimated body mass index is 40.21 kg/m as calculated from the following: Height as of 02/16/24: 5' 6 . Weight as of this encounter: 249 lb 1.9 oz. BP: 118/70 No LMP recorded. ASSESSMENT & PLAN ICD-10-CM 1. Well woman exam with routine gynecological exam Z01.419 2. Hx of ovarian cyst Z87.42 3. Acute left lower quadrant pain R10.32 Annual Exam: Patient presents today for an annual exam. Patient states she is doing well. Patient states she hada single episode of llq pain this previous month with mild nausea. She then started period 3 days later. She has history of ovarian cysts. We will order a US for her and follow up as needed. Denies pain today. Pap was obtained without difficulty. No orders of the defined types were placed in this encounter. Follow Up: Patient is to return in one year for annual unless needed otherwise. Documented by Rosalie Morrow LPN on behalf of: ANA Dempsey documented in this encounterAudrain Medical [id number] History of Present illness Narrative* Lynn Pope, - 02/16/2024 8:20 AM EDT Images from the original note were not included. SUBJECTIVE: HPI: Isaac Andrade is a 33 y.o. female who presents with chief complaint of Follow-up Pt states she is here to follow up on her labs and discuss weight management. I have reviewed and reconciled the history and medication list with the patient today. Depression: Not at risk (02/16/2024) PHQ-2 PHQ-2 Score: 0 reports that she has been smoking cigarettes. She has a 2.5 pack-year smoking history. She has never used smokeless tobacco. She reports that she does not drink alcohol and does not use drugs. OBJECTIVE: 03/16/2018 12:00 PM 02/09/2024 8:45 AM 02/16/2024 8:03 AM Vitals BMI 35.02 kg/m2 40.67 kg/m2 40.22 kg/m2 BSA (m2) 2.14 m2 2.3 m2 2.29 m2 Systolic 103 118 118 Diastolic 59 62 64 Heart Rate 115 90 SpO2 100 % 98 % Temp 98.6 F 96.8 F Height (in) 5' 6 5' 6 5' 6 Weight (lb) 217 252 249.2 Visit Report Report Report Physical Exam Constitutional: General: She is not in acute distress. Appearance: She is not ill-appearing. HENT: Head: Normocephalic. Cardiovascular: Rate and Rhythm: Normal rate and regular rhythm. Heart sounds: No murmur heard. Pulmonary: Effort: Pulmonary effort is normal. Breath sounds: Normal breath sounds. No wheezing. Abdominal: General: Abdomen is flat. There is no distension. Tenderness: There is no abdominal tenderness. Musculoskeletal: General: No deformity. Normal range of motion. Cervical back: Normal range of motion. Skin: General: Skin is warm and dry. Neurological: General: No focal deficit present. Mental Status: She is alert and oriented to person, place, and time. Psychiatric: Mood and Affect: Mood normal. Behavior: Behavior normal. Thought Content: Thought content normal. Judgment: Judgment normal. Recent Results (from the past 672 hour(s)) Vitamin D 25 hydroxy Total Collection Time: 02/09/24 9:55 AM Result Value Ref Range Vitamin D, 25-Hydroxy 18.3 (L) 30.0 - 100.0 ng/mL CBC and differential Collection Time: 02/09/24 9:55 AM Result Value Ref Range WBC 9.5 3.4 - 10.8 x10E3/uL RBC 4.91 3.77 - 5.28 x10E6/uL Hgb 14.1 11.1 - 15.9 g/dL Hct 44.5 34.0 - 46.6 % MCV 91 79 - 97 fL MCH 28.7 26.6 - 33.0 pg MCHC 31.7 31.5 - 35.7 g/dL RDW 12.6 11.7 - 15.4 % Platelets 248 150 - 450 x10E3/uL Neutrophils 65 Not Estab. % Lymphs 27 Not Estab. % Monocytes 6 Not Estab. % Eos 1 Not Estab. % Basos 1 Not Estab. % Neutrophils Abs 6.2 1.4 - 7.0 x10E3/uL Lymphs Abs 2.6 0.7 - 3.1 x10E3/uL MonocytesAbs 0.5 0.1 - 0.9 x10E3/uL Eos Abs 0.1 0.0 - 0.4 x10E3/uL Baso Abs 0.1 0.0 - 0.2 x10E3/uL Immature Granulocytes 0 Not Estab. % Immature Grans Abs 0.0 0.0 - 0.1 x10E3/uL Comprehensive metabolic panel Collection Time: 02/09/24 9:55 AM Result Value Ref Range Glucose 98 70 - 99 mg/dL BUN 8 6 - 20 mg/dL Creat 0.72 0.57 - 1.00 mg/dL EGFR 115 >59 mL/min/1.73 BUN/Creat Ratio 11 9 - 23 Sodium 140 134 - 144 mmol/L Potassium 4.4 3.5 - 5.2 mmol/L Chloride 105 96 - 106 mmol/L Carbon Dioxide 20 20 - 29 mmol/L Calcium 9.4 8.7 - 10.2 mg/dL Protein Total 6.9 6.0 - 8.5 g/dL Albumin 4.3 3.9 - 4.9 g/dL Globulin Total 2.6 1.5 - 4.5 g/dL Bili Total 0.4 0.0 - 1.2 mg/dL Alk Phosphatase 42 (L) 44 - 121 IU/L AST 19 0 - 40 IU/L ALT 18 0 - 32 IU/L Lipid panel Collection Time: 02/09/24 9:55 AM Result Value Ref Range Cholesterol, Total 181 100 - 199 mg/dL Triglycerides 194 (H) 0 - 149 mg/dL HDL Cholesterol 35 (L) >39 mg/dL VLDL Cholesterol Darrick 34 5 - 40 mg/dL LDL Chol Calc (NIH) 112 (H) 0 - 99 mg/dL Vitamin B12 Collection Time: 02/09/24 9:55 AM Result Value Ref Range Vitamin B12 1,186 232 - 1,245 pg/mL TSH Collection Time: 02/09/24 9:55 AM Result Value Ref Range TSH 2.230 0.450 - 4.500 uIU/mL Hemoglobin A1c Collection Time: 02/09/24 9:55 AM Result Value Ref Range HgbA1C 5.2 4.8 - 5.6 % ASSESSMENT AND PLAN: Assessment/Plan Diagnoses and all orders for this visit: Abnormal weight gain - phentermine (Adipex-P) 37.5 MG tablet; Take 1 tablet (37.5 mg) by mouth in the morning. Take before meals. Vitamin D insufficiency - cholecalciferol (Vitamin D-3) 50 MCG (2000 UT) tablet; Take 1 tablet (50 mcg) by mouth Daily Dyslipidemia (high LDL; low HDL) ([facility]) Discussed treatment for obesity and offered multiple medications which could help with weight loss including benefits and potential risks/side effects of each. Patient and I agreed to proceed with Adipex treatment. Discussed board of pharmacy regulations as well as specific dietary/lifestyle modifications which should be continued throughout course of treatment and after. I answered all of the patient's questions completely. Discussed lifestyle mods for lipids, start D3 supplementation Patient Active Problem List Diagnosis Class 3 severe obesity without serious comorbidity with body mass index (BMI) of 40.0 to 44.9 in adult ([facility]) Hidradenitis suppurativa Tobacco use Past Medical History: Diagnosis Date Chronic tonsillitis 04/28/2017 Headache History of transfusion 12/26/2017 Obesity Ovarian cyst Stress incontinence of urine 02/09/2024 documented in this encounterAudrain Medical [id number] History of Present illness Narrative* Lynn Pope DO - 02/09/2024 9:00 AM EDT Images from the original note were not included. SUBJECTIVE: HPI: Isaac Andrade is a 33 y.o. female who presents with chief complaint of No chief complaint on file. Pt presents to become established. Pt has not had a PCP in a very long time. Pt is having her annual cervical cancer screening next week. Pt would like to discuss weight loss. Pt notes that she has changed her diet and increased her exercise but this has not been helping with losing weight. No other concerns at this. I have reviewed and reconciled the history and medication list with the patient today. History of Present Illness The patient presents for evaluation of weight management. She has been struggling with persistent weight gain despite dietary modifications and increased physical activity. Her diet changes include reducing sugar and caffeine intake, eliminating sodas, breads, and pastas, and increasing her consumption of fruits, vegetables, and protein. She also reports a decrease in portion sizes. 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 However, a childhood tailbone fracture limits her ability to engage in strenuous exercise. She has four children and a partner who works opposite shifts, which restricts her time for gym workouts. She reports that her weight has been fluctuating significantly over the past year. She was diagnosed with type 2 diabetes at age 42 and has not had blood work since her . She took phentermine 4 years ago and lost weight but stopped after 3 months due to financial constraints. She has no significant past medical history and is not on any medications, except for a Premier protein supplement taken in the morning. She has no known allergies to medications, food, or the environment. She has received her COVID- 19 vaccine and is due for an influenza vaccine required for her work. She underwent tubal ligation in 2019 and experienced a uterine inversion in 2018 during childbirth. She reports no fevers, chills, fatigue, headaches, dizziness, or head injuries. She also reports noneck pain, stiffness, or lumps, chest pain, irregular heartbeats, palpitations, shortness of breath, coughing, or wheezing. She reports mild abdominal pain, which she attributes to a possible cyst rupture. This pain has improved over the week, and she has an appointment with her piece dyer next . She reports no nausea, vomiting, constipation, diarrhea, darkened or bloody stools, painfulurination, or blood in the urine. She reports increased thirst at night but not during the day, no increased hunger, and no insensitivity to temperatures. She had a blood transfusion in 2018 due to the uterine inversion but has no history of anemia, easy bruising, or bleeding. She reports no numbness, tingling, sensation loss, or paresthesias. She reports chronic low back pain but no muscle or joint pain, swelling or cyanosis of the extremities, or nail clubbing. She reports no anxiety, depressi on, or suicidal or homicidal thoughts. She has not had recent lab work. SOCIAL HISTORY She smokes 3 cigarettes a day. She has been smoking for about 15 years. She used to be a pack to a pack and a half a day smoker, but she has cut down to the 3. She said that overall her goal is to quit, but it has been a little difficult. She denies any recreational drug use, rarely drinks alcohol,cut out caffeine, feels safe at home. FAMILY HISTORY She does have a family medical history mostly on her mother's side. Her mother had type 2 diabetes,CHF, she had some ovarian and cervical cancer and Parkinson's disease. Her mother's father had type2 diabetes, congestive heart failure as well as Parkinson's, then the grandmother had lymphoma and lung cancer. ALLERGIES She does not have any allergies to medications, food, environment. IMMUNIZATIONS She has her COVID-19 vaccine. Depression: Not on file reports that she has been smoking cigarettes. She has a 2.5 pack-year smoking history. She has never used smokeless tobacco. She reports that she does not drink alcohol and does not use drugs. OBJECTIVE: 03/16/2018 12:00 PM 02/09/2024 8:45 AM Vitals BMI 35.02 kg/m2 40.67 kg/m2 BSA (m2) 2.14 m2 2.3 m2 Systolic 103 118 Diastolic 59 62 Heart Rate 115 SpO2 100 % Temp 98.6 F Height (in) 5' 6 5' 6 Weight (lb) 217 252 Visit Report Report Physical Exam Constitutional: General: She is not in acute distress. Appearance: She is not ill-appearing. HENT: Head: Normocephalic. Cardiovascular: Rate and Rhythm: Normal rate and regular rhythm. Heart sounds: No murmur heard. Pulmonary: Effort: Pulmonary effort is normal. Breath sounds: Normal breath sounds. No wheezing. Abdominal: General: Abdomen is flat. There is no distension. Tenderness: There is no abdominal tenderness. Musculoskeletal: General: No deformity. Normal range of motion. Cervical back: Normal range of motion. Skin: General: Skin is warm and dry. Neurological: General: No focal deficit present. Mental Status: She is alert and oriented to person, place, and time. Psychiatric: Mood and Affect: Mood normal. Behavior: Behavior normal. Thought Content: Thought content normal. Judgment: Judgment normal. Physical Exam Results No results found for this or any previous visit (from the past 672 hour(s)). ASSESSMENT AND PLAN: Assessment/Plan Diagnoses and all orders for this visit: Wellness examination - Vitamin D 25 hydroxy Total; Future - CBC and differential; Future - Comprehensive metabolic panel; Future - Lipid panel; Future - Vitamin B12; Future - TSH; Future Screening for heart disease - CBC and differential; Future - Comprehensive metabolic panel; Future - Lipid panel; Future Abnormal weight gain - TSH; Future Encounter for vitamin deficiency screening - Vitamin D 25 hydroxy Total; Future - Vitamin B12; Future Chronic fatigue - Vitamin D 25 hydroxy Total; Future - Vitamin B12; Future - TSH; Future Insulin resistance - Hemoglobin A1c; Future Assessment & Plan 1. Weight management. She has been struggling with weight loss despite dietary changes and regular walking. Blood work will be ordered today to assess thyroid function, vitamin levels, and blood sugar to rule out prediabetes or diabetes. Depending on the results, medication options for weight loss will be discussed. Shepreviously had success with phentermine but discontinued due to cost. Current guidelines allow for longer use if 5% body weight is lost in the first 3 months, with follow-up every 3 months thereafter. 2. Chronic low back pain. She reports chronic low back pain, which has persisted for years. No specific treatment plan was discussed during this visit. 3. Abdominal pain. She is experiencing left-sided abdominal pain, which she suspects is due to a cyst rupture. She is scheduled to see her piece dyer next for further evaluation. 4. Increased thirst at night. She reports increased thirst at night but not during the day. Blood work will be ordered to assess for potential underlying causes, including diabetes. 5. Smoking. She smokes 3 cigarettes a day and has been smoking for about 15 years. She has significantly reduced her smoking from a pack to a pack and a half per day and aims to quit. Smoking cessation support and resources will be discussed at the follow-up visit. 6. Health Maintenance. She has received her COVID vaccine and is scheduled to get her flu vaccine for work. No other preventive screenings or vaccines were discussed. Follow-up Return in a few weeks for follow-up on blood work results and to discuss potential medication options for weight loss. Patient Active Problem List Diagnosis Class 3 severe obesity without serious comorbidity with body mass index (BMI) of 40.0 to 44.9 in adult ([facility]) Hidradenitis suppurativa Tobacco use Past Medical History: Diagnosis Date Chronic tonsillitis 04/28/2017 Headache History of transfusion 12/26/2017 Obesity Ovarian cyst Stress incontinence of urine 02/09/2024 documented in this encounterAudrain Medical [id number] Evaluation note* Encounter Date Diagnosis Assessment Notes Treatment Notes Treatment Clinical Notes Jul, Sore throat (ICD-10 - J02.9) Advised patient that rapid Strep test was negative today in office. Will send in throat culture, will call with results in 2-5 days. Advised that at time of results, treatment plan may change. Will send in rx of steroid for tonsillar inflammation, ear effusion. Discussed infection control and good hand hygiene. Supportive care as directed. Push fluids and rest, Tylenol as needed for fever or discomfort, warm salt water gargles, throat lozenges as needed. Patients symptoms should improve in the next 48 hours, eval by PCP or UC if symptoms have not improved with treatment. Discussed in depth warning symptoms that require immediate eval. Patient verbalizes understanding and is agreeable to treatment plan [employer] Other 12-27-2022 Evaluation note* Encounter Date Diagnosis Assessment Notes Treatment Notes Treatment Clinical Notes Apr, Injury of coccyx, initial encoun ter (ICD-10 - S39.92XA) Sacroiliac joint pain material was printed Apr,ilateral sacroiliitis (ICD-10 - M46.1)sb Take medications as directed. Use caution when operating machinery with muscle relaxer as it may cause drowsiness. Alternating heat and ice to area 3-4 times per day. Rest a lot Follow up with primary care if there is no symptom improvement within the next week, sooner if symptoms worsen or new symptoms occur. [employer] Other 04-29-2022 Evaluation note* Encounter Date Diagnosis Assessment Notes Treatment Notes Treatment Clinical Notes Aug, Toe swelling (ICD-10 - M79.89) discussed c pt that I am suspicious that this could be a localized reaction to insect sting/bite versus cellulitis. rx sent, take as directed. keep area clean and dry. wash with warm soapy water only. may soak in epsom salt bath 1-2x daily. continue to monitor for worsening or new symptoms and follow up if indicated. immediate evaluation via ER if warning symptoms of intractable pain, red streakscoming from the area headed towards the heart, flu-like symptoms, sensation or motor function deficits. Aug,therDue to infection control protocols for COVID-19 virus, direct physical contact with patient was limited to only the absolute essential needed assessments. [employer] Other 12-27-2021 NoteHNO ID: [id number] Author: Erika Sheehan APRN.RISK AND INSURANCE MANAGER Service: ? Author Type: Nurse Practitioner Type: Progress Notes Filed: 05/12/2021 4:49 PM Note Text: BMI Obesity Medicine Initial Bariatric Surgery Consult Virtual visit Virtual Visit (Audio/Visual) I have discussed the nature of this visit with the patient which will occur via [employer] (Phone, Virtual Visit) and she agrees to proceed with this interaction . Patient Summary:: Isaac Boyle is a 31 year old female who presents on May 12, 2021 for surgical evaluation and treatment of obesity. The patient is undecided on which surgical procedure to pursue Weight History: She reports a family history of obesity and adult onset weight gain. She states her weight gain is related to the following factors, including weight retention . Weight Graph: n/a Weight Gain Promoting Medications: NO Diet: B: skips most days, may have eggs/cereal, coffee (iced) - kareem or at home Snacks: chips etc L: packs tuna salad OR cafeteria food, pop- reg mt dew Snacks: none D: Taco's/chicken nuggets - quick and easy Snacks/beverages: Pop- 3-4 cans per day, minimal water, coffee Characterization of diet:Unstructured, unhealthy snacking and skip meals. History of eating disorders: negative Previous Obesity Treatments: commercial diets and self-directed. Exercise: Regular exercise: No- some resistance - moving patients, no cardio Barriers to regular exercise? None Stress test: no Functional Status: Do heavy work around the house, such as scrubbing floors, lifting or moving heavy furniture (8.00 METs) ?Sleep: ALO NO ; CPAP NO Quality:adequate, Generally restful Electronic Scale Tester Work? NO STOP BANG Criteria: Snoring Tired BMI > 35 Score = 3 STOP BANG Score 3 Past Medical History PAST MEDICAL HISTORY Diagnosis Date - Class 3 severe obesity without serious comorbidity with body mass index (BMI) of 40.0 to 44.9 in adult ([facility]) 05/12/2021 - Hidradenitis suppurativa 05/12/2021 - Tobacco use 05/12/2021 No history of AR, COPD, asthma, peptic ulcer disease, dyslipidemia, hypothyroidism, HTN, cancer, DVT, PE, CVA, T2DM, gout, kidney stones, CKD, OR smoking history No current outpatient medications on file prior to visit. No current facility-administered medications on file prior to visit. ALLERGIES No Known Allergies PAST SURGICAL HISTORY Procedure Laterality Date - LIGATE FALLOPIAN TUBE 2018 Any problems with anesthesia with the above surgeries: No Patient Active Problem List Tobacco use Class 3 severe obesity without serious comorbidity with body mass index (BMI) of 40.0 to 44.9 in adult ([facility]) Hidradenitis suppurativa Resolved Hospital Problems No resolved problems to display. FAMILY HISTORY Problem Relation Age of Onset - Diabetes Mother - Heart Attack Mother - Hypertension Mother - Ovarian cancer Mother - Obesity Mother - No Known Problems Father - No Known Problems Brother - No Known Problems Brother Social History Tobacco Use - Smoking status: Current Every Day Smoker Packs/day: 1.00 Years: 10.00 Pack years: 10.00 Types: Cigarettes - Smokeless tobacco: Never Used Vaping Use - Vaping Use: Never used Substance Use Topics - Alcohol use: Not on file - Drug use: Not on file Review Of Systems Skin: Hydradenitis Respiratory: + snoring,+ RAZO Cardiovascular: No history of chest pain,palpitation,orthopnea,cynosis, + dependent pedel edema Gastrointestinal: No blood in stool, pain with BM, tarry stool, persistent diarrhea or constipation, + heartburn Genitourinary: No burning with urination, blood in urine or incontinence. Hematology/Lymphology Negative for prolonged bleeding, bruising easily or swollen nodes Musculoskeletal: back pain and joint pain multiple Psychiatric: sleep disturbance Endocrine: No history of thyroid disorder,diabetes,cold intolerance,heat,intolerance,polydypsia Neuro: + hx migraine, No history of syncope, paralysis, seizures or tremors Physical Exam Ht 167.6 cm (5' 6 ) Wt 114.8 kg (253 lb) BMI 40.84 kg/m? BMI = Body mass index is 40.84 kg/m?. GENERAL: AANDO, pleasant, AND Respiratory: non labored Neuro: no obvious deficits Impression Isaac Boyle is a 31 year old female with Class III obesity who presented today for medical evaluation as she prepares for bariatric surgery. She has the following metabolic complications of obesity - unknown, has not had a physical exam or labs recently. Other medical conditions as noted above. She is a candidate for bariatric and metabolic surgery. she will be evaluated by our multidisciplinary team in preparation for surgery. Discussed the importance of taking post-operative vitamins and reviewed vitamin levels ordered today. Patient understands that any variations of B vitamins or Vitamin D will be corrected pre-operatively. Plan Based on the severity and resistance (more content not included)...[facility] hospitalEvaluation noteNo assessment information availablePromedica Defiance [facility] Work Phone: Evaluation noteNo InformationNortClarion Hospital [employer] Other Evaluation note* Diagnosis Well woman exam with routine gynecological exam Routine gynecological examination Hx of ovarian cyst Acute left lower quadrant pain documented in this encounter [facility] HealthcareEvaluation note* Diagnosis Abnormal weight gain- Primary Vitamin D insufficiency Dyslipidemia (high LDL; low HDL) ([facility]) Other and unspecified hyperlipidemia documented in this encounter [facility] HealthcareEvaluation note* Diagnosis Abnormal weight gain documented in this encounter [facility] HealthcareEvaluation note* Diagnosis Abnormal weight gain documented in this encounter [facility] HealthcareEvaluation note* Diagnosis Wellness examination- Primary Screening for heart disease Screening for other and unspecified cardiovascular conditions Abnormal weight gain Encounter for vitamin deficiency screening Chronic fatigue Other malaise and fatigue Insulin resistance Other abnormal glucose documented in this encounter [facility] HealthcareEvaluation note* Diagnosis Abnormal weight gain documented in this encounter [facility] HealthcareEvaluation note* Diagnosis Adjustment disorder, unspecified type (CMS/HCC) ESTEFANY (generalized anxiety disorder) (CMS/HCC) Generalized anxiety disorder Moderate episode of recurrent major depressive disorder (CMS/HCC) [facility]* Diagnosis Abnormal weight gain documented in [facility] encounter [facility]* Diagnosis Adjustment disorder, unspecified type (CMS/HCC)- Primary Abnormal weight gain documented [facility]* Diagnosis ESTEFANY (generalized anxiety disorder) (CMS/HCC) Generalized anxiety disorder Moderate episode of recurrent major depressive disorder (CMS/HCC) documented [facility]* Diagnosis ESTEFANY (generalized anxiety disorder) (CMS/HCC) Generalized anxiety disorder Moderate episode of recurrent major depressive disorder (CMS/HCC) documented [facility]* Diagnosis Abnormal weight gain documented in [facility] encounter [facility]* Diagnosis ESTEFANY (generalized anxiety disorder) Generalized anxiety disorder Moderate episode of recurrent major depressive disorder (HCC) documented [facility] encounter [facility]* Diagnosis ESTEFANY (generalized anxiety disorder) Generalized anxiety disorder Moderate episode of recurrent major depressive disorder (HCC) documented [facility]* Diagnosis Class 2 obesity due to excess calories without serious comorbidity with body mass index (BMI) of 35.0 to 35.9 in adult documented [facility] encounter [facility]* Diagnosis ESTEFANY (generalized anxiety disorder) Generalized anxiety disorder Moderate episode of recurrent major depressive disorder (HCC) documented in [facility] encounter [facility]* Diagnosis Class 2 obesity due to excess calories without serious comorbidity with body mass index (BMI) of 35.0 to 35.9 in adult- Primary documented in this encounter [facility]* Diagnosis ESTEFANY (generalized anxiety disorder) Generalized anxiety disorder Moderate episode of recurrent major depressive disorder (HCC) documented [facility] encounter [facility] HealthcareHistory general Narrative - Reported* Type Description Date Surgical History tubal ligation Hospitalization HistoryChild [employer] Other Reason for visit Narrative* Consultation (Routine) - ClosedSpecialtyDiagnoses / ProceduresReferred By ContactReferred To Contact Behavioral Health Diagnoses Adjustment disorder, unspecified type (CMS/HCC) Procedures CO OFFICE/OUTPATIENT NEW HIGH MDM 60 MINUTES Lynn Pope, DO [address] [place] [address] Phone: tel: fax: Yeimi Gunn, SAMPLE PATTERNMAKER-S [address] [facility] [address] [place] [address] Phone: tel: fax: Referral IDStatusReasonStart DateExpiration DateVisits RequestedVisits [id number] Specialty Services Required / [facility] Summary Purpose Family History No Family History Records Found Relationship Condition Age at Onset Recorded Date/T melissa mother Diabetes mellitus Unknown Advance Directives No Advanced Directives Records Found Advance Directive Response Recorded Date/ Time Advance Directives No May 26, 2017 1:49pm Advance Directive Response Recorded Date/ Time Advance Directives No May 26, 2017 2:49pm NameRelationshipHealthcare Agent RelationshipCommunicationAdam ChapbellevueSpouse Health Care Agent* NameRelationshipHealthcare Agent RelationshipCommunicationAdam ChapbellevueSpouse Health Care Agent* NameRelationshipHealthcare Agent RelationshipCommunicationAdam ChapbellevueSpouse Health Care Agent* NameRelationshipHealthcare Agent RelationshipCommunicationAdam ChapbellevueSpouse Health Care Agent* NameRelationshipHealthcare Agent RelationshipCommunicationAdam ChapbellevueSpouse Health Care Agent* NameRelationshipHealthcare Agent RelationshipCommunicationAdam ChapmanSpouse Health Care Agent* NameRelationshipHealthcare Agent RelationshipCommunicationAdam ChapmanSpouse Health Care Agent* NameRelationshipHealthcare Agent RelationshipCommunicationAdam ChapmanSpouse Health Care Agent* NameRelationshipHealthcare Agent RelationshipCommunicationAdam ChapmanSpouse Health Care Agent* NameRelationshipHealthcare Agent RelationshipCommunicationAdam ChapbellevueSpouse Health Care Agent* NameRelationshipHealthcare Agent RelationshipCommunicationAdam ChapbellevueSpouse Health Care Agent* NameRelationshipHealthcare Agent RelationshipCommunicationAdam ChapmanSpouse Health Care Agent* NameRelationshipHealthcare Agent RelationshipCommunicationAdam ChapmanSpouse Health Care Agent* NameRelationshipHealthcare Agent RelationshipCommunicationAdam ChapmanSpouse Health Care Agent* NameRelationshipHealthcare Agent RelationshipCommunicationAdam ChapmanSpouse Health Care Agent* NameRelationshipHealthcare Agent RelationshipCommunicationAdam ChapmanSpouse Health Care Agent* NameRelationshipHealthcare Agent RelationshipCommunicationAdam ChapmanSpouse Health Care Agent* NameRelationshipHealthcare Agent RelationshipCommunicationAdam ChapmanSpouse Health Care Agent* NameRelationshipHealthcare Agent RelationshipCommunicationAdam ChapmanSpouse Health Care Agent* NameRelationshipHealthcare Agent RelationshipCommunicationAdam ChapmanSpouse Health Care Agent* Chief Complaint and Reason for Visit Chief Complaint S39.92XA Chief Complaint head cold x 3 weeks Additional Source Comments INFORMATION SOURCE (unrecogn ized section and content) DATE CREATED AUTHOR 02/07/2018 [facility] DATE CREATED AUTHOR AUTHOR'S ORGANIZ ATION 08/14/2018 [facility] DATE CREATED AUTHOR AUTHOR'S ORGANIZ ATION 11/10/[address] [facility] DATE CREATED AUTHOR AUTHOR'S ORGANIZ ATION 08/07/2021 [facility] DATE CREATED AUTHOR AUTHOR'S ORGANIZ ATION 07/09/2022 [facility] DATE CREATED AUTHOR AUTHOR'S ORGANIZ ATION 08/20/2022 [facility] DATE CREATED AUTHOR AUTHOR'S ORGANIZ ATION 03/23/2025 [facility] REASON FOR VISIT (unrecogniz ed section and content) ReasonCommentsWell Women VisitReasonCommentsFollow-upReasonOnset DateCommentsMed [id number] DateCommentsMed Cihqez2706/14/2024ReasonOnset Date CommentsMed Pfusbo6108/15/2024ReasonCommentsFollow-upReasonOnset DateCommentsMed [id number]/19/2024ReasonOnset DateCommentsMed Jlxgyo8611/27/2024ReasonCommentsMed Change RequestReasonCommentsWeight Check Care Teams (unrecognized sec tion and content) Team Status: Inactive Member Role Status Dates ARMEN Cruz Attending Provider Active Team Status: Inactive Member Role Status Dates ARMEN Cruz Attending Provider Active NON STAFFPrimary Care ProviderActive Team Status: Inactive Member Role Status Dates Liliam Lim APRN Attending Provider Active Team Status: Active Member Role Status Dates PHYSICIAN NO FAMILY Primary Care Provider Active Team Status: Inactive Member Role Status Dates PHYSICIAN NO FAMILY Primary Care Provider Active Start: December 04, 2023 End: December 04, 2023Vickie Griggs ProviderActiveStart: December 04, 2023 End: December 04, 2023Team MemberRelationshipSpecialtyStart DateEnd Date Lynn Pope, DO [address] [place] [address] PCP - General02/02/24Team MemberRelationshipSpecialtyStart DateEnd Date Lynn Pope, DO [address] [place] [address] PCP - General02/02/24Team MemberRelationshipSpecialtyStart DateEnd Date Lynn Pope, DO [address] [place] [address] PCP - General02/02/24Team MemberRelationshipSpecialtyStart DateEnd Date Lynn Pope, DO [address] [place] [address] PCP - General02/02/24Team MemberRelationshipSpecialtyStart DateEnd Date Lynn Pope, DO [address] [place] [address] PCP - General02/02/24Team MemberRelationshipSpecialtyStart DateEnd Date Lynn Pope, DO [address] [place] [address] PCP - General02/02/24Team MemberRelationshipSpecialtyStart DateEnd Date Lynn Pope, DO [address] [place] [address] [facility]02/02/24Team MemberRelationshipSpecialtyStart DateEnd Date Lynn Pope, DO [address] [place] [address] [facility] - General02/02/24Team MemberRelationshipSpecialtyStart DateEnd Date Lynn Pope, DO [address] [place] [address] [facility] - General02/02/24Team MemberRelationshipSpecialtyStart DateEnd Date Lynn Pope, DO [address] [place] [address] PCP - General02/02/24Team MemberRelationshipSpecialtyStart DateEnd Date Lynn Pope, DO [address] [place] [address] PCP - General02/02/24 Lynn Pope, DO [address] [place] [address] PCP - Vincent Nsirestoxu85/1/24Team MemberRelationshipSpecialtyStart DateEnd Date Lynn Pope, DO [address] [place] [address] PCP - General02/02/24 Lynn Pope, DO [address] [place] [address] PCP - Vincent Kqalfluedc83/1/24Team MemberRelationshipSpecialtyStart DateEnd Date Lynn Pope, DO [address] [place] [address] PCP - General02/02/24 Lynn Pope, DO [address] [place] [address] PCP - Vincent Oopfctcbwz91/1/24Team MemberRelationshipSpecialtyStart DateEnd Date Lynn Pope, DO [address] [place] [address] PCP - General02/02/24 Lynn Pope, DO [address] [place] [address] PCP - Vincent Xiwxloqjfy14/1/24Team MemberRelationshipSpecialtyStart DateEnd Date Lynn Pope, DO [address] [place] [address] PCP - General02/02/24 Lynn Pope, DO [address] [place] [address] PCP - Vincent Ofkyydqvgs07/1/24Team MemberRelationshipSpecialtyStart DateEnd Date Lynn Pope, DO [address] [place] [address] PCP - General02/02/24 Lynn Pope, DO [address] [place] [address] PCP - Vincent Zjyswgpcbq67/1/24Team MemberRelationshipSpecialtyStart DateEnd Date Lynn Pope, DO [address] [place] [address] PCP - General02/02/24 Lynn Pope, DO [address] [place] [address] PCP - Vincent Kfqckzppjv04/1/24Team MemberRelationshipSpecialtyStart DateEnd Date Lynn Pope, DO [address] [place] [address] PCP - General02/02/24 Lynn Pope, DO [address] [place] [address] PCP - Vincent Kyfgceebtu47/1/24Team MemberRelationshipSpecialtyStart DateEnd Date Lynn Pope, DO [address] [place] [address] PCP - General02/02/24 Lynn Pope, DO [address] [place] [address] PCP - Vincent Ncopwsuxls95/1/24Team MemberRelationshipSpecialtyStart DateEnd Date Lynn Pope, DO [address] [place] [address] PCP - General02/02/24Team MemberRelationshipSpecialtyStart DateEnd Date Lynn Pope, DO [address] [place] [address] PCP - General02/02/24Team MemberRelationshipSpecialtyStart DateEnd Date Lynn Pope, DO [address] [place] [address] PCP - General02/02/24Team MemberRelationshipSpecialtyStart DateEnd Date Lynn Pope, DO [address] [place] [address] PCP - General02/02/24Team MemberRelationshipSpecialtyStart DateEnd Date LebanonLynn Denise, DO [address] [place] [address] PCP - General02/02/24Team MemberRelationshipSpecialtyStart DateEnd Date Lynn Pope, DO [address] [place] [address] PCP - General02/02/24Team MemberRelationshipSpecialtyStart DateEnd Date Lynn Pope, DO [address] [place] [address] PCP - General02/02/24Team MemberRelationshipSpecialtyStart DateEnd Date Lynn Pope, DO [address] [place] [address] PCP - General02/02/24Team MemberRelationshipSpecialtyStart DateEnd Date Lynn Pope, DO [address] [place] [address] PCP [facility]02/02/24 Goals (unrecognized section and content) Goals may be documented in a n alternate section FOR RECORDS PERTAINING TO PATIENTS WHO ARE OR HAVE BEEN ENROLLED IN A CHEMICAL DEPENDENCY/SUBSTANCEABUSE PROGRAM, SOME INFORMATION MAY BE OMITTED. This clinical summary was aggregated from multiple sources. Caution should be exercised in using it in the provision of clinical care. This summary normalizes information from multiple sources, and as a consequence, information in this document may materially change the coding, format and clinical context of patient data. In addition, data may be omitted in some cases. CLINICAL DECISIONS SHOULD BE BASED ON THE PRIMARY CLINICAL RECORDS. [facility] [employer] [facility]. provides no warranty or guarantee of the accuracy or completeness of information in this document.
--- OUTSIDE RECORDS SUMMARY | 2025-05-14 21:50 | XMS_ITS | Clinical Summary ---
Author Organization [facility] Address [address] [place] [address] Care Team Providers Care Prescription Clerk Name Role Phone [place] Primary Care Provider Allergies No known active allergies Medications MedicationSigDispense QuantityRefillsLast FilledStart DateEnd DateStatus naltrexone (Depade) 50 MG tablet Indications:Class 2 obesity due to excess calories without serious comorbidity with body mass index (BMI) of 35.0 to 35.9 in adultTake 1 tablet (50 mg) by mouth Daily 30 tablet 506Active buPROPion SR (Wellbutrin SR) 150 MG 12 hr tablet Indications:Class 2 obesity due to excess calories without serious comorbidity with body mass index (BMI) of 35.0 to 35.9 in adultTake 1 tablet (150 mg) by mouth in the morning and 1 tablet (150 mg) before bedtime. Do not crush, chew, or split. 60 tablet 5Active Adapalene-Benzoyl Peroxide 0.1-2.5 % gel Indications:Acne, unspecified acne typeApply pea-size amount to T-zone, chin and problem areas nightly. 45 g 5Active metFORMIN XR (Glucophage-XR) 500 MG 24 hr tablet Indications:PCOS (polycystic ovarian syndrome)Take 1 tablet (500 mg) by mouth in the evening. Take with meals Do not crush, chew, or split. 30 tablet 501/6Active cholecalciferol (Vitamin D-3) 50 MCG (1999 UT) tablet Indications:Vitamin D insufficiencyTake 1 tablet (50 mcg) by mouth Daily 90 tablet Discontinued Active Problems ProblemNoted DateDiagnosed DateGAD (generalized anxiety disorder)07/31/2024 Moderate episode of recurrent major depressive vkqovotu82/17/2025Nicotine opgbunsikr19/03/2025Mixed urge and stress pmivttbtgwxr46/03/2025Gastroesophageal reflux oikprsb4207/17/2024Social anxiety oqsepdtx17/03/9452Coywrski69/03/2025 Abndplyjy64/03/2025lass 3 severe obesity without serious comorbidity with body mass index (BMI) of 40.0 to 44.9 in adult05/12/2021Hidradenitis suppurativa 05/12/2021Tobacco use05/12/2021 Resolved Problems ProblemNoted DateDiagnosed DateResolved DateStress incontinence of urine hronic yxyvwujqeka89 Encounters DateTypeDepartmentCare AvcvWroxqhdozux54/29/2025 11:00 AM ESTProcedure Visit [facility] [address] [place] [address] Radha Linder NP PCOS (polycystic ovarian syndrome) (Primary Dx); Well woman exam with routine gynecological exam; Acne, unspecified acne type05/14/2025amboo flowsheet [facility] [address] [place] [address] Radha Linder NP 05/02/2025 11:30 AM ESTClinical Support [facility] [address] [place] [address] Lesli Cain LPCC ESTEFANY (generalized anxiety disorder) ; Moderate episode of recurrent major depressive disorder (HCC)05/02/2025amboo flowsheet [facility] [address] [place] [address] Lesli Cain LPCC 05/02/20256222Gzvzwy91/11/2025 7:30 AM ESTClinical Support [facility] [address] [place] [address] Lesli Cain LPCC ESTEFANY (generalized anxiety disorder) ; Moderate episode of recurrent major depressive disorder (HCC)04/26/2025amboo flowsheet [facility] [address] [place] [address] Lesli Cain, DANIELA 04/26/20256870Oaiugj37/26/2025 10:30 AM ESTClinical Support [facility] [address] [place] [address] Lesli Cain LPCC ESTEFANY (generalized anxiety disorder) ; Moderate episode of recurrent major depressive disorder (HCC)04/11/2025amboo flowsheet [facility] [address] [place] [address] Lesli Cain LPCC 04/11/20259201Nsjrpe91/06/2025 7:30 AM ESTClinical Support [facility] [address] [place] [address] Lesli Cain [facility] ESTEFANY (generalized anxiety disorder) ; Moderate episode of recurrent major depressive disorder (HCC)03/22/2025amboo flowsheet [facility] [address] [place] [address] Lesli Cain LPCC 03/22/20255024Cjpolw04/22/2025 1:00 PM EDTClinical Support [facility] [address] [place] [address] Lesli Cain LPCC ESTEFANY (generalized anxiety disorder) ; Moderate episode of recurrent major depressive disorder (HCC)03/07/2025amboo flowsheet [facility] [address] [place] [address] Lesli Cain, DANIELAC 03/07/20256670Mzzyrn95/15/2025 12:30 PM EDTClinical Support [facility] [address] [place] [address] [facility] EST[facility]ANY (generalized anxiety disorder) ; Moderate episode of recurrent major depressive disorder (HCC)02/28/2025amboo flowsheet [facility] [address] [place] [address] Lesli Cain, DANIELAC 02/28/20258225Rupeuc01/08/2025 12:30 PM EDTClinical Support [facility] [address] [place] [address] Lesli Cain, STEVIE ESTEFANY (generalized anxiety disorder) ; Moderate episode of recurrent major depressive disorder (HCC)02/21/2025amb flowsheet [facility] [address] [place] [address] Lesli Cain, [facility] 02/21/2025Travelfrom Last 3 Months Family History Medical HistoryRelationNameCommentsDiabetesMaternal GrandfatherThomas mallory ParkinsonismMaternal GrandfatherThomas smithCancerMaternal GrandmotherTheresa hartleylymphoma, lung cancerCancerMotherBetty joinerDiabetesMotherBetty gunner mate Ovarian cancerMotherBetty joinerParkinsonismMotherBetty joinerADD / ADHDOther 1 Sincere Maya (Son)ADD / ADHDOther 2Mason Maya (Son)ADD / ADHDOther 3Mason Maya (Son)ADD / ADHDOther 4Mason Maya (Son)RelationNameStatusComments FatherAliveMaternal GrandfatherThomas smithDeceasedMaternal GrandmotherTheresa hartleyDeceasedMotherBetty joinerAliveOther 1Mason Maya (Son)AliveOther 2 Sincere Maya (Son)AliveOther 3Mason Maya (Son)AliveOther 4Mason Maya (Son)AlivePaternal GrandmotherDeceased Social History Tobacco UseTypesPacks/DayYears UsedDateSmoking Tobacco: Some DaysCigarettes0.310 Smokeless Tobacco: Never Tobacco Cessation:Ready to Q uit: No; Counseling Given: Yes Alcohol UseStandard Drinks/WeekCommentsNever0 (1 standard drink = 0.6 oz pure alcohol)B1300 Health LiteracyAnswerDate RecordedHow often do you need to have someone help you when you read instructions, pamphlets, or other written material from your doctor or pharmacy?Never02/02/2024Social Connection and Isolation PanelAnswerDate RecordedIn a typical week, how many times do you talk on the phone with family, friends, or neighbors?Once a week02/02/2024How often do you get together with friends or relatives?Once a week02/02/2024How often do you attend taoist or shinto services?Never02/02/2024o you belong to any clubs or organizations such as taoist groups, unions, Specialized Tech or athletic jovanna ups, or school groups?No02/02/2024How often do you attend meetings of the clubs or organizations you belong to?Never02/02/2024re you , , , , never , or living with a partner?Vziyhlg9002/02/2024 AUDIT-CAnswerDate RecordedQ1: How often do you have a drink containing alcohol? Monthly or less02/02/2024Q2: How many drinks containing alcohol do you have on a typical day when you are drinking?1 or Q3: How often do you have six or more drinks on one occasion?Never02/02/2024Overall Financial Resource Strain (CARDIA)AnswerDate RecordedHow hard is it for you to pay for the very basics like food, housing, medical care, and heating?Somewhat hard02/02/2024HQ-2Answer Date RecordedPatient Health Questionnaire-2 Rglnf942F[facility]unn[facility] [place] of Occup[facility] - Occupational Stress QuestionnaireAnswerDate RecordedDo you feel stress - tense, restless, nervous, or anxious, or unable to sleep at night because yourmind is troubled all the time - these days?Not at all02/02/2024 Exercise Vital SignAnswerDate RecordedOn average, how many days per week do you engage in moderate to strenuous exercise (like a brisk walk)?7 days02/02/2024On average, how many minutes do you engage in exercise at this level?60 min 02/02/2024Hunger Vital SignAnswerDate RecordedWithin the past 12 months, you worried that your food would run out before you got the money to buymore.Never true02/02/2024Within the past 12 months, the food you bought just didn't last and you didn't have money to get more.Never true02/02/2024RAPARE - TransportationAnswerDate RecordedIn the past 12 months, has lack of transportation kept you from medical appointments or from getting medications?No 02/02/2024In the past 12 months, has lack of transportation kept you from meetings, work, or from getting things needed for daily living?No02/02/2024 Housing Stability Vital SignAnswerDate RecordedIn the last 12 months, was there a time when you were not able to pay the mortgage or rent on time?No02/02/2024In the past 12 months, how many times have you moved where you were living?1 02/02/2024t any time in the past 12 months, were you homeless or living in a long term (including now)?No02/02/2024CommentsUnknownSex and Gender InformationValueDate RecordedSex Assigned at YougcVnbdrz30/18/2024 9:56 AM EDT Legal AvoCjynjp80/15/2023 8:27 PM EDTGender TldrqtdxWdewfv03/18/2024 9:56 AM EDT Sexual OrientationNot on file Last Filed Vital Signs Vital SignReadingTime TakenCommentsBlood Geztlmdj043/6412 11:13 AM EST Bvefu559701/18/2025 10:44 AM REFRkxkvbfhcru10.9 ??C (98.4 ??F)01/18/2025 10:44 AM EDTRespiratory Rate--Oxygen Xtolifhodj612%01/18/2025 10:44 AM EDTInhaled Oxygen Concentration--Duxpbn537 kg (241 lb 12.8 oz)05/14/2025 11:13 AM HZFWxccie700.6 cm (5' 6 )01/18/2025 10:44 AM EDTBody Mass Index39.03001/18/2025 10:44 AM EDT Plan of Treatment DateTypeDepartmentCare Team (Latest Contact Info)Nldrscudqyv14/07/2026 11:30 AM ESTClinical Support [facility] [address] [place] [address] Lesli Cain, [facility] [address] [place] [address] 05/29/2025 9:30 AM ESTAncillary Procedure [facility] [address] [place] [address] [place] [address] 05/30/2025 9:30 AM ESTClinical Support [facility] [address] [place] [address] Lesli Cain, [facility] [address] [place] [address] 06/06/2025 12:30 PM ESTClinical Support [facility] [address] [place] [address] Lesli Cain, [facility] [address] [place] [address] 06/11/2025 8:30 AM ESTOffice Visit [facility] [address] [place] [address] [place] [address] Sonya Valencia PA [address] [place] [address] 07/18/2025 10:20 AM ESTOffice Visit [facility] [address] [place] [address] Perico Pope DO [address] [facility] [address] [place] [address] Health MaintenanceDue DateLast DoneCommentsPneumococcal Vaccine: Pediatrics (0 to 5 Years) and At-Risk Patients (6 to 64 Years) (1 of 2 - PCV)2011 HPV/Xaqdgr7004/05/2022Influenza Vaccine (#1)5Cervical Cancer Screening 02/16/2027Pap Smear Procedures Procedure NamePriorityDate/TimeAssociated DiagnosisCommentsPAP SMEARRoutine 02/17/2024 12:00 AM EDTfrom Last 3 Months or Most Recently Relevant to Health Maintenance Results * Pap Smear (02/17/2024 12:00 AM EDT)Specimen (Source)Anatomical Location / LateralityCollection Method / VolumeCollection TimeReceived TimeSwabCervical swab / Unknown Narrative Authorizing ProviderResult TypeResult StatusAmy Smethport PALAB CYTOLOGY ORDERABLES Final ResultPerforming OrganizationAddressCity/State/ZIP CodePhone Number EXTERNAL LAB from Last 3 Months or Most Recently Relevant to Health Maintenance Insurance Advance Directives NameRelationshipHealthcare Agent RelationshipCommunicationAdam ChapmanSpouse Health Care Agent* Care Teams Team MemberRelationshipSpecialtyStart DateEnd Date Perico Pope DO [address] [address] PCP - General02/02/24
--- OUTSIDE RECORDS SUMMARY | 2025-05-14 21:50 | XMS_ITS | Encounter Summary ---
Author Organization [facility] Address [address] [place] [address] Care Team Providers Care Parking Lot Supervisor Name Role Phone Perico Pope Primary Care Provider + [phone] Encounter Details DateTypeDepartmentCare Team (Latest Contact Info)Kpeiebyhvrz51/17/2025Travel Social History Tobacco UseTypesPacks/DayYears UsedDateSmoking Tobacco: Some [...] relatives?Once a week02/02/2024How often do you attend jew or alevism services?Never4Do you belong to any clubs or organizations such as jew groups, unions, fraternal or athletic groups, or school groups?No 02/02/2024How often do you attend meetings of the clubs or organizations you belong to?Never4Are you , , , , never , or living with a partner?Ohmaloi1802/02/2024UDIT-CAnswerDate RecordedQ1: How often do you have a [...] care, and heating?Somewhat hard02/02/2024HQ-2AnswerDate RecordedPatient Health Questionnaire-2 Maeqz551[facility] [place] of Occupational Health - Occupational Stress QuestionnaireAnswerDate [...] were you homeless or living in a snf (including now)?No02/02/2024 CommentsUnknownSex and Gender InformationValueDate RecordedSex Assigned at KvfiaNjdfwb69/18/2024 9:56 AM EDTLegal LdaSbnezi40/15/2023 8:27 PM EDTGender JxwbxvckMzfidy83/18/2024 9:56 AM EDTSexual OrientationNot on filedocumented as of this encounter Plan of Treatment DateTypeDepartmentCare Team (Latest Contact Info)Ejlzbotkvij84/07/2026 11:30 AM ESTClinical Support [facility] [address] [place] [address] Lesli Cain, [facility] [address] [place] [address] 05/29/2025 9:30 AM ESTAncillary Procedure [facility] [place] [facility] [address] [place] [address] [place] [address] 05/30/2025 9:30 AM ESTClinical Support [facility] [address] [place] [address] Lesli Cain, [facility] [address] [place] [address] 06/06/2025 12:30 PM ESTClinical Support [facility] [address] [place] [address] Lesli Cain, [facility] [address] [place] [address] 06/11/2025 8:30 AM ESTOffice Visit [facility] [address] [place] [phone] Sonya Valencia PA [address] [place] [address] 07/18/2025 10:20 AM ESTOffice Visit [facility] [place] [facility] [address] [place] [address] Perico Pope DO [address] [place] [address] documented as of this encounter Visit Diagnoses Not on filedocumented in this encounter Care Teams Team MemberRelationshipSpecialtyStart DateEnd Date Perico Pope DO [address] [facility] [address] [place] [address] PCP - General02/02/24documented as of this encounter
--- OUTSIDE RECORDS SUMMARY | 2025-05-14 21:50 | XMS_ITS | Patient Health Record ---
Author Organization [facility] vices Address [address] [place], [place] [address] Care Team Providers Care Cork Sorter Name Role Phone Marisa Kline Unavailable Allergies No Known Allergies Reason For Referral No Information Social History Sex Assigned At : Social History Observation Description Sex Assigned At Female Social History Additional DetailsCategorySocial InfoOptionsDetailsMigrated Social History Migrated Social History Barriers to Learning, AttributeTitle: None, ProblemStatus: Active, , Caffeine Use, COMMENTS: 1 cup coffee occasionally, ProblemStatus: Inactive, , Cultural or orthodoxy beliefs that would affect your care here?, AttributeTitle: No, ProblemStatus:Active, , Culture/Language Barrier, AttributeTitle: No, ProblemStatus: Active, , Current tobacco use, AttributeTitle: Current every day smoker, ProblemStatus: Active, , Current tobacco use, AttributeTitle: Has tried unsuccessfully in the past to quit, ProblemStatus: Active, , Current tobacco use, AttributeTitle: Smokes < 1 pack of cigarettes per day, ProblemStatus: Active, , Current tobacco use, AttributeTitle: Would like to quit, ProblemStatus: Active, , Current Work/Study Status, AttributeTitle: Unemployed not looking for work, ProblemStatus: Active, , Education Level, AttributeTitle: College, ProblemStatus: Active, , How often do you need to have someone help you read instructions?, AttributeTitle: Never, ProblemStatus: Active, , Learning preference , AttributeTitle: Doing or Practicing, ProblemStatus: Active, , Learning preference , AttributeTitle: Reading, ProblemStatus: Active, , Living Situation, AttributeTitle: Lives with spouse, COMMENTS: and 4 children, ProblemStatus: Active, , 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0)Activeconfirmed ProblemGastroesophageal reflux disease (712091395)GERD (gastroesophageal reflux disease) (K21.9)ActiveconfirmedProblemDepression screening (315306785)Screening for depression (Z13.31)ActiveconfirmedDescription:Depression screenProblem Insomnia (693634504)Insomnia (G47.00)ActiveconfirmedProblemObesity (498253558) Obesity (E66.9)ActiveconfirmedComment:will have labwork done first to r/o any metabolic issues. consider topamax for concurrent migraines. discussed referral to weight mgmt program, will defer for now.,ProblemMigraine (12302079)Migraine (G43.909)ActiveconfirmedProblemChronic tonsillitis (43614916)Tonsillitis, chronic (J35.01)Activeconfirmed Comment:-here to establish care and get referred to Gen surgeon or ENT for tonsillectomy d/t chronic tonsillitis -there is diffuse tonsillar and pharyngeal erythema and mild edema seen during exam w/o exudate or lymphadenopathy -there is mild intermittent dry cough, it does hurt with swallowing -per pt she has the hx of chronic tonsillitis and strep throat -encouraged to do warm salt water gargles on regular basis and cough drops OTC -she denies any fever or respiratory distress -refer to Gen Surgeon / ENT for further evaluation / tonsillectomy f/u as needed, ProblemNicotine dependence (85871512)Nicotine dependence (F17.200)Active confirmedComment:patient would like to start chantix. will have Renal function completed if WNL start chantix. advised use of medication & possible side effects., Plan Of Treatment No Information Insurance Providers Payer Name Payer Address Payer Phone Subscriber Number Group Number Insured Name Patient Relationship to Insured Coverage Start Date Coverage End Date [employer] [facility] [address] [place] [address] [id number] Moon Andrade - patient is the cazrsbx44/aresource [facility] [address] [place], [place] [id number], ShannonSelf - patient is the insuredDMedicaid [facility]PO [address] [place], [place] [id number], ShannonSelf - patient is the insured /06/1752Medicaid [facility] after [address] [place] [address] [id number], ShannonSelf - patient is the insured Medical (General) History Surgical History Surgery Date(Month/Year) Tubal Ligation, ProblemStatus: Active, None, ProblemStatus: Inactive,2021-01-27
--- OUTSIDE RECORDS SUMMARY | 2025-05-14 21:50 | XMS_ITS | Patient Health Record ---
Author Organization [facility] [place] Address [address] [place] [address] Care Team Providers Care Piston Maker Name Role Phone Raisa ALEX, Marisa Primary Care Provider Un available Reason For Referral No Information Social History Tobacco Use: Social History Observation Description Date Details (start date - stop date) Current Smoker NA - NA Tobacco Use/Smoking Question Answer Notes Patient is a current smoker How often do you smoke cigarettes?every dayAdditional Findings: Tobacco User Moderate cigarette smoker (10-19 cigs/day) Problems Problem Type SNOMED Code ICD Code Onset Dates Problem Status W/U Status Risk Notes Problem Mixed incontinence (912052493) M ixed urge and stress incontinence (N39.46) Activeconfirmed Plan Of Treatment No Information Insurance Providers Payer Name Payer Address Payer Phone Subscriber Number Group Number Insured Name Patient Relationship to Insured Coverage Start Date Coverage End Date [employer] [place] [address] [place], [place] [id number] Karly Boyle Self - patient is the insured Medical (General) History Surgical History Surgery Date(Month/Year) Manual Uterine Inversion Repair - Vagina lly 12/2017
--- OUTSIDE RECORDS SUMMARY | 2025-05-14 21:50 | XMS_ITS | Encounter Summary ---
Author Organization [facility] Address [address] [place] [address] Care Team Providers Care Street Light Inspector Name Role Phone Perico Pope Primary Care Provider [phone] Encounter Details DateTypeDepartmentCare Team (Latest Contact Info)Svkvodaedvw14/17/2025amboo flowsheet [facility] [place] [facility] [address] [facility] [address] [place] [phone] [facility] [address] [facility] [address] [place] [address] Social History Tobacco UseTypesPacks/DayYears UsedDateSmoking Tobacco: Some [...] week02/02/2024How often do you attend taoist or druze services?Never02/02/2024o you belong to any clubs or organizations such as taoist groups, unions, fraternal or athletic groups, or school groups?No 02/02/2024How often do you attend meetings of the clubs or organizations you belong to?Never02/02/2024re you , , , , never , or living with a partner?Dyxyimp1902/02/2024UDIT-CAnswerDate RecordedQ1: How often do you have a [...] care, and heating?Somewhat hard02/02/2024HQ-2AnswerDate RecordedPatient Health Questionnaire-2 Oknuy101[facility] [place] [facility] - Occupational Stress QuestionnaireAnswerDate [...] were you homeless or living in a longterm (including now)?No02/02/2024 CommentsUnknownSex and Gender InformationValueDate RecordedSex Assigned at PitwfDoqexo26/18/2024 9:56 AM EDTLegal PibLlqwwy39/15/2023 8:27 PM EDTGender XkgkgzzqMjtqfa21/18/2024 9:56 AM EDTSexual OrientationNot on filedocumented as of this encounter Plan of Treatment DateTypeDepartmentCare Team (Latest Contact Info)Dhuwxydiuea93/07/2026 11:30 AM ESTClinical Support [facility] [address] [place] [address] Lesli Cain [facility] [address] [place] [address] 05/29/2025 9:30 AM ESTAncillary Procedure [facility] [address] [place] [address] [place] [address] 05/30/2025 9:30 AM ESTClinical Support [facility] [place] [facility] [address] [place] [address] Lesli Cain [facility] [address] [place] [address] 06/06/2025 12:30 PM ESTClinical Support [facility] [place] [facility] [address] [place] [address] Lesli Cain [facility] [address] [place] [address] 06/11/2025 8:30 AM ESTOffice Visit [facility] [place] [facility] [address] [place] [address] Sonya Valencia PA [address] [facility] [place] [address] 07/18/2025 10:20 AM ESTOffice Visit [facility] [place] [facility] [address] [place] [address] Perico Pope DO [address] [place] [address] documented as of this encounter Visit Diagnoses Not on filedocumented in this encounter Care Teams Team MemberRelationshipSpecialtyStart DateEnd Date Perico Pope DO [address] [place] [address] PCP - General02/02/24documented as of this encounter
--- OUTSIDE RECORDS SUMMARY | 2025-05-14 21:50 | XMS_ITS | Encounter Summary ---
Author Organization [facility] Address [address] [facility] [place] [address] Care Team Providers Care Unhairer Name Role Phone Perico Pope Primary Care Provider [phone] Encounter Details DateTypeDepartmentCare Team (Latest Contact Info)Zvbxyetyjid75/29/2025amboo flowsheet [facility] [address] [address] Radha Linder, ABI [address] [facility] [place] [address] Social History Tobacco UseTypesPacks/DayYears UsedDateSmoking Tobacco: Some [...] relatives?Once a week02/02/2024How often do you attend latter-day or druze services?Never02/02/2024o you belong to any clubs or organizations such as latter-day groups, unions, fraternal or athletic groups, or school groups?No 02/02/2024How often do you attend meetings of the clubs or organizations you belong to?Never02/02/2024re you , , , , never , or living with a partner?Khqlwnr8602/02/2024UDIT-CAnswerDate RecordedQ1: How often do you have a [...] care, and heating?Somewhat hard02/02/2024HQ-2AnswerDate RecordedPatient Health Questionnaire-2 Xxssf766[facility] [place] [facility] - Occupational Stress QuestionnaireAnswerDate [...] were you homeless or living in a fdc (including now)?No02/02/2024 CommentsUnknownSex and Gender InformationValueDate RecordedSex Assigned at KtdpbZxjwwx58/18/2024 9:56 AM EDTLegal ThfIgrxyb53/15/2023 8:27 PM EDTGender HysbbuljJngehr52/18/2024 9:56 AM EDTSexual OrientationNot on filedocumented as of this encounter Plan of Treatment DateTypeDepartmentCare Team (Latest Contact Info)Xahgvrdfswz80/07/2026 11:30 AM ESTClinical Support [facility] [address] [place] [address] Lesli Cain [facility] [address] [place] [address] 05/29/2025 9:30 AM ESTAncillary Procedure [facility] [address] [place] [address] [place] [address] 05/30/2025 9:30 AM ESTClinical Support [facility] [place] [facility] [address] [place] [address] Lesli Cain [facility] [address] [place] [address] 06/06/2025 12:30 PM ESTClinical Support [facility] [place] [facility] [address] [place] [address] Lesli Cain [facility] [address] [place] [address] 06/11/2025 8:30 AM ESTOffice Visit [facility] [place] [facility] [address] [place] [address] Sonya Valencia PA [address] [facility] [place] [address] 07/18/2025 10:20 AM ESTOffice Visit [facility] [place] [facility] [address] [place] [address] Perico Pope DO [address] [place] [address] documented as of this encounter Visit Diagnoses Not on filedocumented in this encounter Care Teams Team MemberRelationshipSpecialtyStart DateEnd Date Perico Pope DO [address] [place] [address] PCP - General02/02/24documented as of this encounter
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
== END 2025-05-14 21:45 | disposition home or self-care (01) ==
LOC: LAB 21:44
PROVIDERS: Visit Provider Nurse Practitioner Family
DX: Z01.419 Encounter for gynecological examination (general) (routine) without abnormal findings (principal)
CPT/HCPCS: 87624; 88175